=== PATIENT | male | born 1940 | race Caucasian/White ===

== ENCOUNTER 2018-05-22 10:10 | Inpatient (IN) ==
[2018-05-22 10:45] LABS: Baso # (Auto) 0.1 th/mm3 (0.0-0.2); Baso % (Auto) 1.2 % (0.0-2.0); Eos # (Auto) 0.2 th/mm3 (0.0-0.4); Eos % (Auto) 3.1 % (0.0-4.0); Hematocrit 26.7 % (39.0-51.0); Hemoglobin 8.7 gm/dL (13.0-17.0); Lymph % (Auto) 16.8 % (9.0-44.0); Mean Corpuscular HGB Conc 32.6 % (32.0-36.0); Mean Corpuscular Hemoglobin 26.3 pg (27.0-34.0); Mean Corpuscular Volume 80.7 fL (80.0-100.0); Mean Platelet Volume 8.6 fL (7.0-11.0); Mono # (Auto) 0.4 th/mm3 (0.0-0.9); Mono % (Auto) 7.4 % (0.0-8.0); Neut # (Auto) 4.3 th/mm3 (1.8-7.7); Neut % (Auto) 71.5 % (16.0-70.0); Platelet Count 227 th/mm3 (150-450); Red Blood Count 3.31 mil/mm3 (4.50-5.90); Red Cell Distribution Width 14.6 % (11.6-17.2)
--- NOTE | 2018-05-22 10:48 | XR ---
EXAM DATE: 05/22/2018 10:22 AM EDT AGE/SEX: 78 years / Male INDICATIONS: Chest pains mid sternal with pressure. CLINICAL DATA: This is the patient's subsequent encounter. Patient reports that signs and symptoms h ave been present for 1 day and indicates a pain score of 8/10. MEDICAL/SURGICAL HISTORY: None. None. COMPARISON: [facility] [place], CHEST SINGLE AP, 07/15/2015. . FINDINGS: Cardiomegaly with mild basilar airspace disease and some interstitial prominence that may represent m ild edema. Trace pleural fluid. No pneumothorax. CONCLUSION: Cardiomegaly with probable mild pulmonary edema and basilar atelectasis. Trace pleural fluid. Electronically signed by: Brennon Sanchez MD 05/22/2018 10:46 AM EDT
--- NOTE | 2018-05-22 10:57 | ED ---
HPI General Chief complaint: Chest Pain Stated complaint: e Time Seen by Provider: 05/22/18 10:22 History of Present Illness HPI narrative: Patient is a 78-year-old male presents emergency department with exertional tight sensation in the middle of his chest radiating to both shoulders and up into his neck. Associated with some diaphoresis and shortness of breath which she states is extreme. He states is progressing to the point where he is can only do minimal exertion until he noticed he went to the [place] [facility] after having an episode yesterday, they referred him here by EVAC. He does have a history of left bundle branch block. He states he was last stress test about 6 months ago at an outside facility. He is never had a cardiac catheterization. He was also told that he has lung problems that he developed in the service and his shortness of breath gradually got worse is getting older which he states is true but something different going on today. symptoms moderate, currently resolved, associated signs symptoms in context as above, provoking factors as above. No history of long trips blood clots in his legs or chest. Not currently anticoagulated per Related Data Home Medications Medication Instructions Recorded Confirmed albuterol sulfate 2.5 mg INHALATION QID 05/22/18 05/22/18 amlodipine 5 mg PO DAILY 05/22/18 05/22/18 aspirin [Aspirin Low Dose] 81 mg PO DAILY 05/22/18 05/22/18 budesonide-formoterol 2 puff INHALATION BID 05/22/18 05/22/18 diclofenac sodium 4 g TOPICAL QID 05/22/18 05/22/18 enalapril maleate 10 mg PO DAILY 05/22/18 05/22/18 finasteride 5 mg PO DAILY 05/22/18 05/22/18 metformin 500 mg PO BID 05/22/18 05/22/18 pvaxwfmx-eyuucjcu-gywhaev fum 9 mg PO DAILY 05/22/18 05/22/18 [Multi Vitamin] pravastatin 40 mg PO DAILY 05/22/18 05/22/18 terazosin 10 mg PO DAILY 05/22/18 05/22/18 Allergies Allergy/AdvReac Type Severity Reaction Status Date / Time rosuvastatin AdvReac Mild CRAMPS Verified 05/22/18 10:20 Review of Systems ROS: all other systems reviewed are negative [facility] Family History Family History Other Diabetes Social History Social History Substance History: No History of Abuse Second Hand Smoke Exposure: No Smoking Status: Former smoker Tobacco Type: Cigarettes How Often Do You Have a Drink Containing Alcohol: Never Recent Travel in [facility] within the Last 8 Weeks: No Recent Out of Country Travel within the Last 8 Weeks: No Immunization History Tetanus Immunization: >5 Years Hx Influenza Vaccine This Season: No Exam Narrative Exam Narrative: GENERAL: Well-developed well-nourished quite pleasant male in no obvious distress. SKIN: Focused skin assessment warm/dry. HEAD: Atraumatic. Normocephalic. EYES: Pupils equal and round. No scleral icterus. No injection or drainage. ENT: No nasal bleeding or discharge. Mucous membranes pink and moist. NECK: Trachea midline. No JVD. CARDIOVASCULAR: Regular rate and rhythm. No murmur appreciated. 2+ [place] pulses in all 4 extremities, no carotid bruits, no chest wall tenderness, no murmurs gallops or rubs. RESPIRATORY: No accessory muscle use. Clear to auscultation. Breath sounds equal bilaterally. GASTROINTESTINAL: Abdomen soft, non-tender, nondistended. Hepatic and splenic margins not palpable. MUSCULOSKELETAL: No obvious deformities. No clubbing. No cyanosis. No edema. NEUROLOGICAL: Awake and alert. No obvious cranial nerve deficits. Motor grossly within normal limits. Normal speech. PSYCHIATRIC: Appropriate mood and affect; insight and judgment normal. Course Initial Documented Vital Signs Temperature 97.5 F L 05/22/18 10:14 Pulse Rate 55 L 05/22/18 10:14 Respiratory Rate 18 05/22/18 10:14 Blood Pressure 176/74 H 05/22/18 10:14 Pulse Oximetry 98 05/22/18 10:14 Last Documented Vital Signs Temperature 98.0 F 05/23/18 12:00 Pulse Rate 51 L 05/23/18 12:00 Respiratory Rate 18 05/23/18 12:00 Blood Pressure 137/70 05/23/18 12:00 Pulse Oximetry 97 05/23/18 12:54 Medical Decision Making MDM Narrative Medical decision making narrative: does not show any signs of active ischemia.Patient room to the emergency department, he has some high risk features to his chest pain with exertional type chest pain and tightness. The company with his shortness of breath and apparent pulmonary edema I think that he needs admission to the hospital for further workup and cardiology consultation. Initial troponin negative, EKG does not show any signs of active ischemia but does have a left bundle branch block. This is new compared to previous tracing. However the patient currently comfortable does not meet STEMI criteria and there is no Sgarbossa criteria on this EKG. patient was discussed with medicine for admission and they are agreeable. He was given aspirin in the emergency department, nitroglycerin held as patient currently chest pain-free. He was revisited several times by me and it continues to appear very comfortable heme dynamically stable. On the subject of his pulmonary edema the patient has been saturating well is not in any respiratory distress. There is trace edema of the lower extremities bilaterally. Medical Screen Exam Complete: Yes Emergency Medical Condition: Yes Differential Diagnosis Differential Diagnosis: ACS, NM, coronary disease, pulmonary edema, new onset CHF peer Lab Data Result diagrams: 05/23/18 05:59 05/22/18 10:20 Lab Results 05/22/18 05/22/18 05/22/18 Range/Units 10:20 10:20 10:20 WBC 6.0 (4.0-11.0) th/mm3 RBC 3.31 L (4.50-5.90) mil/mm3 Hgb 8.7 L (13.0-17.0) gm/dL Hct 26.7 L (39.0-51.0) % MCV 80.7 (80.0-100.0) fL MCH 26.3 L (27.0-34.0) pg MCHC 32.6 (32.0-36.0) % RDW 14.6 (11.6-17.2) % Plt Count 227 (150-450) th/mm3 MPV 8.6 (7.0-11.0) fL Neut % (Auto) 71.5 H (16.0-70.0) % Lymph % (Auto) 16.8 (9.0-44.0) % [place] % (Auto) 7.4 (0.0-8.0) % Eos % (Auto) 3.1 (0.0-4.0) % Baso % (Auto) 1.2 (0.0-2.0) % Neut # (Auto) 4.3 (1.8-7.7) th/mm3 Lymph # (Auto) 1.0 (1.0-4.8) th/mm3 [place] # (Auto) 0.4 (0.0-0.9) th/mm3 Eos # (Auto) 0.2 (0.0-0.4) th/mm3 Baso # (Auto) 0.1 (0.0-0.2) th/mm3 WBC Differential . Differential Comment Auto diff final PT (9.8-11.6) sec INR Ratio APTT (24.3-30.1) sec Sodium 141 (136-145) meq/L Potassium 4.8 (3.5-5.1) meq/L Chloride 109 H (98-107) meq/L Carbon Dioxide 23.3 (21.0-32.0) meq/L Anion Gap 9 (5-15) meq/L BUN 20 H (7-18) mg/dL Creatinine 1.27 (0.60-1.30) mg/dL Estimated GFR 55 L (>89) mL/min POC Glucose (68-110) mg/dl Random Glucose 109 H (74-106) mg/dL Calcium 8.2 L (8.5-10.1) mg/dL Total Bilirubin 0.3 (0.2-1.0) mg/dL AST 17 (15-37) U/L ALT 22 (12-78) U/L Alkaline Phosphatase 66 (45-117) U/L Troponin I 0.04 (0.02-0.05) ng/mL B-Natriuretic Peptide 316 H (0-100) pg/mL Total Protein 7.0 (6.4-8.2) g/dL Albumin 3.2 L (3.4-5.0) g/dL 05/22/18 05/22/18 05/22/18 Range/Units 13:55 16:17 16:58 WBC 5.7 (4.0-11.0) th/mm3 RBC 3.20 L (4.50-5.90) mil/mm3 Hgb 8.6 L (13.0-17.0) gm/dL Hct 25.8 L (39.0-51.0) % MCV 80.6 (80.0-100.0) fL MCH 26.8 L (27.0-34.0) pg MCHC 33.2 (32.0-36.0) % RDW 14.7 (11.6-17.2) % Plt Count 222 (150-450) th/mm3 MPV 8.4 (7.0-11.0) fL Neut % (Auto) (16.0-70.0) % Lymph % (Auto) (9.0-44.0) % [place] % (Auto) (0.0-8.0) % Eos % (Auto) (0.0-4.0) % Baso % (Auto) (0.0-2.0) % Neut # (Auto) (1.8-7.7) th/mm3 Lymph # (Auto) (1.0-4.8) th/mm3 [place] # (Auto) (0.0-0.9) th/mm3 Eos # (Auto) (0.0-0.4) th/mm3 Baso # (Auto) (0.0-0.2) th/mm3 WBC Differential Differential Comment PT 11.0 (9.8-11.6) sec INR 1.1 Ratio APTT 27.8 (24.3-30.1) sec Sodium (136-145) meq/L Potassium (3.5-5.1) meq/L Chloride (98-107) meq/L Carbon Dioxide (21.0-32.0) meq/L Anion Gap (5-15) meq/L BUN (7-18) mg/dL Creatinine (0.60-1.30) mg/dL Estimated GFR (>89) mL/min POC Glucose (68-110) mg/dl Random Glucose (74-106) mg/dL Calcium (8.5-10.1) mg/dL Total Bilirubin (0.2-1.0) mg/dL AST (15-37) U/L ALT (12-78) U/L Alkaline Phosphatase (45-117) U/L Troponin I 0.05 (0.02-0.05) ng/mL B-Natriuretic Peptide (0-100) pg/mL Total Protein (6.4-8.2) g/dL Albumin (3.4-5.0) g/dL 05/22/18 05/22/18 05/22/18 Range/Units 18:35 21:13 21:21 WBC (4.0-11.0) th/mm3 RBC (4.50-5.90) mil/mm3 Hgb (13.0-17.0) gm/dL Hct (39.0-51.0) % MCV (80.0-100.0) fL MCH (27.0-34.0) pg MCHC (32.0-36.0) % RDW (11.6-17.2) % Plt Count (150-450) th/mm3 MPV (7.0-11.0) fL Neut % (Auto) (16.0-70.0) % Lymph % (Auto) (9.0-44.0) % [place] % (Auto) (0.0-8.0) % Eos % (Auto) (0.0-4.0) % Baso % (Auto) (0.0-2.0) % Neut # (Auto) (1.8-7.7) th/mm3 Lymph # (Auto) (1.0-4.8) th/mm3 [place] # (Auto) (0.0-0.9) th/mm3 Eos # (Auto) (0.0-0.4) th/mm3 Baso # (Auto) (0.0-0.2) th/mm3 WBC Differential Differential Comment PT (9.8-11.6) sec INR Ratio APTT (24.3-30.1) sec Sodium (136-145) meq/L Potassium (3.5-5.1) meq/L Chloride (98-107) meq/L Carbon Dioxide (21.0-32.0) meq/L Anion Gap (5-15) meq/L BUN (7-18) mg/dL Creatinine (0.60-1.30) mg/dL Estimated GFR (>89) mL/min POC Glucose 96 240 H (68-110) mg/dl Random Glucose (74-106) mg/dL Calcium (8.5-10.1) mg/dL Total Bilirubin (0.2-1.0) mg/dL AST (15-37) U/L ALT (12-78) U/L Alkaline Phosphatase (45-117) U/L Troponin I 0.05 (0.02-0.05) ng/mL B-Natriuretic Peptide (0-100) pg/mL Total Protein (6.4-8.2) g/dL Albumin (3.4-5.0) g/dL 05/22/18 05/23/18 05/23/18 Range/Units 21:21 05:59 06:10 WBC 6.5 (4.0-11.0) th/mm3 RBC 3.21 L (4.50-5.90) mil/mm3 Hgb 8.6 L (13.0-17.0) gm/dL Hct 25.8 L (39.0-51.0) % MCV 80.2 (80.0-100.0) fL MCH 26.9 L (27.0-34.0) pg MCHC 33.5 (32.0-36.0) % RDW 14.3 (11.6-17.2) % Plt Count 236 (150-450) th/mm3 MPV 9.6 (7.0-11.0) fL Neut % (Auto) (16.0-70.0) % Lymph % (Auto) (9.0-44.0) % [place] % (Auto) (0.0-8.0) % Eos % (Auto) (0.0-4.0) % Baso % (Auto) (0.0-2.0) % Neut # (Auto) (1.8-7.7) th/mm3 Lymph # (Auto) (1.0-4.8) th/mm3 [place] # (Auto) (0.0-0.9) th/mm3 Eos # (Auto) (0.0-0.4) th/mm3 Baso # (Auto) (0.0-0.2) th/mm3 WBC Differential Differential Comment PT (9.8-11.6) sec INR Ratio APTT 51.3 H D 39.0 H D (24.3-30.1) sec Sodium (136-145) meq/L Potassium (3.5-5.1) meq/L Chloride (98-107) meq/L Carbon Dioxide (21.0-32.0) meq/L Anion Gap (5-15) meq/L BUN (7-18) mg/dL Creatinine (0.60-1.30) mg/dL Estimated GFR (>89) mL/min POC Glucose (68-110) mg/dl Random Glucose (74-106) mg/dL Calcium (8.5-10.1) mg/dL Total Bilirubin (0.2-1.0) mg/dL AST (15-37) U/L ALT (12-78) U/L Alkaline Phosphatase (45-117) U/L Troponin I (0.02-0.05) ng/mL B-Natriuretic Peptide (0-100) pg/mL Total Protein (6.4-8.2) g/dL Albumin (3.4-5.0) g/dL 05/23/18 05/23/18 Range/Units 07:22 11:56 WBC (4.0-11.0) th/mm3 RBC (4.50-5.90) mil/mm3 Hgb (13.0-17.0) gm/dL Hct (39.0-51.0) % MCV (80.0-100.0) fL MCH (27.0-34.0) pg MCHC (32.0-36.0) % RDW (11.6-17.2) % Plt Count (150-450) th/mm3 MPV (7.0-11.0) fL Neut % (Auto) (16.0-70.0) % Lymph % (Auto) (9.0-44.0) % [place] % (Auto) (0.0-8.0) % Eos % (Auto) (0.0-4.0) % Baso % (Auto) (0.0-2.0) % Neut # (Auto) (1.8-7.7) th/mm3 Lymph # (Auto) (1.0-4.8) th/mm3 [place] # (Auto) (0.0-0.9) th/mm3 Eos # (Auto) (0.0-0.4) th/mm3 Baso # (Auto) (0.0-0.2) th/mm3 WBC Differential Differential Comment PT (9.8-11.6) sec INR Ratio APTT (24.3-30.1) sec Sodium (136-145) meq/L Potassium (3.5-5.1) meq/L Chloride (98-107) meq/L Carbon Dioxide (21.0-32.0) meq/L Anion Gap (5-15) meq/L BUN (7-18) mg/dL Creatinine (0.60-1.30) mg/dL Estimated GFR (>89) mL/min POC Glucose 95 98 (68-110) mg/dl Random Glucose (74-106) mg/dL Calcium (8.5-10.1) mg/dL Total Bilirubin (0.2-1.0) mg/dL AST (15-37) U/L ALT (12-78) U/L Alkaline Phosphatase (45-117) U/L Troponin I (0.02-0.05) ng/mL B-Natriuretic Peptide (0-100) pg/mL Total Protein (6.4-8.2) g/dL Albumin (3.4-5.0) g/dL Imaging Data Radiologist's impression: Chest X-Ray 05/22/18 10:22 CONCLUSION: Cardiomegaly with probable mild pulmonary edema and basilar atelectasis. Trace pleural fluid. Discharge Plan Discharge Disposition Patient Disposition: 30 Still Patient Discharge Details Diagnosis: Angina pectoris, unstable Physicians Team ED Provider: Justice Vera Primary Care Provider: UNKNOWN, Attending Provider: Juliana Fuentes Other Providers: Donna Chin Discharge Interventions Interventions: ED Discharge Assessment Last Done: 05/22/18 17:33 Status ED Status: Left Department Discharge Information Discharge Date/Time: 05/22/18 17:47
[2018-05-22 11:02] LABS: Alanine Aminotransferase 22 U/L (12-78); Albumin 3.2 g/dL (3.4-5.0); Anion Gap 9 meq/L (5-15); Aspartate Aminotransferase 17 U/L (15-37); Blood Urea Nitrogen 20 mg/dL (7-18); Calcium 8.2 mg/dL (8.5-10.1); Carbon Dioxide 23.3 meq/L (21.0-32.0); Chloride 109 meq/L (98-107); Glomerular Filtration Rate 55 mL/min (>89); Glucose,Random 109 mg/dL (74-106); Potassium 4.8 meq/L (3.5-5.1); Sodium 141 meq/L (136-145)
[2018-05-22 11:06] LABS: Alkaline Phosphatase 66 U/L (45-117); Troponin I 0.04 ng/mL (0.02-0.05)
[2018-05-22] MEDS ORDERED: Heparin 10,000 UNITS/10 ML Vial (for IV use) IV.PUSH STA (16:07)
[2018-05-22] MEDS ORDERED: Heparin Drip 25,000 UNIT/250 ML BAG IV.CONT PRN (16:15)
[2018-05-22] MEDS ORDERED: Dextrose 50% in Water 50 ML Vial IV.PUSH PRN (16:16)
--- NOTE | 2018-05-22 16:24 | P.HP ---
History of Present Illness Primary Care Physician: UNKNOWN History of Present Illness: 78-year-old white male being admitted for chest pain. Patient was in his usual state of health until over the last 2 days when he began experience a worsening of his intermittent chest pains that he has been feeling for about a month. Says he had chest pain upon exertion, simple ambulation with precipitated. It occurred again this morning when he was doing his physical therapy session. He went over to his [place] doctor in the clinic and says he had an EKG done and was thus referred to them via 911 to the emergency department. Patient says that his chest pain worsens with exertion and subsides with rest. Says he takes Advil daily for his arthritis so he cannot tell if it really helped his pain otherwise. Denies any changes in pain with positioning. Says he also had some pain with inspiration as well. Denies any nausea vomiting fevers or chills. Says he had a stress test done at the [place] sometime within the last 3 months but does not know of the results. Says he also had an echocardiogram done at the [place] as well. He does not know to have any diagnosis of heart failure. Denies ever having cardiac stents or bypass surgery in the past. Says he has arthritis hypertension and hypercholesterolemia and diabetes. Emergency department patient was noted to be anemic with a hemoglobin of 8.7. His EKGs did show some upsloping of the ST segment. Troponin was tracely elevated at 0.04. Patient was given aspirin. Chest x-ray which I apparently reviewed shows findings suggestive of mild pulmonary edema. Social history entails that he lives alone, says he has a neighbor that checks on him or cause him quite frequently. Inpatient Certification: I certify that the inpatient services were ordered in accordance with Medicare regulations governing the order. This includes certification that hospital inpatient services are reasonable and necessary and in the case of services not specified as inpatient-only under 42 CFR 419.22(n), that they are appropriately provided as inpatient services in accordance to with the 2-midnight benchmark under 43 CFR 412.3(e) Estimated Total Length of Stay (Days): 2 Plans for Post Hospital Care: Not yet determined Review of Systems All other systems reviewed negative except as stated in HPI PENDING SALE TO [facility] - History History Provided By: Patient - Medical History Medical History: Medical History (Last Reviewed 05/22/18 @ 16:21 by Monroe Juarez MD) Diabetes HTN (hypertension) Hyperlipemia Prostate CA - Surgical History Surgical History: Surgical History (Last Reviewed 05/22/18 @ 16:21 by Monroe Juarez MD) History of tonsillectomy and adenoidectomy - Family History Family History: Family History (Last Updated 05/22/18 @ 16:21 by Monroe Juarez MD) Other Diabetes - Social History I have reviewed the patient's Social History: Yes - Tobacco History Second Hand Smoke Exposure: No Tobacco Use In Past 30 Days: No Smoking Status: Former smoker - Alcohol History How Often Do You Have a Drink Containing Alcohol: Never - Substance Use History Substance History: No History of Abuse - Travel History Recent Travel in the [place] Within the Last 8 Weeks: No Recent Travel Out of the Country Within the Last 8 Weeks: No - Immunization History Tetanus Immunization: >5 Years Hx Influenza Vaccine This Season: No Medications and Allergies Active Medications: Active Medications Aspirin (Aspirin Chew) 81 mg PO DAILY WENDY Atorvastatin Calcium (Lipitor) 40 mg PO HS WENDY Budesonide/Formoterol Fumarate (Symbicort 160/4.5 Mcg Inh) 2 puff INH BID WENDY Dextrose (D50w Vial) 50 ml IV.PUSH UNSCH PRN PRN Reason: PER HYPOGLYCEMIA PROTOCOL Furosemide (Lasix Inj) 40 mg IV.PUSH BID@0900,1800 WEND[facility] Glucagon (Glucagon Inj) 1 mg OTHER PRN PRN PRN Reason: for Hypoglycemia Protocol Heparin Sodium/Dextrose (Heparin/D5w 25,000 U/250 Ml) 25,000 unit in 250 mls @ 10 mls/hr IV.CONT TITRATE PRN; Protocol PRN Reason: Per Protocol Insulin Aspart (Novolog Insulin Correctional Sugar Inj) 0 unit SQ ACHS WENDY; Protocol Metoprolol Tartrate (Lopressor) 12.5 mg PO ONCE ONE Stop: 05/22/18 16:18 Metoprolol Tartrate (Lopressor) 12.5 mg PO BID WENDY Potassium Chloride (Kcl) 10 meq PO BID WENDY Sodium Chloride (Ns Flush) 2 ml IV.FLUSH UNSCH PRN PRN Reason: FLUSH AFTER USING IV ACCESS Sodium Chloride (Ns Flush) 2 ml IV.FLUSH BID WENDY Sodium Chloride (Ns Flush) 2 ml IV.FLUSH UNSCH PRN PRN Reason: FLUSH AFTER USING IV ACCESS Allergies Allergy/AdvReac Type Severity Reaction Status Date / Time rosuvastatin AdvReac Mild CRAMPS Verified 05/22/18 10:20 Home Medications Medication Instructions Recorded Confirmed Type albuterol sulfate 2.5 mg INHALATION QID 05/22/18 05/22/18 History amlodipine 5 mg PO DAILY 05/22/18 05/22/18 History aspirin [Aspirin Low Dose] 81 mg PO DAILY 05/22/18 05/22/18 History budesonide-formoterol 2 puff INHALATION BID 05/22/18 05/22/18 History diclofenac sodium 4 g TOPICAL QID 05/22/18 05/22/18 History enalapril maleate 10 mg PO DAILY 05/22/18 05/22/18 History finasteride 5 mg PO DAILY 05/22/18 05/22/18 History metformin 500 mg PO BID 05/22/18 05/22/18 History fzwlvruk-yucbpbwx-gipfafc fum 9 mg PO DAILY 05/22/18 05/22/18 History [Multi Vitamin] pravastatin 40 mg PO DAILY 05/22/18 05/22/18 History terazosin 10 mg PO DAILY 05/22/18 05/22/18 History Exam Vital signs: Vital Signs 05/22/18 10:14 05/22/18 10:27 05/22/18 13:10 Temperature 97.5 F L Pulse Rate 55 L 55 L 53 L Respiratory Rate 18 18 Blood Pressure 176/74 H 178/78 H Pulse Oximetry 98 98 98 Intake & Output 05/21/18 05/22/18 05/22/18 18:59 06:59 18:59 Weight 79.379 kg Narrative: VS: afebrile GENERAL: Resting in bed comfortably, then at one point he started experiencing chest pain suddenly SKIN: Warm and dry. EYES: No scleral icterus. No injection or drainage. ENT: No nasal bleeding or discharge. CARDIOVASCULAR: Regular rate and rhythm. no murmurs RESPIRATORY: No accessory muscle use. Diminished breath sounds in the bases. No wheezing. No labored breathing. GASTROINTESTINAL: Abdomen soft, non-tender, nondistended. Extremities: No clubbing, cyanosis, or edema. No obvious deformities. MUSCULOSKELETAL: adequate muscle bulk and tone for age and habitus NEUROLOGICAL: Awake and alert. No obvious cranial nerve deficits. No facial droop nor slurred speech noted. PSYCHIATRIC: Appropriate mood and affect; insight and judgment normal. Results - Labs CBC & Chem 7: 05/23/18 05:59 05/22/18 10:20 Labs: Laboratory Results - last 24 hr 05/22/18 05/22/18 05/22/18 10:20 10:20 10:20 WBC 6.0 RBC 3.31 L Hgb 8.7 L Hct 26.7 L MCV 80.7 MCH 26.3 L MCHC 32.6 RDW 14.6 Plt Count 227 MPV 8.6 Neut % (Auto) 71.5 H Lymph % (Auto) 16.8 [place] % (Auto) 7.4 Eos % (Auto) 3.1 Baso % (Auto) 1.2 Neut # (Auto) 4.3 Lymph # (Auto) 1.0 [place] # (Auto) 0.4 Eos # (Auto) 0.2 Baso # (Auto) 0.1 WBC Differential . Differential Comment Auto diff final Sodium 141 Potassium 4.8 Chloride 109 H Carbon Dioxide 23.3 Anion Gap 9 BUN 20 H Creatinine 1.27 Estimated GFR 55 L Random Glucose 109 H Calcium 8.2 L Total Bilirubin 0.3 AST 17 ALT 22 Alkaline Phosphatase 66 Troponin I 0.04 B-Natriuretic Peptide 316 H Total Protein 7.0 Albumin 3.2 L 05/22/18 13:55 WBC RBC Hgb Hct MCV MCH MCHC RDW Plt Count MPV Neut % (Auto) Lymph % (Auto) [place] % (Auto) Eos % (Auto) Baso % (Auto) Neut # (Auto) Lymph # (Auto) [place] # (Auto) Eos # (Auto) Baso # (Auto) WBC Differential Differential Comment Sodium Potassium Chloride Carbon Dioxide Anion Gap BUN Creatinine Estimated GFR Random Glucose Calcium Total Bilirubin AST ALT Alkaline Phosphatase Troponin I 0.05 B-Natriuretic Peptide Total Protein Albumin - Imaging Impressions Chest X-Ray 05/22/18 10:22 CONCLUSION: Cardiomegaly with probable mild pulmonary edema and basilar atelectasis. Trace pleural fluid. Caprini VTE Risk Assessment Caprini VTE Risk Assessment: Moderate/High Risk (score >= 2) Caprini Risk Assessment Model: Point Value = 1 Point Value = 2 Point Value = 3 Point Value = 5 Age 41-60 Minor surgery BMI > 25 kg/m2 Swollen legs Varicose veins or History of unexplained or recurrent spontaneous Oral contraceptives or hormone replacement Sepsis (< 1 month) Serious lung disease, including pneumonia (< 1 month) Abnormal pulmonary function Acute myocardial infarction Congestive heart failure (< 1 month) History of inflammatory bowel disease Medical patient at bed rest Age 61-74 Arthroscopic surgery Major open surgery (> 45 min) Laparoscopic surgery (> 45 min) Malignancy Confined to bed (> 72 hours) Immobilizing plaster cast Central venous access Age >= 75 History of VTE Family history of VTE Factor V Leiden Prothrombin [id number] Lupus anticoagulant Anticardiolipin antibodies Elevated serum homocysteine Heparin-induced thrombocytopenia Other congenital or acquired thrombophilia Stroke (< 1 month) Elective arthroplasty Hip, pelvis, or leg fracture Acute spinal cord injury (< 1 month) Prophylaxis Regimen: Total Risk Factor Score Risk Level Prophylaxis Regimen 0-1 Low Early ambulation 2 Moderate Order ONE of the following: *Sequential Compression Device (SCD) *Heparin 5000 units SQ BID 3-4 Higher Order ONE of the following medications: *Heparin 5000 units SQ TID *Enoxaparin/Lovenox 40 mg SQ daily (WT < 150 kg, CrCl > 30 mL/min) *Enoxaparin/Lovenox 30 mg SQ daily (WT < 150 kg, CrCl > 10-29 mL/min) *Enoxaparin/Lovenox 30 mg SQ BID (WT < 150 kg, CrCl > 30 mL/min) AND/OR *Sequential Compression Device (SCD) 5 or more Highest Order ONE of the following medications: *Heparin 5000 units SQ TID (Preferred with Epidurals) *Enoxaparin/Lovenox 40 mg SQ daily (WT < 150 kg, CrCl > 30 mL/min) *Enoxaparin/Lovenox 30 mg SQ daily (WT < 150 kg, CrCl > 10-29 mL/min) *Enoxaparin/Lovenox 30 mg SQ BID (WT < 150 kg, CrCl > 30 mL/min) AND *Sequential Compression Device (SCD) Assessment and Plan - Plan 78-year-old white male being admitted for chest pain. Concerning for ACS versus pulmonary embolism. Chest pain Troponins are minimally elevated at 0.04, I independently reviewed EKG which does show mild upsloping of the ST segment. Relayed this to cardiology who will evaluate the patient promptly. I will start a heparin drip as well as Lipitor and metoprolol. Patient was already given aspirin. -If cardiac evaluation is unremarkable or is deferred, proceed with CTA to rule out pulmonary embolism Mild pulmonary edema Could be secondary to cardiac etiology as above, start IV Lasix -BMP in a.m. Hypertension Resume home medications tomorrow if blood pressure stable after initial cardiac evaluation BPH Continue home Flomax and finasteride Diabetes Low-dose sliding scale with Accu-Cheks Heparin drip
[2018-05-22] MEDS ORDERED: Metoprolol Tartrate 25 MG Tablet PO ONE (16:35)
--- NOTE | 2018-05-22 16:37 | P.CONCA ---
History of Present Illness Service: Cardiology Consult date: 05/22/18 Requesting Physician: Justice Vera Reason for Consult: Chest pain Primary Care Provider: UNKNOWN History of Present Illness: This is a very pleasant 70-year-old male who presented to the emergency department with exertional chest pain and shortness of breath that started yesterday. Patient has a history of hypertension, diabetes, hyperlipidemia, COPD and prostate cancer. 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 He said he had to sit down for about 15 minutes until it completely went away, then he proceeded to go back to work. While working again, he developed the same symptoms of chest pain and shortness of breath, he had to sit down and take another break. While leaving work, he could only walk about 5 feet without becoming short of breath and developing chest pain. While at home, he developed chest pain and shortness of breath again while taking a shower and went and sat in his chair and fell asleep. This morning when he awoke he went to pulmonary rehab. While exercising, he developed the same chest pain, shortness of breath and became diaphoretic, rehab sent him to the [facility]. After evaluation at the [facility], [facility] was called and patient was transported to [place] emergency department. Cardiac enzymes are not trending up at this time. Currently he denies any chest pain, pressure, palpitations or edema. He does state that he would not be able to get up and walk to the door without developing chest pain and shortness of breath. Review of Systems All other systems reviewed negative except as stated in HPI PMFSH - History History Provided By: Patient - Medical History Medical History: Medical History (Last Reviewed 05/22/18 @ 16:21 by Monroe Juraez MD) Diabetes HTN (hypertension) Hyperlipemia Prostate CA - Surgical History Surgical History: Surgical History (Last Reviewed 05/22/18 @ 16:21 by Monroe Juarez MD) History of tonsillectomy and adenoidectomy - Tobacco History Second Hand Smoke Exposure: No Tobacco Use In Past 30 Days: No Smoking Status: Former smoker - Alcohol History How Often Do You Have a Drink Containing Alcohol: Never - Substance Use History Substance History: No History of Abuse - Travel History Recent Travel in the [place] Within the Last 8 Weeks: No Recent Travel Out of the Country Within the Last 8 Weeks: No - Immunization History Tetanus Immunization: >5 Years Hx Influenza Vaccine This Season: No Medications and Allergies Allergies Allergy/AdvReac Type Severity Reaction Status Date / Time rosuvastatin AdvReac Mild CRAMPS Verified 05/22/18 10:20 Home Medications Medication Instructions Recorded Confirmed Type albuterol sulfate 2.5 mg INHALATION QID 05/22/18 05/22/18 History amlodipine 5 mg PO DAILY 05/22/18 05/22/18 History aspirin [Aspirin Low Dose] 81 mg PO DAILY 05/22/18 05/22/18 History budesonide-formoterol 2 puff INHALATION BID 05/22/18 05/22/18 History diclofenac sodium 4 g TOPICAL QID 05/22/18 05/22/18 History enalapril maleate 10 mg PO DAILY 05/22/18 05/22/18 History finasteride 5 mg PO DAILY 05/22/18 05/22/18 History metformin 500 mg PO BID 05/22/18 05/22/18 History zhzmwrkt-cgsjpaia-iqrgisb fum 9 mg PO DAILY 05/22/18 05/22/18 History [Multi Vitamin] pravastatin 40 mg PO DAILY 05/22/18 05/22/18 History terazosin 10 mg PO DAILY 05/22/18 05/22/18 History Active Medications: Active Medications Aspirin (Aspirin Chew) 81 mg PO DAILY WENDY Furosemide (Lasix Inj) 40 mg IV.PUSH BID@0900,1800 WENDY Heparin Sodium/Dextrose (Heparin/D5w 25,000 U/250 Ml) 25,000 unit in 250 mls @ 10 mls/hr IV.CONT TITRATE PRN; Protocol PRN Reason: Per Protocol Potassium Chloride (Kcl) 10 meq PO BID WENDY Sodium Chloride (Ns Flush) 2 ml IV.FLUSH UNSCH PRN PRN Reason: FLUSH AFTER USING IV ACCESS Sodium Chloride (Ns Flush) 2 ml IV.FLUSH BID WENDY Sodium Chloride (Ns Flush) 2 ml IV.FLUSH UNSCH PRN PRN Reason: FLUSH AFTER USING IV ACCESS Exam Vital signs: Vital Signs 05/22/18 10:14 05/22/18 10:27 05/22/18 13:10 Temperature 97.5 F L Pulse Rate 55 L 55 L 53 L Respiratory Rate 18 18 Blood Pressure 176/74 H 178/78 H Pulse Oximetry 98 98 98 Intake & Output 05/21/18 05/22/18 05/22/18 18:59 06:59 18:59 Weight 79.379 kg Narrative: GENERAL: This is a well-nourished, well-developed patient, in no apparent distress. Patient speaks in clear complete sentences. Patient is pleasant. HEENT: Head is atraumatic and normocephalic. Neck is supple without lymphadenopathy and trachea is midline. No JVD or carotid bruits. CARDIOVASCULAR: Regular rate and rhythm without, gallops, or rubs. Very faint murmur heard. RESPIRATORY: Fine crackles noted bilaterally lower lobes. Breath sounds equal bilaterally. No wheezes or rhonchi. Chest wall is nontender. No use of accessory muscles. GASTROINTESTINAL: Abdomen is nontender, nondistended. Abdomen soft. No obvious pulsatile mass or bruit. No CVA tenderness. Strong femoral pulses bilaterally. Normal bowel sounds in all quadrants. MUSCULOSKELETAL: Patient is moving upper and lower extremities freely. No calf tenderness or edema, no Homans sign. Strong pulses in upper and lower extremities. NEUROLOGICAL: Patient is alert and oriented. Cranial nerves 2-12 are grossly intact. No focal deficits and speech is clear. SKIN: No rash and turgor is normal. Results 05/22/18 16:58 05/22/18 10:20 Cardiac Enzymes 05/22/18 05/22/18 05/22/18 Range/Units 10:20 10:20 13:55 AST 17 (15-37) U/L Troponin I 0.04 0.05 (0.02-0.05) ng/mL B-Natriuretic Peptide 316 H (0-100) pg/mL Coagulation 05/22/18 Range/Units 10:20 B-Natriuretic Peptide 316 H (0-100) pg/mL CBC 05/22/18 Range/Units 10:20 WBC 6.0 (4.0-11.0) th/mm3 RBC 3.31 L (4.50-5.90) mil/mm3 Hgb 8.7 L (13.0-17.0) gm/dL Hct 26.7 L (39.0-51.0) % Plt Count 227 (150-450) th/mm3 Neut # (Auto) 4.3 (1.8-7.7) th/mm3 Lymph # (Auto) 1.0 (1.0-4.8) th/mm3 Gregg # (Auto) 0.4 (0.0-0.9) th/mm3 Eos # (Auto) 0.2 (0.0-0.4) th/mm3 Baso # (Auto) 0.1 (0.0-0.2) th/mm3 Comprehensive Metabolic Panel 05/22/18 Range/Units 10:20 Sodium 141 (136-145) meq/L Potassium 4.8 (3.5-5.1) meq/L Chloride 109 H (98-107) meq/L Carbon Dioxide 23.3 (21.0-32.0) meq/L BUN 20 H (7-18) mg/dL Creatinine 1.27 (0.60-1.30) mg/dL Calcium 8.2 L (8.5-10.1) mg/dL AST 17 (15-37) U/L ALT 22 (12-78) U/L Alkaline Phosphatase 66 (45-117) U/L Total Protein 7.0 (6.4-8.2) g/dL Albumin 3.2 L (3.4-5.0) g/dL Intake and Output 05/22/18 05/22/18 05/22/18 06:59 14:59 22:59 Other: Weight 79.379 kg Patient Weight 05/23/18 06:59 Weight 79.379 kg - Imaging and Cardiology Imaging: Impressions Chest X-Ray 05/22/18 10:22 CONCLUSION: Cardiomegaly with probable mild pulmonary edema and basilar atelectasis. Trace pleural fluid. Assessment and Plan - Assessment (1) Chest pain Code(s): R07.9 - Chest pain, unspecified Status: Acute (2) Shortness of breath Code(s): R06.02 - Shortness of breath Status: Acute (3) Hypertension Code(s): I10 - Essential (primary) hypertension Status: Chronic - Plan We will place the patient on heparin drip for anticoagulation. 2D echo to assess left ventricular function and valve function. Serial EKGs and cardiac enzymes. [facility] We will proceed with cardiac cath and possible coronary intervention tomorrow. We will continue to monitor patient during his hospitalization. Patient was seen and evaluated by Dr. Chin who participated in care, management and decision-making. - Attending Attestation Patient seen and examined. I reviewed and agree with the evaluation and plan as presented. Proceed with cardiac cath and coronary intervention if necessary tomorrow.
[2018-05-22 17:01] LABS: Activated Partial Thrombo Time 27.8 sec (24.3-30.1); INR 1.1 Ratio
[2018-05-22 17:12] LABS: Hematocrit 25.8 % (39.0-51.0); Hemoglobin 8.6 gm/dL (13.0-17.0); Mean Corpuscular HGB Conc 33.2 % (32.0-36.0); Mean Corpuscular Hemoglobin 26.8 pg (27.0-34.0); Mean Corpuscular Volume 80.6 fL (80.0-100.0); Mean Platelet Volume 8.4 fL (7.0-11.0); Platelet Count 222 th/mm3 (150-450); Red Cell Distribution Width 14.7 % (11.6-17.2); White Blood Count 5.7 th/mm3 (4.0-11.0)
[2018-05-22] MEDS: Insulin NovoLOG Aspart Correctional Sugar Inj SQ SCH ×2 (19:36→21:17)
[2018-05-22] MEDS: Potassium Chloride 10 MEQ ER Capsule PO SCH (20:31)
[2018-05-22] MEDS: Metoprolol Tartrate 25 MG Tablet PO SCH (20:31)
[2018-05-22] MEDS ORDERED: Enoxaparin Inj 30 MG/0.3 ML Syringe SQ SCH (21:00)
[2018-05-22] MEDS: Budesonide-Formoterol 160/4.5 MCG 6 GM Inhaler INH SCH (21:19)
--- NOTE | 2018-05-22 21:59 | ECG ---
Date Performed: 05/22/2018 Time Performed: 10:19:46 PTAGE: 78 years EKG: SINUS BRADYCARDIA LEFT BUNDLE BRANCH BLOCK ABNORMAL ECG PREVIOUS TRACING : 07/15/2015 17.29 Compared to previous tracing, LBBB now present DOCTOR: Donna Chin Interpretating Date/Time 05/22/2018 21:58:07
[2018-05-23 07:06] LABS: Hematocrit 25.8 % (39.0-51.0); Hemoglobin 8.6 gm/dL (13.0-17.0); Mean Corpuscular HGB Conc 33.5 % (32.0-36.0); Mean Corpuscular Hemoglobin 26.9 pg (27.0-34.0); Mean Corpuscular Volume 80.2 fL (80.0-100.0); Mean Platelet Volume 9.6 fL (7.0-11.0); Platelet Count 236 th/mm3 (150-450); Red Blood Count 3.21 mil/mm3 (4.50-5.90); Red Cell Distribution Width 14.3 % (11.6-17.2); White Blood Count 6.5 th/mm3 (4.0-11.0)
[2018-05-23] MEDS: Insulin NovoLOG Aspart Correctional Sugar Inj SQ SCH ×4 (07:33→20:33)
[2018-05-23] MEDS: Potassium Chloride 10 MEQ ER Capsule PO SCH ×2 (08:44→20:35)
[2018-05-23] MEDS: Metoprolol Tartrate 25 MG Tablet PO SCH ×2 (08:45→20:29)
[2018-05-23] MEDS: Budesonide-Formoterol 160/4.5 MCG 6 GM Inhaler INH SCH ×2 (09:39→20:36)
[2018-05-23 12:16] VITALS: RESP 18
[2018-05-23] MEDS ORDERED: Heparin/NS PF Inj 1,500 ML ONE (13:10)
[2018-05-23] MEDS ORDERED: fentaNYL Citrate Inj 100 MCG/2 ML Ampul ONE (13:54)
[2018-05-23] MEDS ORDERED: fentaNYL Citrate Inj 100 MCG/2 ML Ampul IV.PUSH ONE (14:14)
--- NOTE | 2018-05-23 14:53 | CATHPROC ---
[employer] HIS Report Study Information Study Number Admission Scheduled Start Study Start [id number] May 22 2018 2:36PM 05/23/2018 May 23 2018 1:38PM [facility] Cardiac Pacer/ICD Admit Source Facility Department Emergency department [facility] - Cafe Assistant Physician and Clinical Staff Initial Donna Del Valle Web Consultant Abimael RN, Med RecordLauren Roth,(R) (BS) Scrub Arnel Corbett RCIS(BS) Procedures Performed Procedure Location (Site) Vessel Name Angiogram LV LV Ventricle Coronary Angiograms LCA Left Coronary Coronary Angiograms RCA Right Coronary L Heart Cath Equipment Time Safety Officer Description Size Mfg Part Number Used/Scraped TRANSDUCER, TRUWAVE [id number] 13:54 [employer] CANTRELL * Used W/STOCKCOCK *[id number] 14:38 [employer] VASCADE, FR5 CLOSURE SYSTEM FR 5 Used *[id number] [id number] *[id number] [id number] *[id number] 13:54 [employer] BLANKET,WARM AIR CCL * Used *[id number] 13:54 [employer] PACK, CCL CUSTOM * Used *[id number] 13:54 [employer] PACER PEN, SKIN DUAL W/ RULER * Used *[id number] PIG ANG 145 DXTERITY [id number] 14:08 [employer] FR 5 Used CATHETER *[id number] 13:[address] [employer] WIRE, 3MMJ .035 180CM 180CM Used *[id number] PROBE COVER, STERILE [id number] 13:54 [employer] MEDICAL * Used ULTRASOUND W/ GEL *[id number] 13:54 [employer] MANIFOLD, 4 PORT * Used *[id number] 13:54 [employer] TUBING, HIGH PRESSURE 48" 48" Used *[id number] 13:54 [employer] OMNIPAQUE, 350 MG, 150ML 150ML [id number] Used [id number] 13:54 [employer] MEDICAL SHEATH, FR5 TERUMO (10CM) FR 5 Used *[id number] History: Current Medications Medication Dosage/Unit Route Frequency Last Date/Time Taken Statins (any) Beta Shoaib ASA HEPARIN History: Allergies Allergy Reaction rosuvastatin CRAMPS History: Risk Factors Family History of Hypertension Dyslipidemia Previous [facility] Previous Heart Failure Premature CAD Yes Yes No No No Prior Valve Prior PCI Prior CABG Surgery No No No Cerebrovascular Peripheral Artery Chronic Lung On Dialysis Diabetes Diabetes Therapy Disease Disease Disease No No No Yes Yes Oral History: Symptoms/Diagnosis Selection Items Chest pain History: Other Current Smoker Method Quit Packs a Day Years Used Pack Years No Cigarettes 35 Years Ago 3 25 75 Labs Hgb (g/dl) Hct (%) WBC (l/cumm) Platelets (thousands) 11.60-17.00 35.00-51.00 4.00-11.00 150.00-450.00 8.6 25.8 6.5 236 Glucose (mg/dl) BUN (mg/dl) Creatinine (mg/dl) BUN:Creatinine (1:x) 74.00-106.00 7.00-18.00 0.50-1.30 10.00-20.00 109 20 1.2 16.7 Na (meq/l) K (meq/l) 136.00-145.00 3.50-5.10 141 4.8 INR (PTT:PT) 0.90-1.10 1.1 Troponin I (ng/ml) CPK-MB (ng/ML) 0.02-0.05 0.50-3.60 0.05 Not Drawn Medication Medication Total Dose (Bolus/Oral) Medication Total Dosage/Unit 1% XYLOCAINE 20 mL FENTANYL 50 mcg VERSED 3 mg Medications (Bolus/Oral) Medication Time Given Dosage/Unit Administered By Reason VERSED 05/23/2018 2:00:54 PM 1 mg Med Varghese RN 1 mg VERSED given in lab by Med Varghese RN in Right Antecubital via Peripheral IV. VERSED 05/23/2018 2:13:14 PM 1 mg Med Varghese RN 1 mg VERSED given in lab by Med Varghese RN via Peripheral IV. FENTANYL 05/23/2018 2:14:21 PM 50 mcg Med Varghese RN 50 mcg FENTANYL given in lab by Med Varghese RN via Peripheral IV. 1% XYLOCAINE 05/23/2018 2:14:30 PM 20 mL Arnel Corbett 20 mL 1% XYLOCAINE given in lab by Arnel Corbett RCIS(BS) in Right Groin via Subcutaneous. VERSED 05/23/2018 2:26:44 PM 1 mg Med Varghese RN 1 mg VERSED given in lab by Med Varghese RN via Peripheral IV. Medication (Drip) Medication Time Given Dosage/Unit Concentration/Unit Diluent (ml) Solutio n HEPARIN DRIP STOPPED 05/23/2018 1:30:46 PM 0 units/hr 0 Patient arrived on 0 units/hr HEPARIN DRIP STOPPED. Pump/Drip Flow = 0 ml/hr using [Solution Name]. IV Solutions 05/23/2018 1:38:39 PM 0 mL (IV) 500 NaCl .9 IV Solutions given in lab by Med Varghese RN in Right Antecubital via Peripheral IV. Pump/Drip Flow = 30 ml/hr using NaCl .9. Initial Case Assessment Cardiovascular HR Rhythm NIBP Chest Pain 51 reg 144/66 4 Edema Present Skin color Skin None Normal Warm Dry Circulatory - Right Pulses Dorsalis Pedis Femoral 2 3 Scale (0,1,2,3,4,d) Circulatory - Left Pulses Dorsalis Pedis Femoral 1 3 Scale (0,1,2,3,4,d) Circulatory - Lower Extremities Color Lower Right Color Lower Left Normal Normal Neurological State Oriented to time-place- Alert Moves all extremities person Respiration - General Respiration Rate SpO2 (%) O2 (lpm) (B/min) 15 100 2 Chronological Log Time Study Chronological Log 13:30:46 Patient arrived on 0 units/hr HEPARIN DRIP STOPPED. Pump/Drip Flow = 0 ml/hr using [Solut ion Name]. 13:38:09 Patient arrived via Bed. 13:38:10 Patient Name, D.O.B, / Armband Verified By R.N. 13:38:11 Consent signed by the physician and the patient and verified by the Cafe Assistant staff. 13:38:12 Pre-op and post- op instructions given; patient acknowledges understanding of instruction s. 13:38:18 Presedation assessment performed by Cafe Assistant RN. 13:38:22 Patient has been NPO for More than 6Hrs. 13:38:23 Skin Breakdown none noted or reported 13:38:24 Patient Warmer Placed on the Table. 13:38:27 Iqra Prominences Protected 13:38:38 A # 20 IV was noted in the Antecubital (right). Grade = 0 IV Solutions given in lab by Med Varghese RN in Right Antecubital via Peripheral IV. Pump/Drip Flow = 30 ml/hr using 13:38:39 NaCl .9. 13:38:39 History and physical on the chart or being dictated. Assessment: Initial Case, HR=51 BPM, Rhythm=reg, DOYE=460/66 mmhg, Chest Pain=4, Edema=None, Co sheryl=Normal, Skin = Warm, Dry Right Pulses: Bradley Ped=2, Femoral=3 Left Pulses: Bradley Ped=1, Femoral=3 13:38:40 Lower Right Extremities: Color=Normal Lower Left Extremities: Color=Normal Neurological: State=Alert, Ox3, LEBLANC Respiration: Resp=15 B/min, PhY4=010 %, O2=2 lpm Vitals capture started with the following parameters, Patient=Adult, Interval=5 min, Initial Pr vgffik=647 mmHg, 13:45:21 Deflation Rate=5 mmHg, Cuff placed on Left Arm 13:46:03 HR=52 bpm, PATL=079/66 mmhg, SpO2=98.0 %, Resp=17 B/min, Pain=4, Iván=10, Rodríguez=2 13:51:02 HR=51 bpm, VZDV=679/69 mmhg, BzR5=217.0 %, Resp=13 B/min, Pain=4, Iván=10, Rodríguez=2 13:53:01 Bilateral groins prepped with 2% chlorhexidine, and draped after a 3 minute waiting time. 13:53:20 paged 13:56:07 HR=50 bpm, USZW=208/68 mmhg, UhP8=060.0 %, Resp=15 B/min, Pain=4, Iván=10, Rodríguez=2 13:57:23 Pressure channel 2 zeroed. 13:58:08 Reference ECG taken 14:00:54 1 mg VERSED given in lab by Med Varghese RN in Right Antecubital via Peripheral IV. 14:01:06 HR=50 bpm, SKHG=282/75 mmhg, IdT8=982.0 %, Resp=15 B/min, Pain=4, Iván=10, Rodríguez=2 14:06:05 HR=51 bpm, ITCV=782/64 mmhg, SpO2=99.0 %, Resp=15 B/min, Pain=4, Iván=10, Rodríguez=2 14:11:02 HR=51 bpm, NQZG=581/74 mmhg, SpO2=99.0 %, Resp=15 B/min, Pain=4, Iván=10, Rodríguez=2 14:13:14 1 mg VERSED given in lab by Med Varghese RN via Peripheral IV. 14:13:44 MD arrived 14:14:21 50 mcg FENTANYL given in lab by Med Varghese RN via Peripheral IV. 14:14:30 20 mL 1% XYLOCAINE given in lab by Arnel Corbett RCIS(BS) in Right Groin via Subcutaneous. 14:16:08 HR=49 bpm, QVFE=288/68 mmhg, SpO2=98.0 %, Resp=11 B/min, Pain=4, Iván=10, Rodríguez=2 Time Out. Correct patient, correct procedure, correct physician, labs, allergies, and equipment verified with label rewinder 14:17:16 team present. Fire risk assesment completed (see hard stop sheet for coding). Time Out Conc urred by MD and individual staff in procedure. 14:17:32 Case Start 14:21:48 HR=47 bpm, UIWG=077/60 mmhg, SpO2=97.0 %, Resp=14 B/min, Pain=4, Iván=10, Rodríguez=2 14:22:20 Access site was Right Femoral Artery. 14:22:30 A SHEATH, FR5 TERUMO (10CM) FR 5 was advanced into the Fem Art (right) using the Percutaneo us technique. 14:23:04 Activated Clotting Time Drawn A PIG ANG 145 DXTERITY CATHETER FR 5 was advanced over a wire. OMNIPAQUE, 350 MG, 150ML 150ML w as used 14:23:10 for injections. Recorded Pressure: LV, HR=51, Condition=Condition 1 14:24:52 (Left Ventricle) LV 156/6/17 14:25:11 The LV was injected at 10 cc/sec for a total of 30. OMNIPAQUE, 350 MG, 150ML 150ML used. 14:26:15 ACT (Normal Range 90-180) = 174 14:26:44 HR=49 bpm, LMCI=480/59 mmhg, SpO2=97.0 %, Resp=12 B/min, Pain=4, Iván=10, Rodríguez=2 14:26:44 1 mg VERSED given in lab by Med Varghese RN via Peripheral IV. Recorded Pressure: LV, Ao, HR=49, Condition=Condition 1 14:26:46 (Left Ventricle) LV 158/-13/14, (Aorta) Ao 133/42/71 14:27:22 Catheter was removed A JL 4.0 INFINITI CATHETER FR 5 was advanced over a wire. OMNIPAQUE, 350 MG, 150ML 150ML was u sed for 14:27:29 injections. 14:28:23 The LCA was injected and visualized at various angles. OMNIPAQUE, 350 MG, 150ML 150ML use d. 14:30:50 Catheter was removed 14:31:03 HR=48 bpm, XRHT=580/61 mmhg, SpO2=98.0 %, Resp=12 B/min, Pain=4, Iván=10, Rodríguez=2 A AR MOD INFINITI CATHETER FR 5 was advanced over a wire. OMNIPAQUE, 350 MG, 150ML 150ML was u sed for 14:32:02 injections. 14:32:15 The RCA was injected and visualized at various angles. OMNIPAQUE, 350 MG, 150ML 150ML use d. 14:32:41 Catheter was removed 14:33:02 Case End (Physician broke scrub) 14:34:05 An injection in the Fem Art (right) was made through the SHEATH, FR5 TERUMO (10CM) FR 5. 14:36:04 HR=49 bpm, ZHCD=820/63 mmhg, SpO2=99.0 %, Resp=12 B/min, Pain=4, Iván=10, Rodríguez=2 14:38:03 VASCADE, FR5 CLOSURE SYSTEM FR 5 placement in the Fem Art (right) 14:41:46 HR=52 bpm, EICE=328/76 mmhg, CkV8=550.0 %, Resp=14 B/min, Pain=4, Iván=10, Rodríguez=2 14:44:16 Vitals capture stopped. 14:44:21 Catheter(s) removed without difficulty 14:44:27 Sterile dressing applied to site 14:44:27 No case complications noted. 14:44:31 Bedside Report will be given. 14:44:31 Implantable Device card placed in patient's chart. 14:44:35 A Left Heart Cath was performed. 14:50:50 [facility] End Study - Contrast Media Used In Study Contrast Total Opened (mL) Total Used (mL) Total Wasted (mL) Omnipaque 90 90 0 End Study - Maximum Contrast Load Max Contrast Load (mL) 328.8 End Study - Radiation Exposure Fluoro Time (minutes) 1.9 End Study - Sheaths Sheaths Pulled By Sheath Hold Time (min) Arnel Corbett End Study - Patient Disposition Complications Transferred To Interventional Outcome No Cafe Assistant Holding No attempt made
[2018-05-23] MEDS ORDERED: Iohexol 350 MG/ML 100 ML Vial (for Cath Lab) IV.SIG ONE (14:58)
--- NOTE | 2018-05-23 15:24 | P.PNIM ---
Subjective Interval history: Patient seen earlier this morning prior to heart catheterization. He reports intermittent chest pain/midepigastric discomfort. No significant shortness of breath. Physical Exam Vital signs: Vital Signs 05/22/18 16:30 05/22/18 18:00 05/22/18 20:00 Temperature 97.6 F 98.2 F Pulse Rate 52 L 54 L Respiratory Rate 20 18 Blood Pressure 168/74 H 134/64 Pulse Oximetry 98 98 05/23/18 00:00 05/23/18 04:00 05/23/18 07:48 Temperature 97.8 F 97.8 F Pulse Rate 56 L 61 Respiratory Rate 18 18 Blood Pressure 101/55 L 138/61 Pulse Oximetry 98 97 97 05/23/18 08:00 05/23/18 12:00 05/23/18 12:54 Temperature 97.2 F L 98.0 F Pulse Rate 61 51 L Respiratory Rate 20 18 Blood Pressure 155/70 H 137/70 Pulse Oximetry 97 94 L 97 Intake & Output 05/22/18 05/23/18 05/23/18 18:59 06:59 18:59 Weight 79.379 kg 78.9 kg Other: # Voids 5 Date of Last Bowel Movement 05/22/18 Narrative: GENERAL: This is a well-nourished, well-developed patient, in no apparent distress. CARDIOVASCULAR: Normal rate and regular rhythm without murmurs, gallops, or rubs. RESPIRATORY: Good respiratory efforts. Breath sounds equal and clear to auscultation bilaterally. GASTROINTESTINAL: Abdomen soft, non-tender, non-distended. Normal active bowel sounds MUSCULOSKELETAL: Extremities without cyanosis, or edema. NEURO: Alert & Oriented x4 to person, place, time, situation. Moves all ext x4 PSYCH: Appropriate mood and affect. Results - Labs CBC & Chem 7: 05/23/18 05:59 05/22/18 10:20 Laboratory Results - last 24 hr 05/22/18 05/22/18 05/22/18 16:17 16:58 18:35 WBC 5.7 RBC 3.20 L Hgb 8.6 L Hct 25.8 L MCV 80.6 MCH 26.8 L MCHC 33.2 RDW 14.7 Plt Count 222 MPV 8.4 PT 11.0 INR 1.1 APTT 27.8 POC Glucose 96 Troponin I 05/22/18 05/22/18 05/22/18 21:13 21:21 21:21 WBC RBC Hgb Hct MCV MCH MCHC RDW Plt Count MPV PT INR APTT 51.3 H D POC Glucose 240 H Troponin I 0.05 05/23/18 05/23/18 05/23/18 05:59 06:10 07:22 WBC 6.5 RBC 3.21 L Hgb 8.6 L Hct 25.8 L MCV 80.2 MCH 26.9 L MCHC 33.5 RDW 14.3 Plt Count 236 MPV 9.6 PT INR APTT 39.0 H D POC Glucose 95 Troponin I 05/23/18 11:56 WBC RBC Hgb Hct MCV MCH MCHC RDW Plt Count MPV PT INR APTT POC Glucose 98 Troponin I Assessment and Plan - Plan 78-year-old white male being admitted for chest pain. Concerning for ACS versus pulmonary embolism. Chest pain Troponins negative. Left bundle branch block on EKG. - Continue heparin drip, Lipitor, and metoprolol. - Appreciate cardiology input. Plan for heart catheterization today. - DW Cardiology after heart cath, Mild nonischemic cardiomyopathy. No significant obstructive lesions. Cardiology recommended GI and pulmonology evaluation. Consult placed. Mild pulmonary edema Could be secondary to cardiac etiology as above, on IV Lasix -BMP in a.m. Hypertension Stable. Antihypertensives as indicated. BPH Continue home Flomax and finasteride Diabetes Low-dose sliding scale with Accu-Cheks Heparin drip
--- NOTE | 2018-05-23 15:30 | ECG ---
Date Performed: 05/22/2018 Time Performed: 14:42:09 PTAGE: 78 years EKG: SINUS BRADYCARDIA LEFT BUNDLE BRANCH BLOCK ABNORMAL ECG PREVIOUS TRACING : 05/22/2018 10.19 Since the previous tracing, no significant change noted DOCTOR: Megan Cazares Interpretating Date/Time 05/23/2018 15:29:02
--- NOTE | 2018-05-23 15:33 | ECG ---
Date Performed: 05/23/2018 Time Performed: 07:25:24 PTAGE: 78 years EKG: Normal Sinus rhythm Left anterior fascicular block QRS changes V3/V4 may be due to LVH but cannot rule out anterior infa rct Possible left ventricular hypertrophy Lateral ST-T changes are probably due to ventricular hypert rophy Abnormal ECG PREVIOUS TRACING : 05/22/2018 14.42 Compared to previous tracing, the QRS widening is not as pr ominent and the conduction disturbances is more consistent with an intraventricular conduction delay than true Left bundle branch block.The conduction disturbance may be rate related as some of the QRS complexes actually have a normal duration. Clinical correlation is recommended DOCTOR: Megan Cazares Interpretating Date/Time 05/23/2018 15:32:22
--- NOTE | 2018-05-23 16:23 | P.CONGI ---
History of Present Illness Consult date: 05/23/18 Consult reason: Anemia/chest pain Chief complaint: chest pain, pulmonary edema History of Present Illness: This is a 78 yo M who presented to the hospital earlier this week with complaints of chest pain. States that the chest pain initially began last week after doing some vigorous manual work outside, it did seem to subside after rest. States he noticed the pain again on Saturday after eating a burrito from [employer] and a 20 oz drink, states the pain radiated across his entire chest and into his shoulders. [place] like his food just did settle in his stomach. Tried drinking Mayela Bessie to see if it would help him burp and get some relief, however this did not improve symptoms. Denies nausea, vomiting, abdominal pain. Pt reports he has been having black, "sticky" stools for one month. Has not told his PCP about this. Takes a baby ASA daily. 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 Reports rare ETOH, quit smoking 30 years ago. Pt has undergone cardiac work up including cardiac catheterization today which was negative. <Bernadette Colin - Last Filed: 05/23/18 16:24> Review of Systems Cardiovascular: Reports chest pain Gastrointestinal: Reports black, tarry stools, Denies abdominal pain, Denies bright, red blood in stools, Denies nausea, Denies vomiting Comments: indigestion <Bernadette Colin - Last Filed: 05/23/18 16:24> PMFSH - History History Provided By: Patient - Medical History Medical History: Medical History (Last Reviewed 05/23/18 @ 15:30 by Tessy Bowden RN) Diabetes HTN (hypertension) Hyperlipemia Prostate CA - Surgical History Surgical History: Surgical History (Last Reviewed 05/22/18 @ 16:21 by Monroe Juarez MD) History of tonsillectomy and adenoidectomy - Family History Family History: Family History (Last Updated 05/22/18 @ 16:21 by Monroe Juarez MD) Other Diabetes - Tobacco History Second Hand Smoke Exposure: No Tobacco Use In Past 30 Days: No Smoking Status: Former smoker Tobacco Type: Cigarettes - Alcohol History How Often Do You Have a Drink Containing Alcohol: Never - Substance Use History Substance History: No History of Abuse - Travel History Recent Travel in the [facility] Within the Last 8 Weeks: No Recent Travel Out of the Country Within the Last 8 Weeks: No - Immunization History Tetanus Immunization: >5 Years Hx Influenza Vaccine This Season: No <DonnyBernadette yates - Last Filed: 05/23/18 16:24> - Medical History Medical History: Medical History (Last Reviewed 05/23/18 @ 15:30 by Tessy Bowden RN) Diabetes HTN (hypertension) Hyperlipemia Prostate CA - Surgical History Surgical History: Surgical History (Last Reviewed 05/22/18 @ 16:21 by Monroe Juarez MD) History of tonsillectomy and adenoidectomy - Family History Family History: Family History (Last Updated 05/22/18 @ 16:21 by Monroe Juarez MD) Other Diabetes <Carol Jaime - Last Filed: 05/23/18 17:05> Medications and Allergies Active Medications: Active Medications Aspirin (Aspirin Chew) 81 mg PO DAILY [facility] Last Admin: 05/23/18 08:45 Dose: 81 mg Atorvastatin Calcium (Lipitor) 40 mg PO HS [facility] Last Admin: 05/22/18 20:31 Dose: 40 mg Budesonide/Formoterol Fumarate (Symbicort 160/4.5 Mcg Inh) 2 puff INH BID [facility] Last Admin: 05/23/18 09:39 Dose: Not Given Dextrose (D50w Vial) 50 ml IV.PUSH UNSCH PRN PRN Reason: PER HYPOGLYCEMIA PROTOCOL Furosemide (Lasix Inj) 40 mg IV.PUSH BID@0900,1800 [facility] Last Admin: 05/23/18 08:47 Dose: 40 mg Glucagon (Glucagon Inj) 1 mg OTHER PRN PRN PRN Reason: for Hypoglycemia Protocol Heparin Sodium/Dextrose (Heparin/D5w 25,000 U/250 Ml) 25,000 unit in 250 mls @ 10 mls/hr IV.CONT TITRATE PRN; Protocol PRN Reason: Per Protocol Last Admin: 05/22/18 17:08 Dose: 1,000 units/hr, 10 mls/hr Insulin Aspart (Novolog Insulin Correctional Sugar Inj) 0 unit SQ ACHS [facility]; Protocol Last Admin: 05/23/18 12:26 Dose: Not Given Metoprolol Tartrate (Lopressor) 12.5 mg PO BID [facility] Last Admin: 05/23/18 08:45 Dose: 12.5 mg Miscellaneous (Pill Splitter) 1 each OTHER DAILY [facility] Last Admin: 05/23/18 09:39 Dose: Not Given Potassium Chloride (Kcl) 10 meq PO BID [facility] Last Admin: 05/23/18 08:44 Dose: 10 meq Sodium Chloride (Ns Flush) 2 ml IV.FLUSH UNSCH PRN PRN Reason: FLUSH AFTER USING IV ACCESS Sodium Chloride (Ns Flush) 2 ml IV.FLUSH BID [facility] Last Admin: 05/23/18 08:47 Dose: Not Given Sodium Chloride (Ns Flush) 2 ml IV.FLUSH UNSCH PRN PRN Reason: FLUSH AFTER USING IV ACCESS <Bernadette Colin - Last Filed: 05/23/18 16:24> Active Medications: Active Medications Aspirin (Aspirin Chew) 81 mg PO DAILY [facility] Last Admin: 05/23/18 08:45 Dose: 81 mg Atorvastatin Calcium (Lipitor) 80 mg PO [facility] Budesonide/Formoterol Fumarate (Symbicort 160/4.5 Mcg Inh) 2 puff INH BID [facility] Last Admin: 05/23/18 09:39 Dose: Not Given Dextrose (D50w Vial) 50 ml IV.PUSH UNSCH PRN PRN Reason: PER HYPOGLYCEMIA PROTOCOL Furosemide (Lasix Inj) 40 mg IV.PUSH BID@0900,1800 [facility] Last Admin: 05/23/18 08:47 Dose: 40 mg Glucagon (Glucagon Inj) 1 mg OTHER PRN PRN PRN Reason: for Hypoglycemia Protocol Heparin Sodium/Dextrose (Heparin/D5w 25,000 U/250 Ml) 25,000 unit in 250 mls @ 10 mls/hr IV.CONT TITRATE PRN; Protocol PRN Reason: Per Protocol Last Admin: 05/22/18 17:08 Dose: 1,000 units/hr, 10 mls/hr Pantoprazole Sodium 80 mg/ (Sodium Chloride) 100 mls @ 10 mls/hr IV.CONT CONT [facility] Insulin Aspart (Novolog Insulin Correctional Sugar Inj) 0 unit SQ ACHS [facility]; Protocol Last Admin: 05/23/18 12:26 Dose: Not Given Lisinopril (Prinivil) 2.5 mg PO DAILY [facility] Metoprolol Tartrate (Lopressor) 12.5 mg PO BID [facility] Last Admin: 05/23/18 08:45 Dose: 12.5 mg Miscellaneous (Pill Splitter) 1 each OTHER DAILY [facility] Last Admin: 05/23/18 09:39 Dose: Not Given Potassium Chloride (Kcl) 10 meq PO BID [facility] Last Admin: 05/23/18 08:44 Dose: 10 meq Sodium Chloride (Ns Flush) 2 ml IV.FLUSH UNSCH PRN PRN Reason: FLUSH AFTER USING IV ACCESS Sodium Chloride (Ns Flush) 2 ml IV.FLUSH BID [facility] Last Admin: 05/23/18 08:47 Dose: Not Given Sodium Chloride (Ns Flush) 2 ml IV.FLUSH UNSCH PRN PRN Reason: FLUSH AFTER USING IV ACCESS <Carol Jaime - Last Filed: 05/23/18 17:05> Allergies Allergy/AdvReac Type Severity Reaction Status Date / Time rosuvastatin AdvReac Mild CRAMPS Verified 05/22/18 10:20 Home Medications Medication Instructions Recorded Confirmed Type albuterol sulfate 2.5 mg INHALATION QID 05/22/18 05/22/18 History amlodipine 5 mg PO DAILY 05/22/18 05/22/18 History aspirin [Aspirin Low Dose] 81 mg PO DAILY 05/22/18 05/22/18 History budesonide-formoterol 2 puff INHALATION BID 05/22/18 05/22/18 History diclofenac sodium 4 g TOPICAL QID 05/22/18 05/22/18 History enalapril maleate 10 mg PO DAILY 05/22/18 05/22/18 History finasteride 5 mg PO DAILY 05/22/18 05/22/18 History metformin 500 mg PO BID 05/22/18 05/22/18 History cnstovht-qkrthkkm-fhqkznh fum 9 mg PO DAILY 05/22/18 05/22/18 History [Multi Vitamin] pravastatin 40 mg PO DAILY 05/22/18 05/22/18 History terazosin 10 mg PO DAILY 05/22/18 05/22/18 History Exam Vital signs: Vital Signs 05/22/18 16:30 05/22/18 18:00 05/22/18 20:00 Temperature 97.6 F 98.2 F Pulse Rate 52 L 54 L Respiratory Rate 20 18 Blood Pressure 168/74 H 134/64 Pulse Oximetry 98 98 05/23/18 00:00 05/23/18 04:00 05/23/18 07:48 Temperature 97.8 F 97.8 F Pulse Rate 56 L 61 Respiratory Rate 18 18 Blood Pressure 101/55 L 138/61 Pulse Oximetry 98 97 97 05/23/18 08:00 05/23/18 12:00 05/23/18 12:54 Temperature 97.2 F L 98.0 F Pulse Rate 61 51 L Respiratory Rate 20 18 Blood Pressure 155/70 H 137/70 Pulse Oximetry 97 94 L 97 05/23/18 14:55 Temperature Pulse Rate Respiratory Rate Blood Pressure Pulse Oximetry 98 Intake & Output 05/22/18 05/23/18 05/23/18 18:59 06:59 18:59 Weight 79.379 kg 78.9 kg Other: # Voids 5 Date of Last Bowel Movement 05/22/18 - Constitutional no acute distress - Routine HEENT Exam Head: Present: normocephalic, atraumatic - Routine Respiratory Exam Absent: accessory muscle use - Routine Abdominal Exam Present: soft, normoactive bowel sounds. Absent: tenderness, distended - Routine Skin Exam Present: dry, warm - Routine Neurological Exam Present: alert, oriented X3 <Bernadette Colin - Last Filed: 05/23/18 16:24> Vital signs: Vital Signs 05/22/18 18:00 05/22/18 20:00 05/23/18 00:00 Temperature 97.6 F 98.2 F 97.8 F Pulse Rate 52 L 54 L 56 L Respiratory Rate 20 18 18 Blood Pressure 168/74 H 134/64 101/55 L Pulse Oximetry 98 98 05/23/18 04:00 05/23/18 07:48 05/23/18 08:00 Temperature 97.8 F 97.2 F L Pulse Rate 61 61 Respiratory Rate 18 20 Blood Pressure 138/61 155/70 H Pulse Oximetry 97 97 97 05/23/18 12:00 05/23/18 12:54 05/23/18 14:55 Temperature 98.0 F Pulse Rate 51 L Respiratory Rate 18 Blood Pressure 137/70 Pulse Oximetry 94 L 97 98 Intake & Output 05/22/18 05/23/18 05/23/18 18:59 06:59 18:59 Weight 79.379 kg 78.9 kg Other: # Voids 5 Date of Last Bowel Movement 05/22/18 <Carol Jaime - Last Filed: 05/23/18 17:05> Results - Labs CBC & Chem 7: 05/23/18 05:59 05/22/18 10:20 Labs: Laboratory Results - last 24 hr 05/22/18 05/22/18 05/22/18 16:17 16:58 18:35 WBC 5.7 RBC 3.20 L Hgb 8.6 L Hct 25.8 L MCV 80.6 MCH 26.8 L MCHC 33.2 RDW 14.7 Plt Count 222 MPV 8.4 PT 11.0 INR 1.1 APTT 27.8 POC Glucose 96 Troponin I 05/22/18 05/22/18 05/22/18 21:13 21:21 21:21 WBC RBC Hgb Hct MCV MCH MCHC RDW Plt Count MPV PT INR APTT 51.3 H D POC Glucose 240 H Troponin I 0.05 05/23/18 05/23/18 05/23/18 05:59 06:10 07:22 WBC 6.5 RBC 3.21 L Hgb 8.6 L Hct 25.8 L MCV 80.2 MCH 26.9 L MCHC 33.5 RDW 14.3 Plt Count 236 MPV 9.6 PT INR APTT 39.0 H D POC Glucose 95 Troponin I 05/23/18 11:56 WBC RBC Hgb Hct MCV MCH MCHC RDW Plt Count MPV PT INR APTT POC Glucose 98 Troponin I <Bernadette Colin - Last Filed: 05/23/18 16:24> - Labs CBC & Chem 7: 05/23/18 05:59 05/22/18 10:20 Labs: Laboratory Results - last 24 hr 05/22/18 05/22/18 05/22/18 16:58 18:35 21:13 WBC 5.7 RBC 3.20 L Hgb 8.6 L Hct 25.8 L MCV 80.6 MCH 26.8 L MCHC 33.2 RDW 14.7 Plt Count 222 MPV 8.4 APTT POC Glucose 96 240 H Troponin I 05/22/18 05/22/18 05/23/18 21:21 21:21 05:59 WBC 6.5 RBC 3.21 L Hgb 8.6 L Hct 25.8 L MCV 80.2 MCH 26.9 L MCHC 33.5 RDW 14.3 Plt Count 236 MPV 9.6 APTT 51.3 H D POC Glucose Troponin I 0.05 05/23/18 05/23/18 05/23/18 06:10 07:22 11:56 WBC RBC Hgb Hct MCV MCH MCHC RDW Plt Count MPV APTT 39.0 H D POC Glucose 95 98 Troponin I <Carol Jaime - Last Filed: 05/23/18 17:05> Assessment and Plan - Plan Assessment: - Anemia/reports of black, tarry stools/ chest pain with negative cardiac work up Chest pain initially began last week after doing some vigorous manual work outside, it did seem to subside after rest. States he noticed the pain again on Saturday after eating a burrito from [employer] and a 20 oz drink, states the pain radiated across his entire chest and into his shoulders. [place] like his food just did settle in his stomach. Tried drinking Mayela Bessie to see if it would help him burp and get some relief, however this did not improve symptoms. Denies nausea , vomiting, abdominal pain. Pt reports he has been having black, "sticky" stools for one month. Has not told his PCP about this. Takes a baby ASA daily. 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 Reports rare ETOH, quit smoking 30 years ago. Pt has undergone cardiac work up including cardiac catheterization today which was negative. Has never had EGD. Last colonoscopy 2 1/2 years ago by DC states 2 polyps. Plan: EGD tomorrow Obtain consent NPO after MN DC Heparin gtt after MN (may already be discontinued due to clean cath- will leave this to cardiology) Monitor H/H Transfuse as needed Protonix gtt Further recommendations to follow Pt has been seen and examined by myself and Dr. Jaime and this note is written on his behalf <Bernadette Colin - Last Filed: 05/23/18 16:24> - Plan Seen and examined with [facility] S[facility] SPECIALIST, admitted for cp and melena. Cardiac cath reported - ve. EGD planned for tomorrow, if -ve colonoscopy. Thank you The exam, history, and the medical decision-making described in the above note were completed with the assistance of the mid-level provider. I reviewed and agree with the findings presented. I attest that I had a [id number] encounter with the patient on the same day, and personally performed and documented my assessment and findings in the medical record. <Carol Jaime - Last Filed: 05/23/18 17:05>
--- NOTE | 2018-05-23 16:35 | MR ---
cc: Donna Chin MD DATE: 05/23/2018 INDICATION: Typical angina, non-ST elevation myocardial infarction, class IV angina, class II congestive heart failure, systolic. PROCEDURES PERFORMED: 1. Retrograde left heart catheterization with left ventriculography and selective coronary angiography. 2. Moderate sedation. ACCESS SITE: Right femoral artery. EQUIPMENT USED: A 5-Thai pigtail catheter, 5-Thai JL4 and AR modified coronary artery catheters. MEDICATIONS: Versed IV, fentanyl IV. CONTRAST USED: Omnipaque 90 mL COMPLICATIONS: None. BLOOD LOSS: Less than 10 mL METHOD OF HEMOSTASIS: Vascade closure. RESULTS: A. HEMODYNAMICS: Heart rate 53 beats per minute. Left ventricular end-diastolic pressure 7 mmHg, left ventricle 158/7, aorta 138/42/71. Peak aortic gradient 20 mmHg. B. LEFT VENTRICULOGRAPHY: The ejection fraction 40%. Wall motion moderate global hypokinesis, no mitral regurgitation. C. CORONARY ANGIOGRAPHY: The left main coronary artery has 30% stenosis in the distal portion. Left anterior descending artery has 20% ostial stenosis and 30% stenosis in the proximal portion. The mid LAD has 20% stenosis. First diagonal artery is patent. Ramus intermedius is patent. Left circumflex artery has 60% ostial stenosis. OM1 is patent. Right coronary artery is a dominant vessel with 30% stenosis in proximal portion and 30% stenosis in the mid portion. PDA patent, PLV patent. DIAGNOSES: 1. Moderate coronary artery disease with 60% ostial stenosis of the left circumflex artery. 2. Moderate left ventricular dysfunction consistent with nonischemic cardiomyopathy. 3. Mild aortic stenosis. DISPOSITION: Mr. Silverman will be monitored on telemetry after his procedure. His study reveals moderate coronary artery disease. I doubt his symptoms are of cardiac origin. GI evaluation may be appropriate as well. I recommend to continue aggressive modification of his cardiac risk factors. I also recommend therapy with a beta charlie as tolerated and ELDER inhibitor for afterload reduction. Monitor renal function after the procedure. [facility]. Donna Chin MD OQ/ct , 02:48 PM , 02:56 PM JUAN
[2018-05-23] MEDS: Pantoprazole Inj 80 MG in Sodium Chlor 0.9% Inj 100 ML IV.CONT SCH (18:13)
--- NOTE | 2018-05-23 19:10 | MB ---
cc: Ranjit Mcfarlane MD DATE: 05/23/2018 REQUESTING PHYSICIAN: Juliana Fuentes MD REASON FOR CONSULTATION: Evaluation for shortness of breath. HISTORY OF PRESENT ILLNESS: Mr. Silverman is a pleasant 78-year-old male with a history of hypertension, diabetes mellitus and possible underlying chronic obstructive pulmonary disease. He saw a shredding specialist in [place]. He was started on Azmacort and Ventolin daily. He is undergoing pulmonary rehabilitation over here. The patient is complaining of chest pain and tightness over the last 2 weeks or so, which is worse with exertion. 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 He states that he worked about 2 hours it was hot out there. He rested and pain went away. Again, he was having pain. He went to the pulmonary rehab today. After the rehab he was having chest pain and was [facility] He saw [facility] Caputo [facility] and was sent to the emergency room. The patient had a workup done in the hospital. He underwent cardiac catheterization, which shows that he has coronary disease, nonischemic cardiomyopathy. He feels his chest pain is better. Has no wheezing. No fever or chills. No night sweats. PAST MEDICAL HISTORY: Hypertension, diabetes mellitus, prostate enlargement, COPD. MEDICATIONS: He is currently takin. Aspirin 81 mg daily. 2. Lipitor 80 mg a day. 3. Symbicort 160/4.5 two puffs twice a day. 4. Lasix 40 mg IV push. 5. Heparin drip. 6. Insulin coverage. 7. Lisinopril 2.5 mg. 8. Metoprolol 12.5 mg twice a day. ALLERGIES: HE IS ALLERGIC TO CRESTOR. SOCIAL HISTORY: He is , lives alone. 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 He has a history of smoking, which he quit 50 years ago. FAMILY HISTORY: He has grown [place]. REVIEW OF SYSTEMS: Normally, he is up around and active, still works as a pastry finisher. No headache or dizziness. No malignancy. No DVT or pulmonary embolism. PHYSICAL EXAMINATION: GENERAL: Well nourished male, not in any acute distress. VITAL SIGNS: Blood pressure 137/70, heart rate 56, respiratory rate 18, temperature 98.8. HEENT: Pupils are equal and reactive to light. Oral mucosa and nasal mucosa normal. NECK: Supple. JVD not raised. CHEST: Equal bilaterally. No rhonchi. HEART: S1, S2 normal. ABDOMEN: Benign. EXTREMITIES: No edema. IMPRESSION: 1. Chest pain, status post cardiac catheterization. 2. Chronic obstructive pulmonary disease. 3. Hypertension. 4. Diabetes mellitus. 5. Benign prostatic hypertrophy. PLAN: I discussed with the patient we will give him aerosol treatments, Symbicort twice a day, supplemented oxygen. Cardiac workup is under way. Once he gets better, we will check his pulmonary function study. Monitor blood sugar. Further treatment will depend on the course in the hospital. Thank you, Dr. Juliana Fuentes for this consult. Ranjit Mcfarlane MD ADA/ct , 05:17 PM , 05:26 PM
[2018-05-24] MEDS: Pantoprazole Inj 80 MG in Sodium Chlor 0.9% Inj 100 ML IV.CONT SCH ×2 (02:34→13:11)
[2018-05-24 07:42] LABS: Hematocrit 31.5 % (39.0-51.0); Hemoglobin 10.2 gm/dL (13.0-17.0); Mean Corpuscular HGB Conc 32.4 % (32.0-36.0); Mean Corpuscular Hemoglobin 26.1 pg (27.0-34.0); Mean Corpuscular Volume 80.6 fL (80.0-100.0); Mean Platelet Volume 8.7 fL (7.0-11.0); Platelet Count 253 th/mm3 (150-450); Red Cell Distribution Width 14.5 % (11.6-17.2); White Blood Count 5.7 th/mm3 (4.0-11.0)
[2018-05-24 08:02] LABS: Calcium 8.7 mg/dL (8.5-10.1); Carbon Dioxide 29.8 meq/L (21.0-32.0); Potassium 4.1 meq/L (3.5-5.1)
[2018-05-24] MEDS: Metoprolol Tartrate 25 MG Tablet PO SCH (08:50)
[2018-05-24] MEDS: Potassium Chloride 10 MEQ ER Capsule PO SCH (08:50)
[2018-05-24] MEDS: Insulin NovoLOG Aspart Correctional Sugar Inj SQ SCH ×3 (09:00→17:12)
[2018-05-24] MEDS ORDERED: Lisinopril 5 MG Tablet PO SCH (09:00)
[2018-05-24] MEDS ORDERED: Lidocaine PF 1% Inj 5 ML Syringe OTHER ONE (09:52)
--- NOTE | 2018-05-24 10:06 | GIPROC ---
[facility] [address] [facility], [address] EGD PROCEDURE REPORT EXAM DATE: 05/24/2018 PATIENT NAME: Ismael Silverman MR #: [id number] BIRTHDATE: 1940 ATTENDING: Carol Jaime MD ORDER #: [id number] ADMINISTRATIVE INTERN: Aiyana Hubbard and Coco Bustamante STATUS: inpatient INDICATIONS: The patient is a 78 yr old male here for an EGD due to acute post hemorrhagic anemia PROCEDURE PERFORMED: EGD w/ biopsy MEDICATIONS: None and Per Anesthesia. TOPICAL ANESTHETIC: CONSENT: The patient understands the risks and benefits of the procedure and understands that these risks include, but are not limited to: sedation, allergic reaction, infection, perforation and/or bleeding. Alternative means of evaluation and treatment include, among others: physical exam, x-rays, and/or surgical intervention. The patient elects to proceed with this endoscopic procedure. medical equipment was checked for proper function. Hand hygiene and appropriate measures for infection prevention was taken. After the risks, benefits and alternatives of the procedure were thoroughly explained, Informed consent was verified, confirmed and timeout was successfully executed by the treatment team. The patient was anesthetized with topical anesthesia and the Pentax EG-[id number] endoscope was introduced through the mouth and advanced to the second portion of the duodenum. Retroflexed views revealed no abnormalities The gastroscope was then slowly withdrawn and removed. ESOPHAGUS: The mucosa of the esophagus appeared normal. STOMACH: There was mild gastritis in the gastric antrum. A biopsy was performed using cold forceps. Sample sent for histology. DUODENUM: The duodenal mucosa appeared normal in the bulb and second portion of the duodenum. ADVERSE EVENTS: There were no complications. IMPRESSIONS: 1. The esophagus appeared normal 2. There was mild gastritis in the gastric antrum; biopsy was performed 3. Normal duodenal mucosa in the bulb and second portion of the duodenum 4. Retroflexed views revealed no abnormalities RECOMMENDATIONS: 1. Await biopsy results. Biopsy results will not be ready for 7-10 days. If you don't hear from us in two weeks, call our office for biopsy results. 2. Admit to hospital 3. Continue PPI 4. Avoid NSAIDS 5. Colonoscopy PATIENT CONDITION: stable DISPOSITION: Inpatient REPEAT EXAM: Return 3 years EGD pending biopsy results Carol Jaime MD eSigned: Carol Jaime MD 05/24/2018 10:05 AM cc: PATIENT NAME: Ismael Silverman MR#: [id number]
[2018-05-24 12:42] VITALS: TEMP 98.2; O2SAT 99
--- NOTE | 2018-05-24 14:12 | P.PNPL ---
Subjective Interval history: 78 YOWM with COPD,HTN,DM with CP had cardiac cath had EGD has left shoulder discomfort Denies sob Physical Exam Vital signs: Vital Signs 05/23/18 14:55 05/23/18 16:00 05/23/18 18:35 Temperature 98.2 F Pulse Rate 53 L 53 L Respiratory Rate 18 Blood Pressure 165/67 H Pulse Oximetry 98 100 05/23/18 20:00 05/23/18 21:00 05/23/18 22:00 Temperature 98 F Pulse Rate 60 55 L 45 L Respiratory Rate 18 Blood Pressure 150/68 H Pulse Oximetry 98 05/23/18 23:00 05/24/18 00:00 05/24/18 00:01 Temperature 97.9 F Pulse Rate 48 L 46 L 46 L Respiratory Rate 18 Blood Pressure 118/46 L Pulse Oximetry 97 05/24/18 01:01 05/24/18 02:00 05/24/18 03:00 Temperature Pulse Rate 50 L 46 L 47 L Respiratory Rate Blood Pressure Pulse Oximetry 05/24/18 04:00 05/24/18 05:00 05/24/18 06:00 Temperature 98.1 F Pulse Rate 48 L 48 L 50 L Respiratory Rate 18 Blood Pressure 129/51 L Pulse Oximetry 97 05/24/18 07:00 05/24/18 08:00 05/24/18 12:00 Temperature 98.1 F 98.2 F Pulse Rate 50 L 56 L 52 L Respiratory Rate 18 18 Blood Pressure 151/64 H 122/64 Pulse Oximetry 96 99 Intake & Output 05/23/18 05/24/18 05/24/18 18:59 06:59 18:59 Intake Total 780 / 780 250 / 250 Output Total 1500 / 1500 Balance -720 / -720 250 / 250 Weight 77.5 kg Intake: IV 100 / 100 100 / 100 Protonix Inj 80 MG In NS Inj 100 / 100 100 / 100 100 ML @ 10 mls/hr IV.CONT CONT WENDY Rx#:[id number] Oral 680 / 680 Anesthesia Amount 150 / 150 Output: Urine 1500 / 1500 Stool 0 / 0 Other: Date of Last Bowel Movement 05/23/18 GENERAL: WBWn, NAD SKIN: Warm and dry. HEAD: Normocephalic. EYES: No scleral icterus. No injection or drainage. NECK: Supple, trachea midline. No JVD or lymphadenopathy. CARDIOVASCULAR: Regular rate and rhythm without murmurs, gallops, or rubs. RESPIRATORY: Breath sounds equal bilaterally. No accessory muscle use. GASTROINTESTINAL: Abdomen soft, non-tender, nondistended. MUSCULOSKELETAL: No cyanosis, or edema. BACK: Nontender without obvious deformity. No CVA tenderness. Assessment and Plan - Plan IMPRESSION: 1. Chest pain, status post cardiac catheterization. 2. Chronic obstructive pulmonary disease. 3. Hypertension. 4. Diabetes mellitus. 5. Benign prostatic hypertrophy. PLAN: Symbicort 2 puffs bid protonix 80 mg daily PFT Stable on RA
--- NOTE | 2018-05-24 16:25 | P.DS ---
Date of admission: 05/22/18 14:36 Primary care physician: UNKNOWN Brief History from admission: 78-year-old white male being admitted for chest pain. Patient was in his usual state of health until over the last 2 days when he began experience a worsening of his intermittent chest pains that he has been feeling for about a month. Says he had chest pain upon exertion, simple ambulation with precipitated. It occurred again this morning when he was doing his physical therapy session. He went over to his [place] doctor in the clinic and says he had an EKG done and was thus referred to them via 911 to the emergency department. Patient says that his chest pain worsens with exertion and subsides with rest. Says he takes Advil daily for his arthritis so he cannot tell if it really helped his pain otherwise. Denies any changes in pain with positioning. Says he also had some pain with inspiration as well. Denies any nausea vomiting fevers or chills. Says he had a stress test done at the [place] sometime within the last 3 months but does not know of the results. Says he also had an echocardiogram done at the [place] as well. He does not know to have any diagnosis of heart failure. Denies ever having cardiac stents or bypass surgery in the past. Says he has arthritis hypertension and hypercholesterolemia and diabetes. Emergency department patient was noted to be anemic with a hemoglobin of 8.7. His EKGs did show some upsloping of the ST segment. Troponin was tracely elevated at 0.04. Patient was given aspirin. Chest x-ray which I apparently reviewed shows findings suggestive of mild pulmonary edema. Social history entails that he lives alone, says he has a neighbor that checks on him or cause him quite frequently. DS: Medications - Discharge Medications Prescriptions: omeprazole 40 mg PO DAILY 30 Days #30 cap prednisone 5 mg PO DAILY PRN 20 Days #20 tab PRN Reason: Joint Pains DS: Summary Hospital Course: 78-year-old male who presented to the ER with chest pain 2 days ago underwent cardiac catheterization yesterday which showed moderate vessel disease but no occlusion to account for his chest pain. Shear Scrapman felt that this was most likely GI related. GI became involved in patient underwent an EGD this morning which showed moderate gastritis. He does have a history of taking 400 mg of ibuprofen twice daily in addition to his daily baby aspirin. He was unaware that he should be taking ibuprofen with food and often takes it on an empty stomach. He denies any significant alcohol use. He is due for a colonoscopy but this can be done as an outpatient as it is unrelated to his chest pain. He is happy to be going home and is medically stable for discharge. He should follow-up with his cottage master at the [place] and at his choice to follow-up at the [place] for a colonoscopy. I've recommended he follow up with Dr. Wing to review his gastric antrum biopsy results regarding the gastritis. I'm providing him a few pills of prednisone as an alternative to ibuprofen, which I am recommending he avoid for the next 2 weeks. Omeprazole he should take daily for the next 4 weeks. Discharging home today. - Time Spent with Patient Total time spent providing and/or coordinating discharge services: Less than 30 minutes - Quality: VTE Deep Vein Thrombosis/Pulmonary Embolism Present on Admission: No Exam Vital signs: Vital Signs 05/23/18 18:35 05/23/18 20:00 05/23/18 21:00 Temperature 98 F Pulse Rate 53 L 60 55 L Respiratory Rate 18 Blood Pressure 150/68 H Pulse Oximetry 98 05/23/18 22:00 05/23/18 23:00 05/24/18 00:00 Temperature 97.9 F Pulse Rate 45 L 48 L 46 L Respiratory Rate 18 Blood Pressure 118/46 L Pulse Oximetry 97 05/24/18 00:01 05/24/18 01:01 05/24/18 02:00 Temperature Pulse Rate 46 L 50 L 46 L Respiratory Rate Blood Pressure Pulse Oximetry 05/24/18 03:00 05/24/18 04:00 05/24/18 05:00 Temperature 98.1 F Pulse Rate 47 L 48 L 48 L Respiratory Rate 18 Blood Pressure 129/51 L Pulse Oximetry 97 05/24/18 06:00 05/24/18 07:00 05/24/18 08:00 Temperature 98.1 F Pulse Rate 50 L 50 L 48 L Respiratory Rate 18 Blood Pressure 151/64 H Pulse Oximetry 96 05/24/18 09:00 05/24/18 10:00 05/24/18 11:00 Temperature Pulse Rate 50 L 44 L 52 L Respiratory Rate Blood Pressure Pulse Oximetry 05/24/18 12:00 05/24/18 13:00 05/24/18 14:00 Temperature 98.2 F Pulse Rate 52 L 48 L 46 L Respiratory Rate 18 Blood Pressure 122/64 Pulse Oximetry 99 Intake & Output 05/23/18 05/24/18 05/24/18 18:59 06:59 18:59 Intake Total 780 / 780 250 / 250 Output Total 1500 / 1500 Balance -720 / -720 250 / 250 Weight 77.5 kg Intake: IV 100 / 100 100 / 100 Protonix Inj 80 MG In NS Inj 100 / 100 100 / 100 100 ML @ 10 mls/hr IV.CONT CONT WENDY Rx#:[id number] Oral 680 / 680 Anesthesia Amount 150 / 150 Output: Urine 1500 / 1500 Stool 0 / 0 Other: Date of Last Bowel Movement 05/23/18 Results Procedures completed during hospitalization: Cardiac catheterization 05/23/2018 EGD 05/24/2018 Pending studies at discharge: Pending at discharge 05/24/18 Surgical [PTH] Routine Labs on day of discharge: Labs from last 24 hours 05/24/18 05/24/18 05/24/18 11:44 08:59 07:09 WBC RBC Hgb Hct MCV MCH MCHC RDW Plt Count MPV APTT Sodium 140 Potassium 4.1 Chloride 104 Carbon Dioxide 29.8 Anion Gap 6 BUN 21 H Creatinine 1.41 H Estimated GFR 49 L POC Glucose 242 H 128 H Random Glucose 107 H Calcium 8.7 05/24/18 05/23/18 05/23/18 07:09 20:32 20:08 WBC 5.7 RBC 3.90 L Hgb 10.2 L Hct 31.5 L MCV 80.6 MCH 26.1 L MCHC 32.4 RDW 14.5 Plt Count 253 MPV 8.7 APTT 26.5 D Sodium Potassium Chloride Carbon Dioxide Anion Gap BUN Creatinine Estimated GFR POC Glucose 134 H Random Glucose Calcium 05/23/18 18:19 WBC RBC Hgb Hct MCV MCH MCHC RDW Plt Count MPV APTT Sodium Potassium Chloride Carbon Dioxide Anion Gap BUN Creatinine Estimated GFR POC Glucose 206 H Random Glucose Calcium - Impressions ITS Impressions Chest X-Ray 05/22/18 10:22 CONCLUSION: Cardiomegaly with probable mild pulmonary edema and basilar atelectasis. Trace pleural fluid. Discharge Plan - Discharge Disposition Patient Disposition: 01 Discharge Home - Discharge Condition Condition: Good - Discharge Order Discharge Orders: Discharge Order (Routine); Ordered 05/24/18 Ordered By: Dmitry Khan - Physicians Team Primary Care Provider: UNKNOWN, Attending Provider: Dmitry Khan Other Providers: Donna Chin MD ; Carol Jaime MD ; Ranjit Mcfarlane MD
[2018-05-24 16:45] VITALS: BP 125/60; PULSE 50
[2018-05-24] MEDS: Budesonide-Formoterol 160/4.5 MCG 6 GM Inhaler INH SCH (17:12)
== END 2018-05-24 17:15 | disposition home or self-care (01) ==
LOC: NEPE 10:10 → NEDA 14:36 → N04 17:46 → HCIS 05-23 15:34
PROVIDERS: ADMIT Family Medicine; ATTEND Family Medicine

== ENCOUNTER 2018-06-09 11:26 | Inpatient (IN) ==
[2018-06-09 12:16] LABS: Baso # (Auto) 0.1 th/mm3 (0.0-0.2); Eos # (Auto) 0.1 th/mm3 (0.0-0.4); Eos % (Auto) 1.2 % (0.0-4.0); Lymph # (Auto) 0.8 th/mm3 (1.0-4.8); Lymph % (Auto) 11.5 % (9.0-44.0); Mean Corpuscular HGB Conc 32.1 % (32.0-36.0); Mean Corpuscular Hemoglobin 26.3 pg (27.0-34.0); Mean Corpuscular Volume 81.8 fL (80.0-100.0); Mean Platelet Volume 8.7 fL (7.0-11.0); Mono # (Auto) 0.5 th/mm3 (0.0-0.9); Mono % (Auto) 6.4 % (0.0-8.0); Neut # (Auto) 5.9 th/mm3 (1.8-7.7); Neut % (Auto) 79.9 % (16.0-70.0); Platelet Count 224 th/mm3 (150-450); Red Cell Distribution Width 15.9 % (11.6-17.2); White Blood Count 7.3 th/mm3 (4.0-11.0)
[2018-06-09 12:22] LABS: Hemoglobin 5.8 gm/dL (13.0-17.0)
[2018-06-09 12:25] LABS: Activated Partial Thrombo Time 24.8 sec (24.3-30.1); INR 1.1 Ratio; Prothrombin Time 10.8 sec (9.8-11.6)
[2018-06-09] MEDS ORDERED: Pantoprazole Inj 80 MG in Sodium Chlor 0.9% Inj 35 ML IV.SIG ONE (12:29)
[2018-06-09 12:33] LABS: Alanine Aminotransferase 20 U/L (12-78); Albumin 2.7 g/dL (3.4-5.0); Anion Gap 9 meq/L (5-15); Aspartate Aminotransferase 19 U/L (15-37); Blood Urea Nitrogen 36 mg/dL (7-18); Calcium 7.7 mg/dL (8.5-10.1); Carbon Dioxide 22.2 meq/L (21.0-32.0); Chloride 108 meq/L (98-107); Glomerular Filtration Rate 48 mL/min (>89); Glucose,Random 139 mg/dL (74-106); Potassium 4.6 meq/L (3.5-5.1); Sodium 139 meq/L (136-145)
[2018-06-09 12:37] LABS: Alkaline Phosphatase 55 U/L (45-117); Total Protein 5.8 g/dL (6.4-8.2)
--- NOTE | 2018-06-09 12:45 | XR ---
EXAM DATE: 06/09/2018 12:01 PM EDT AGE/SEX: 78 years / Male INDICATIONS: Chest pain. CLINICAL DATA: This is the patient's sequela encounter. Patient reports that signs and symptoms have been present for 3 months and indicates a pain score of 10/10. MEDICAL/SURGICAL HISTORY: None. None. COMPARISON: [facility] [place], CHEST 1V SINGLE AP, 05/22/2018. . FINDINGS: Mild diffuse interstitial prominence. Indistinct central pulmonary vascularity. Cardiac silhouette is within normal limits for portable technique. Osseous structures are intact. CONCLUSION: 1. Mild positive fluid balance. Electronically signed by: Keanu Beard MD 06/09/2018 12:44 PM EDT
[2018-06-09 12:50] LABS: Creatine Kinase 95 U/L (39-308)
[2018-06-09] MEDS ORDERED: Sodium Chlor 0.9% Inj 250 ML IV.SIG SCH (13:00)
--- NOTE | 2018-06-09 13:10 | ED ---
HPI General Chief Complaint: Chest Pain Stated Complaint: chest pain Time Seen by Provider: 06/09/18 11:36 Source: patient Mode of arrival: EMS Limitations: no limitations History of Present Illness HPI narrative: 78-year-old male presents with chest pain and shortness of breath that is been persistent since he was recently here in the hospital. He went to the [place] and they sent him here. He states he is concerned because his symptoms are still going on. He states he is also been having black stools. He denies any other concurrent complaints. He states when he was in the hospital he was told he had issues with his stomach but is been taking those medications without improvement. MD complaint: Reports chest pain STEMI Alert: No Onset (ago): day(s) Duration: intermittent Onset: during rest Pain location: Reports substernal Severity: moderate Quality: Reports tightness Pain radiation: Reports none Relieving factors: nothing Exacerbating factors: movement Treatments prior to arrival chest pain: Reports none Related Data Home Medications Medication Instructions Recorded Confirmed albuterol sulfate 2.5 mg INHALATION QID 05/22/18 06/09/18 amlodipine 5 mg PO DAILY 05/22/18 06/09/18 aspirin [Aspirin Low Dose] 81 mg PO DAILY 05/22/18 06/09/18 budesonide-formoterol 2 puff INHALATION BID 05/22/18 06/09/18 diclofenac sodium 4 g TOPICAL QID 05/22/18 06/09/18 enalapril maleate 10 mg PO DAILY 05/22/18 06/09/18 finasteride 5 mg PO DAILY 05/22/18 06/09/18 metformin 500 mg PO BID 05/22/18 06/09/18 [id number] fum 9 mg PO DAILY 05/22/18 06/09/18 [Multi Vitamin] pravastatin 40 mg PO DAILY 05/22/18 06/09/18 terazosin 10 mg PO DAILY 05/22/18 05/22/18 Previous Rx's Medication Instructions Recorded omeprazole 40 mg PO DAILY 30 Days #30 cap 05/24/18 prednisone 5 mg PO DAILY PRN 20 Days #20 tab 05/24/18 Allergies Allergy/AdvReac Type Severity Reaction Status Date / Time rosuvastatin AdvReac Mild CRAMPS Verified 06/09/18 11:41 Review of Systems ROS: all other systems reviewed are negative [facility] Medical History Medical History Diabetes (Acute) HTN (hypertension) (Acute) Hyperlipemia (Acute) Surgical History Surgical History History of tonsillectomy and adenoidectomy (Acute) Family History Family History Other Diabetes Social History Social History Substance History: No History of Abuse Second Hand Smoke Exposure: No Smoking Status: Former smoker Tobacco Type: Cigarettes How Often Do You Have a Drink Containing Alcohol: Never Recent Travel in [facility] within the Last 8 Weeks: No Recent Out of Country Travel within the Last 8 Weeks: No Immunization History Tetanus Immunization: <5 Years Exam Narrative Exam Narrative: GENERAL: 78 y/o male in no apparent distress SKIN: Focused skin assessment warm/dry. HEAD: Atraumatic. Normocephalic. EYES: Pupils equal and round. No scleral icterus. No injection or drainage. ENT: No nasal bleeding or discharge. Mucous membranes pink and moist. NECK: Trachea midline. No JVD. CARDIOVASCULAR: Regular rate and rhythm. No murmur appreciated. RESPIRATORY: No accessory muscle use. Clear to auscultation. Breath sounds equal bilaterally. GASTROINTESTINAL: Abdomen soft, non-tender, nondistended. MUSCULOSKELETAL: No obvious deformities. No clubbing. No cyanosis. NEUROLOGICAL: Awake and alert. No obvious cranial nerve deficits. Motor grossly within normal limits. Normal speech. PSYCHIATRIC: Appropriate mood and affect; insight and judgment normal. RECTAL EXAM: Performed with candy cooker helper and after permission. No external hemorrhoid or fissure, stool is dark brown Procedures Hemaprompt Stool Procedural Steps Taken: specimen placed in appropriate test area, developer placed on specimen and control areas and controls appropriately positive and negative Hemaprompt Stool Result: positive Course Reevaluation(s) Reevaluation #1: Patient with critical anemia. Placed for 2 units of blood. Patient updated and agrees to admission Consultations Consultation #1: dr reina agrees to admit Initial Documented Vital Signs Temperature 97.9 F 06/09/18 11:33 Pulse Rate 70 06/09/18 11:33 Respiratory Rate 20 06/09/18 11:33 Blood Pressure 117/54 L 06/09/18 11:33 Pulse Oximetry 96 06/09/18 11:33 Last Documented Vital Signs Temperature 97.9 F 06/09/18 11:33 Pulse Rate 66 06/09/18 12:29 Respiratory Rate 16 06/09/18 12:29 Blood Pressure 104/50 L 06/09/18 11:37 Pulse Oximetry 99 06/09/18 12:29 Medical Decision Making MDM Narrative Medical decision making narrative: Will check blood work and x-ray and reevaluate Medical Screen Exam Complete: Yes Emergency Medical Condition: Yes Differential Diagnosis Differential Diagnosis: Gastritis, atypical cardiac, CHF, anemia, renal failure Medical Records Medical records reviewed: Yes I reviewed the patient's medical records. Recent hospitalization reviewed, cardiac cath without need for new stents, EGD with mild gastritis Lab Data Result diagrams: 06/09/18 11:50 06/09/18 11:50 Lab Results 06/09/18 06/09/18 06/09/18 Range/Units 11:50 11:50 11:50 WBC 7.3 (4.0-11.0) th/mm3 RBC 2.20 L (4.50-5.90) mil/mm3 Hgb 5.8 L* (13.0-17.0) gm/dL Hct 18.0 L* (39.0-51.0) % MCV 81.8 (80.0-100.0) fL MCH 26.3 L (27.0-34.0) pg MCHC 32.1 (32.0-36.0) % RDW 15.9 (11.6-17.2) % Plt Count 224 (150-450) th/mm3 MPV 8.7 (7.0-11.0) fL Neut % (Auto) 79.9 H (16.0-70.0) % Lymph % (Auto) 11.5 (9.0-44.0) % Henry % (Auto) 6.4 (0.0-8.0) % Eos % (Auto) 1.2 (0.0-4.0) % Baso % (Auto) 1.0 (0.0-2.0) % Neut # (Auto) 5.9 (1.8-7.7) th/mm3 Lymph # (Auto) 0.8 L (1.0-4.8) th/mm3 Henry # (Auto) 0.5 (0.0-0.9) th/mm3 Eos # (Auto) 0.1 (0.0-0.4) th/mm3 Baso # (Auto) 0.1 (0.0-0.2) th/mm3 WBC Differential . Differential Comment Auto diff final PT 10.8 (9.8-11.6) sec INR 1.1 Ratio APTT 24.8 (24.3-30.1) sec Sodium 139 (136-145) meq/L Potassium 4.6 (3.5-5.1) meq/L Chloride 108 H (98-107) meq/L Carbon Dioxide 22.2 (21.0-32.0) meq/L Anion Gap 9 (5-15) meq/L BUN 36 H (7-18) mg/dL Creatinine 1.43 H (0.60-1.30) mg/dL Estimated GFR 48 L (>89) mL/min Random Glucose 139 H (74-106) mg/dL Calcium 7.7 L (8.5-10.1) mg/dL Magnesium 2.0 (1.5-2.5) mg/dL Total Bilirubin 0.2 (0.2-1.0) mg/dL AST 19 (15-37) U/L ALT 20 (12-78) U/L Alkaline Phosphatase 55 (45-117) U/L Total Creatine Kinase 95 (39-308) U/L Troponin I Less than 0.02 L (0.02-0.05) ng/mL B-Natriuretic Peptide (0-100) pg/mL Total Protein 5.8 L (6.4-8.2) g/dL Albumin 2.7 L (3.4-5.0) g/dL Blood Type Antibody Screen MTS Gel Crossmatch 06/09/18 06/09/18 06/09/18 Range/Units 11:50 12:25 12:25 WBC (4.0-11.0) th/mm3 RBC (4.50-5.90) mil/mm3 Hgb (13.0-17.0) gm/dL Hct (39.0-51.0) % MCV (80.0-100.0) fL MCH (27.0-34.0) pg MCHC (32.0-36.0) % RDW (11.6-17.2) % Plt Count (150-450) th/mm3 MPV (7.0-11.0) fL Neut % (Auto) (16.0-70.0) % Lymph % (Auto) (9.0-44.0) % Henry % (Auto) (0.0-8.0) % Eos % (Auto) (0.0-4.0) % Baso % (Auto) (0.0-2.0) % Neut # (Auto) (1.8-7.7) th/mm3 Lymph # (Auto) (1.0-4.8) th/mm3 Henry # (Auto) (0.0-0.9) th/mm3 Eos # (Auto) (0.0-0.4) th/mm3 Baso # (Auto) (0.0-0.2) th/mm3 WBC Differential Differential Comment PT (9.8-11.6) sec INR Ratio APTT (24.3-30.1) sec Sodium (136-145) meq/L Potassium (3.5-5.1) meq/L Chloride (98-107) meq/L Carbon Dioxide (21.0-32.0) meq/L Anion Gap (5-15) meq/L BUN (7-18) mg/dL Creatinine (0.60-1.30) mg/dL Estimated GFR (>89) mL/min Random Glucose (74-106) mg/dL Calcium (8.5-10.1) mg/dL Magnesium (1.5-2.5) mg/dL Total Bilirubin (0.2-1.0) mg/dL AST (15-37) U/L ALT (12-78) U/L Alkaline Phosphatase (45-117) U/L Total Creatine Kinase (39-308) U/L Troponin I (0.02-0.05) ng/mL B-Natriuretic Peptide 172 H (0-100) pg/mL Total Protein (6.4-8.2) g/dL Albumin (3.4-5.0) g/dL Blood Type O Negative Antibody Screen Negative MTS Gel Crossmatch See Detail Imaging Data Radiologist's impression: Chest X-Ray 06/09/18 12:01 CONCLUSION: 1. Mild positive fluid balance. Discharge Plan Discharge Disposition Patient Disposition: 30 Still Patient Discharge Details Diagnosis: Anemia, Chest pain, Acute GI bleeding Physicians Team ED Provider: Amaya Lemos Rxs /Orders / Referrals /Forms Prescriptions: No Action metformin 500 mg Tablet 500 mg PO BID RF: 0 enalapril maleate 10 mg Tablet 10 mg PO DAILY RF: 0 albuterol sulfate 2.5 mg /3 mL (0.083 %) Solution For Nebulization 2.5 mg INHALATION QID RF: 0 pravastatin 40 mg Tablet 40 mg PO DAILY RF: 0 amlodipine 5 mg Tablet 5 mg PO DAILY RF: 0 aspirin [Aspirin Low Dose] 81 mg Tablet,Delayed Release (Dr/Ec) 81 mg PO DAILY RF: 0 terazosin 10 mg Capsule 10 mg PO DAILY RF: 0 finasteride 5 mg Tablet 5 mg PO DAILY RF: 0 budesonide-formoterol 160-4.5 mcg/actuation Hfa Aerosol Inhaler 2 puff INHALATION BID RF: 0 diclofenac sodium 1 % Gel 4 g TOPICAL QID RF: 0 [id number] fum [Multi Vitamin] 9 mg iron/15 mL Liquid 9 mg PO DAILY RF: 0 omeprazole 40 mg Capsule,Delayed Release(Dr/Ec) 40 mg PO DAILY 30 Days Qty: 30 RF: 0 prednisone 5 mg Tablet 5 mg PO DAILY PRN (Reason: Joint Pains) 20 Days Qty: 20 RF: 0 Discharge Instructions Patient Printed Instructions: Chest Pain (ED) Status ED Status: Pending Admission
[2018-06-09] MEDS ORDERED: Bisacodyl 10 MG Supp RECTAL PRN (13:20)
[2018-06-09] MEDS: Pantoprazole Inj 80 MG in Sodium Chlor 0.9% Inj 100 ML IV.CONT SCH (13:23)
[2018-06-09] MEDS ORDERED: Acetaminophen 325 MG Tablet PO PRN (13:25)
--- NOTE | 2018-06-09 14:00 | P.HP ---
History of Present Illness Service: Hospitalist Primary Care Physician: Physician 's [facility] Chief Complaint: Shortness of breath, dizziness. History of Present Illness: Mr. Silverman is a pleasant 78-year-old male with a history of hypertension, diabetes mellitus, BPH who presents to the emergency department on 06/09/2018 due to significant shortness of breath, fatigue, dizziness as well as chest discomfort. He reports black tarry stool for the last 3 months. He denies any bright red blood in the stool. He denies any hematemesis. No significant weight loss. Denies any changes in bladder habits. She underwent EGD on 05/24/2018 which showed mild gastritis in the gastric antrum. Patient was discharged home on PPI. Patient was advised to abstain from NSAIDs. However he was taking aspirin 81 mg. On arrival, patient's hemoglobin was found to be 5.8 hematocrit 18.0. 2 units of PRBCs were ordered for transfusion. Past medical history: Diabetes, hyperlipidemia, HTN, BPH Past surgical history: No major surgeries Social history: No smoking or drinking alcohol. Family history: No Alzheimer's or Parkinson's. Oldest sister had Cancer, brothers had cancer. Inpatient Certification: I certify that the inpatient services were ordered in accordance with Medicare regulations governing the order. This includes certification that hospital inpatient services are reasonable and necessary and in the case of services not specified as inpatient-only under 42 CFR 419.22(n), that they are appropriately provided as inpatient services in accordance to with the 2-midnight benchmark under 43 CFR 412.3(e) Estimated Total Length of Stay (Days): 3 Plans for Post Hospital Care: Not yet determined Review of Systems All other systems reviewed negative except as stated in HPI PMFSH - History History Provided By: Patient - Medical History Medical History: Medical History (Last Reviewed 06/09/18 @ 13:08 by Amaya Lemos MD) Diabetes HTN (hypertension) Hyperlipemia - Surgical History Surgical History: Surgical History (Last Reviewed 06/09/18 @ 13:08 by Amaya Lemos MD) History of tonsillectomy and adenoidectomy - Family History Family History: Family History (Last Reviewed 06/09/18 @ 13:08 by Amaya Lemos MD) Other Diabetes - Tobacco History Second Hand Smoke Exposure: No Smoking Status: Former smoker Tobacco Type: Cigarettes - Alcohol History How Often Do You Have a Drink Containing Alcohol: Never - Substance Use History Substance History: No History of Abuse - Travel History Recent Travel in the [place] Within the Last 8 Weeks: No Recent Travel Out of the Country Within the Last 8 Weeks: No - Immunization History Tetanus Immunization: <5 Years Medications and Allergies Active Medications: Active Medications Acetaminophen (Tylenol) 650 mg PO Q4H PRN PRN Reason: Headache, fever, pain 1-4 Al Hydroxide/Mg Hydroxide (Milk Of Magnesia Liq) 30 ml PO Q12H PRN PRN Reason: Mild Constipation Bisacodyl (Dulcolax Supp) 10 mg RECTAL DAILY PRN PRN Reason: SEVERE CONSITIPATION Pantoprazole Sodium 80 mg/ (Sodium Chloride) 100 mls @ 10 mls/hr IV.CONT CONT WENDY Last Admin: 06/09/18 13:23 Dose: 10 mls/hr Sodium Chloride (Ns Inj) 250 mls @ 15 mls/hr IV.SIG ONCE WENDY Stop: 06/10/18 05:39 Lactulose (Lactulose Liq) 30 ml PO DAILY PRN PRN Reason: SEVERE CONSITIPATION Ondansetron HCl (Zofran Inj) 4 mg IV.PUSH Q6H PRN PRN Reason: NAUSEA OR VOMITING Sennosides (Senokot) 17.2 mg PO Q12H PRN PRN Reason: Moderate Constipation Sodium Chloride (Ns Flush) 2 ml IV.FLUSH UNSCH PRN PRN Reason: FLUSH AFTER USING IV ACCESS Allergies Allergy/AdvReac Type Severity Reaction Status Date / Time rosuvastatin AdvReac Mild CRAMPS Verified 06/09/18 11:41 Home Medications Medication Instructions Recorded Confirmed Type albuterol sulfate 2.5 mg INHALATION QID 05/22/18 06/09/18 History amlodipine 5 mg PO DAILY 05/22/18 06/09/18 History aspirin [Aspirin Low Dose] 81 mg PO DAILY 05/22/18 06/09/18 History budesonide-formoterol 2 puff INHALATION BID 05/22/18 06/09/18 History diclofenac sodium 4 g TOPICAL QID 05/22/18 06/09/18 History enalapril maleate 10 mg PO DAILY 05/22/18 06/09/18 History finasteride 5 mg PO DAILY 05/22/18 06/09/18 History metformin 500 mg PO BID 05/22/18 06/09/18 History smxfhbkj-zdbfcevo-lhzgouf fum 9 mg PO DAILY 05/22/18 06/09/18 History [Multi Vitamin] pravastatin 40 mg PO DAILY 05/22/18 06/09/18 History terazosin 10 mg PO DAILY 05/22/18 05/22/18 History Exam Vital signs: Vital Signs 06/09/18 11:33 06/09/18 11:37 06/09/18 12:29 Temperature 97.9 F Pulse Rate 70 69 66 Respiratory Rate 20 20 16 Blood Pressure 117/54 L 104/50 L Pulse Oximetry 96 97 99 Intake & Output 06/08/18 06/09/18 06/09/18 18:59 06:59 18:59 Intake Total 35 / 35 Balance 35 / 35 Weight 78.471 kg Intake: IV 35 / 35 Protonix Inj 80 MG In NS Inj 35 35 / 35 ML @ 420 mls/hr IV.SIG BOLUS ONE Rx#:[id number] Narrative: GENERAL: This is a well-nourished, well-developed patient, in no apparent distress. SKIN: No rashes, ecchymoses or lesions. Warm and dry. HEAD: Atraumatic. Normocephalic. No temporal or scalp tenderness. EYES: Pupils equal round and reactive. No injection or drainage. ENT: Nose without bleeding, purulent drainage or septal hematoma. Airway patent. NECK: Trachea midline. No lymphadenopathy. Supple, nontender, no meningeal signs. CARDIOVASCULAR: Regular rate and rhythm without murmurs, gallops, or rubs. No JVD. RESPIRATORY: Clear to auscultation. Breath sounds equal bilaterally. No wheezes , rales, or rhonchi. GASTROINTESTINAL: Abdomen soft, non-tender, nondistended. No guarding. MUSCULOSKELETAL: Extremities without clubbing, cyanosis, or edema. NEUROLOGICAL: Awake and alert. Cranial nerves II through XII intact. No focal neurological deficits. Normal speech. Results - Labs CBC & Chem 7: 06/09/18 11:50 06/09/18 11:50 Labs: Laboratory Results - last 24 hr 06/09/18 06/09/18 06/09/18 11:50 11:50 11:50 WBC 7.3 RBC 2.20 L Hgb 5.8 L* Hct 18.0 L* MCV 81.8 MCH 26.3 L MCHC 32.1 RDW 15.9 Plt Count 224 MPV 8.7 Neut % (Auto) 79.9 H Lymph % (Auto) 11.5 Perkins % (Auto) 6.4 Eos % (Auto) 1.2 Baso % (Auto) 1.0 Neut # (Auto) 5.9 Lymph # (Auto) 0.8 L Perkins # (Auto) 0.5 Eos # (Auto) 0.1 Baso # (Auto) 0.1 WBC Differential . Differential Comment Auto diff final PT 10.8 INR 1.1 APTT 24.8 Sodium 139 Potassium 4.6 Chloride 108 H Carbon Dioxide 22.2 Anion Gap 9 BUN 36 H Creatinine 1.43 H Estimated GFR 48 L Random Glucose 139 H Calcium 7.7 L Magnesium 2.0 Total Bilirubin 0.2 AST 19 ALT 20 Alkaline Phosphatase 55 Total Creatine Kinase 95 Troponin I Less than 0.02 L B-Natriuretic Peptide Total Protein 5.8 L Albumin 2.7 L Blood Type Antibody Screen MTS Gel Crossmatch Bld Prod Order Comment 06/09/18 06/09/18 06/09/18 11:50 12:25 12:25 WBC RBC Hgb Hct MCV MCH MCHC RDW Plt Count MPV Neut % (Auto) Lymph % (Auto) Perkins % (Auto) Eos % (Auto) Baso % (Auto) Neut # (Auto) Lymph # (Auto) Perkins # (Auto) Eos # (Auto) Baso # (Auto) WBC Differential Differential Comment PT INR APTT Sodium Potassium Chloride Carbon Dioxide Anion Gap BUN Creatinine Estimated GFR Random Glucose Calcium Magnesium Total Bilirubin AST ALT Alkaline Phosphatase Total Creatine Kinase Troponin I B-Natriuretic Peptide 172 H Total Protein Albumin Blood Type O Negative Antibody Screen Negative MTS Gel Crossmatch See Detail Bld Prod Order Comment - Imaging Impressions Chest X-Ray 06/09/18 12:01 CONCLUSION: 1. Mild positive fluid balance. Caprini VTE Risk Assessment Caprini VTE Risk Assessment: No/Low Risk (score <= 1) Caprini Risk Assessment Model: Point Value = 1 Point Value = 2 Point Value = 3 Point Value = 5 Age 41-60 Minor surgery BMI > 25 kg/m2 Swollen legs Varicose veins or History of unexplained or recurrent spontaneous Oral contraceptives or hormone replacement Sepsis (< 1 month) Serious lung disease, including pneumonia (< 1 month) Abnormal pulmonary function Acute myocardial infarction Congestive heart failure (< 1 month) History of inflammatory bowel disease Medical patient at bed rest Age 61-74 Arthroscopic surgery Major open surgery (> 45 min) Laparoscopic surgery (> 45 min) Malignancy Confined to bed (> 72 hours) Immobilizing plaster cast Central venous access Age >= 75 History of VTE Family history of VTE Factor V Leiden Prothrombin [id number] Lupus anticoagulant Anticardiolipin antibodies Elevated serum homocysteine Heparin-induced thrombocytopenia Other congenital or acquired thrombophilia Stroke (< 1 month) Elective arthroplasty Hip, pelvis, or leg fracture Acute spinal cord injury (< 1 month) Prophylaxis Regimen: Total Risk Factor Score Risk Level Prophylaxis Regimen 0-1 Low Early ambulation 2 Moderate Order ONE of the following: *Sequential Compression Device (SCD) *Heparin 5000 units SQ BID 3-4 Higher Order ONE of the following medications: *Heparin 5000 units SQ TID *Enoxaparin/Lovenox 40 mg SQ daily (WT < 150 kg, CrCl > 30 mL/min) *Enoxaparin/Lovenox 30 mg SQ daily (WT < 150 kg, CrCl > 10-29 mL/min) *Enoxaparin/Lovenox 30 mg SQ BID (WT < 150 kg, CrCl > 30 mL/min) AND/OR *Sequential Compression Device (SCD) 5 or more Highest Order ONE of the following medications: *Heparin 5000 units SQ TID (Preferred with Epidurals) *Enoxaparin/Lovenox 40 mg SQ daily (WT < 150 kg, CrCl > 30 mL/min) *Enoxaparin/Lovenox 30 mg SQ daily (WT < 150 kg, CrCl > 10-29 mL/min) *Enoxaparin/Lovenox 30 mg SQ BID (WT < 150 kg, CrCl > 30 mL/min) AND *Sequential Compression Device (SCD) Assessment and Plan - Plan Mr. Silverman is a pleasant 78-year-old with a history of hypertension, diabetes mellitus, BPH who presented to the emergency department due to acute worsening of dizziness, shortness of breath and some chest discomfort. He was found to have hemoglobin 5.8. Patient underwent EGD study on 05/24/2018 which showed mild gastritis. Patient was discharged on PPI. He was advised not to take any NSAIDs. Patient was taking baby aspirin. Acute GI blood loss anemia -2 units of blood products ordered for transfusion -Patient is currently on PPI drip -GI consulted for repeat EGD study. Diabetes mellitus -We will initiate sliding scale insulin. Goal blood glucose [id number] Hypertension Hyperlipidemia -currently normotensive. Continue amlodipine 5 mg daily. -Continue pravastatin BPH -continue finasteride and terazosin. Full code. Ambulation. Discharge: Possibly in the next 24-48 hours based on GI workup.
--- NOTE | 2018-06-09 16:14 | P.CONGI ---
History of Present Illness Consult date: 06/09/18 Consult reason: GI bleed with anemia, hemoglobin 5.8. May require EGD/colonoscopy Chief complaint: anemia, gi bleed History of Present Illness: Mr. Silverman is a 78-year-old male patient who presents to [facility] emergency department today with report of chest wall pain and shortness of breath. Patient states he was sent by the [facility] for evaluation. Our service has been consulted to evaluate patient's report of black tarry stools onset 3 months ago. Patient denies nausea vomiting or abdominal pain. Patient states his stools are black, tarry, and pasty. He reports being advised to stop taking ibuprofen which he did 2 weeks ago, but has been taking aspirin 81 mg p.o. daily and has been advised to stop that as well. Last EGD done on 2017 revealed the following--> 1. The esophagus appeared normal 2. There was mild gastritis in the gastric antrum; biopsy was performed 3. Normal duodenal mucosa in the bulb and second portion of the duodenum 4. Retroflexed views revealed no abnormalities Patient states he takes omeprazole 40 mg p.o. daily and denies difficulty swallowing or heartburn. Patient endorses generalized weakness with dizziness and shortness of breath since being released from [facility] 3 weeks ago. He denies any known family history of any GI disorders or diseases. States he is a non-smoker; stopped 30 years ago. Reports EtOH use is minimal "less than socially", less than 2 beers a month. Discussed p plan for EGD tomorrow, patient verbalized understanding and agreement. <nAa Levin - Last Filed: 06/09/18 15:51> History of Present Illness: seen, examined agree with above egd in am unless indicated otherwise transfuse2 more units of prbc ct chest if egd negative colonoscopy if recurrent chest pain, consider cardiology eval <Taisha Cleveland - Last Filed: 06/09/18 18:22> Review of Systems All other systems reviewed negative except as stated in HPI <Ana Levin - Last Filed: 06/09/18 15:51> PMFSH - History History Provided By: Patient - Medical History Medical History: Medical History (Last Reviewed 06/09/18 @ 13:08 by Amaya Lemos MD) Diabetes HTN (hypertension) Hyperlipemia - Surgical History Surgical History: Surgical History (Last Reviewed 06/09/18 @ 13:08 by Amaya Lemos MD) History of tonsillectomy and adenoidectomy - Family History Family History: Family History (Last Reviewed 06/09/18 @ 13:08 by Amaya Lemos MD) Other Diabetes - Tobacco History Second Hand Smoke Exposure: No Smoking Status: Former smoker Tobacco Type: Cigarettes - Alcohol History How Often Do You Have a Drink Containing Alcohol: Never - Substance Use History Substance History: No History of Abuse - Travel History Recent Travel in the [place] Within the Last 8 Weeks: No Recent Travel Out of the Country Within the Last 8 Weeks: No - Immunization History Tetanus Immunization: <5 Years <Ana Levin - Last Filed: 06/09/18 15:51> - Medical History Medical History: Medical History (Last Reviewed 06/09/18 @ 13:08 by Amaya Lemos MD) Diabetes HTN (hypertension) Hyperlipemia - Surgical History Surgical History: Surgical History (Last Reviewed 06/09/18 @ 13:08 by Amaya Lemos MD) History of tonsillectomy and adenoidectomy - Family History Family History: Family History (Last Reviewed 06/09/18 @ 13:08 by Amaya Lemos MD) Other Diabetes <Taisha Cleveland - Last Filed: 06/09/18 18:22> Medications and Allergies Active Medications: Active Medications Acetaminophen (Tylenol) 650 mg PO Q4H PRN PRN Reason: Headache, fever, pain 1-4 Al Hydroxide/Mg Hydroxide (Milk Of Alma Liq) 30 ml PO Q12H PRN PRN Reason: Mild Constipation Amlodipine Besylate (Norvasc) 5 mg PO DAILY WENDY Bisacodyl (Dulcolax Supp) 10 mg RECTAL DAILY PRN PRN Reason: SEVERE CONSITIPATION Budesonide/Formoterol Fumarate (Symbicort 160/4.5 Mcg Inh) 2 puff INH BID WENDY Finasteride (Proscar) 5 mg PO DAILY WENDY Pantoprazole Sodium 80 mg/ (Sodium Chloride) 100 mls @ 10 mls/hr IV.CONT CONT WENDY Last Admin: 06/09/18 13:23 Dose: 10 mls/hr Sodium Chloride (Ns Inj) 250 mls @ 15 mls/hr IV.SIG ONCE WENDY Stop: 06/10/18 05:39 Last Admin: 06/09/18 14:29 Dose: 15 mls/hr Lactulose (Lactulose Liq) 30 ml PO DAILY PRN PRN Reason: SEVERE CONSITIPATION Ondansetron HCl (Zofran Inj) 4 mg IV.PUSH Q6H PRN PRN Reason: NAUSEA OR VOMITING Pravastatin Sodium (Pravachol) 40 mg PO DAILY [facility] Sennosides (Senokot) 17.2 mg PO Q12H PRN PRN Reason: Moderate Constipation Sodium Chloride (Ns Flush) 2 ml IV.FLUSH UNSCH PRN PRN Reason: FLUSH AFTER USING IV ACCESS Terazosin HCl (Hytrin) 10 mg PO DAILY [facility] <Ana Levin - Last Filed: 06/09/18 15:51> Active Medications: Active Medications Acetaminophen (Tylenol) 650 mg PO Q4H PRN PRN Reason: Headache, fever, pain 1-4 Al Hydroxide/Mg Hydroxide (Milk Of Magnesia Liq) 30 ml PO Q12H PRN PRN Reason: Mild Constipation Amlodipine Besylate (Norvasc) 5 mg PO DAILY [facility] Bisacodyl (Dulcolax Supp) 10 mg RECTAL DAILY PRN PRN Reason: SEVERE CONSITIPATION Budesonide/Formoterol Fumarate (Symbicort 160/4.5 Mcg Inh) 2 puff INH BID [facility] Dextrose (D50w Vial) 50 ml IV.PUSH UNSCH PRN PRN Reason: PER HYPOGLYCEMIA PROTOCOL Finasteride (Proscar) 5 mg PO DAILY [facility] Glucagon (Glucagon Inj) 1 mg OTHER PRN PRN PRN Reason: for Hypoglycemia Protocol Pantoprazole Sodium 80 mg/ (Sodium Chloride) 100 mls @ 10 mls/hr IV.CONT CONT WENDY Last Admin: 06/09/18 13:23 Dose: 10 mls/hr Sodium Chloride (Ns Inj) 250 mls @ 15 mls/hr IV.SIG ONCE WENDY Stop: 06/10/18 05:39 Last Admin: 06/09/18 14:29 Dose: 15 mls/hr Insulin Aspart (Novolog Insulin Correctional Sugar Inj) 0 unit SQ ACHS WENDY; Protocol Lactulose (Lactulose Liq) 30 ml PO DAILY PRN PRN Reason: SEVERE CONSITIPATION Ondansetron HCl (Zofran Inj) 4 mg IV.PUSH Q6H PRN PRN Reason: NAUSEA OR VOMITING Pravastatin Sodium (Pravachol) 40 mg PO DAILY [facility] Sennosides (Senokot) 17.2 mg PO Q12H PRN PRN Reason: Moderate Constipation Sodium Chloride (Ns Flush) 2 ml IV.FLUSH UNSCH PRN PRN Reason: FLUSH AFTER USING IV ACCESS Terazosin HCl (Hytrin) 10 mg PO DAILY [facility] <Taisha Cleveland - Last Filed: 06/09/18 18:22> Allergies Allergy/AdvReac Type Severity Reaction Status Date / Time rosuvastatin AdvReac Mild CRAMPS Verified 06/09/18 11:41 Home Medications Medication Instructions Recorded Confirmed Type albuterol sulfate 2.5 mg INHALATION QID 05/22/18 06/09/18 History amlodipine 5 mg PO DAILY 05/22/18 06/09/18 History aspirin [Aspirin Low Dose] 81 mg PO DAILY 05/22/18 06/09/18 History budesonide-formoterol 2 puff INHALATION BID 05/22/18 06/09/18 History diclofenac sodium 4 g TOPICAL QID 05/22/18 06/09/18 History enalapril maleate 10 mg PO DAILY 05/22/18 06/09/18 History finasteride 5 mg PO DAILY 05/22/18 06/09/18 History metformin 500 mg PO BID 05/22/18 06/09/18 History babjoxyj-oswkndar-pccrcrj fum 9 mg PO DAILY 05/22/18 06/09/18 History [Multi Vitamin] pravastatin 40 mg PO DAILY 05/22/18 06/09/18 History terazosin 10 mg PO DAILY 05/22/18 05/22/18 History Exam Vital signs: Vital Signs 06/09/18 11:33 06/09/18 11:37 06/09/18 12:29 Temperature 97.9 F Pulse Rate 70 69 66 Respiratory Rate 20 20 16 Blood Pressure 117/54 L 104/50 L Pulse Oximetry 96 97 99 06/09/18 14:27 06/09/18 14:42 06/09/18 14:55 Temperature 97.3 F L 98 F 97.6 F Pulse Rate 60 59 L 54 L Respiratory Rate 22 21 20 Blood Pressure 127/58 L 116/54 L 130/60 Pulse Oximetry 98 98 99 06/09/18 14:59 06/09/18 15:14 06/09/18 15:31 Temperature 97.6 F 97.6 F 98.6 F Pulse Rate 55 L 56 L 60 Respiratory Rate 20 18 20 Blood Pressure 130/60 136/61 128/62 Pulse Oximetry 98 99 98 Intake & Output 06/08/18 06/09/18 06/09/18 18:59 06:59 18:59 Intake Total 835 / 835 Balance 835 / 835 Weight 78.471 kg Intake: IV 35 / 35 Protonix Inj 80 MG In NS Inj 35 35 / 35 ML @ 420 mls/hr IV.SIG BOLUS ONE Rx#:[id number] Intake (Blood Product) Amt 800 / 800 Rbc As-3 Leukoreduced Unit 400 / 400 [id number] Rbc As-3 Leukoreduced Unit 400 / 400 [id number] - Constitutional no acute distress - Routine HEENT Exam Head: Present: normocephalic - Routine Respiratory Exam Present: CTA bilaterally. Absent: accessory muscle use - Routine Cardiovascular Exam Present: RRR - Routine Abdominal Exam Present: soft, normoactive bowel sounds. Absent: tenderness, guarding, firm - Routine Extremities Exam Present: full ROM. Absent: edema - Routine Skin Exam Present: dry, warm - Routine Neurological Exam Present: alert, oriented X3 <Levin,Ana - Last Filed: 06/09/18 15:51> Vital signs: Vital Signs 06/09/18 11:33 06/09/18 11:37 06/09/18 12:29 Temperature 97.9 F Pulse Rate 70 69 66 Respiratory Rate 20 20 16 Blood Pressure 117/54 L 104/50 L Pulse Oximetry 96 97 99 06/09/18 14:27 06/09/18 14:42 06/09/18 14:55 Temperature 97.3 F L 98 F 97.6 F Pulse Rate 60 59 L 54 L Respiratory Rate 22 21 20 Blood Pressure 127/58 L 116/54 L 130/60 Pulse Oximetry 98 98 99 06/09/18 14:59 06/09/18 15:14 06/09/18 15:31 Temperature 97.6 F 97.6 F 98.6 F Pulse Rate 55 L 56 L 60 Respiratory Rate 20 18 20 Blood Pressure 130/60 136/61 128/62 Pulse Oximetry 98 99 98 Intake & Output 06/08/18 06/09/18 06/09/18 18:59 06:59 18:59 Intake Total 835 / 835 Balance 835 / 835 Weight 78.471 kg Intake: IV 35 / 35 Protonix Inj 80 MG In NS Inj 35 35 / 35 ML @ 420 mls/hr IV.SIG BOLUS ONE Rx#:[id number] Intake (Blood Product) Amt 800 / 800 Rbc As-3 Leukoreduced Unit 400 / 400 [id number] Rbc As-3 Leukoreduced Unit 400 / 400 [id number] <DiandanielFlorentine - Last Filed: 06/09/18 18:22> Results - Labs CBC & Chem 7: 06/09/18 11:50 06/09/18 11:50 Labs: Laboratory Results - last 24 hr 06/09/18 06/09/18 06/09/18 11:50 11:50 11:50 WBC 7.3 RBC 2.20 L Hgb 5.8 L* Hct 18.0 L* MCV 81.8 MCH 26.3 L MCHC 32.1 RDW 15.9 Plt Count 224 MPV 8.7 Neut % (Auto) 79.9 H Lymph % (Auto) 11.5 Otoe % (Auto) 6.4 Eos % (Auto) 1.2 Baso % (Auto) 1.0 Neut # (Auto) 5.9 Lymph # (Auto) 0.8 L [place] # (Auto) 0.5 Eos # (Auto) 0.1 Baso # (Auto) 0.1 WBC Differential . Differential Comment Auto diff final PT 10.8 INR 1.1 APTT 24.8 Sodium 139 Potassium 4.6 Chloride 108 H Carbon Dioxide 22.2 Anion Gap 9 BUN 36 H Creatinine 1.43 H Estimated GFR 48 L Random Glucose 139 H Calcium 7.7 L Magnesium 2.0 Total Bilirubin 0.2 AST 19 ALT 20 Alkaline Phosphatase 55 Total Creatine Kinase 95 Troponin I Less than 0.02 L B-Natriuretic Peptide Total Protein 5.8 L Albumin 2.7 L Blood Type Antibody Screen MTS Gel Crossmatch Bld Prod Order Comment 06/09/18 06/09/18 06/09/18 11:50 12:25 12:25 WBC RBC Hgb Hct MCV MCH MCHC RDW Plt Count MPV Neut % (Auto) Lymph % (Auto) Otoe % (Auto) Eos % (Auto) Baso % (Auto) Neut # (Auto) Lymph # (Auto) [place] # (Auto) Eos # (Auto) Baso # (Auto) WBC Differential Differential Comment PT INR APTT Sodium Potassium Chloride Carbon Dioxide Anion Gap BUN Creatinine Estimated GFR Random Glucose Calcium Magnesium Total Bilirubin AST ALT Alkaline Phosphatase Total Creatine Kinase Troponin I B-Natriuretic Peptide 172 H Total Protein Albumin Blood Type O Negative Antibody Screen Negative MTS Gel Crossmatch See Detail Bld Prod Order Comment - Imaging Impressions Chest X-Ray 06/09/18 12:01 CONCLUSION: 1. Mild positive fluid balance. <Ana Levin - Last Filed: 06/09/18 15:51> - Labs CBC & Chem 7: 06/09/18 16:58 06/09/18 11:50 Labs: Laboratory Results - last 24 hr 06/09/18 06/09/18 06/09/18 11:50 11:50 11:50 WBC 7.3 RBC 2.20 L Hgb 5.8 L* Hct 18.0 L* MCV 81.8 MCH 26.3 L MCHC 32.1 RDW 15.9 Plt Count 224 MPV 8.7 Neut % (Auto) 79.9 H Lymph % (Auto) 11.5 Otoe % (Auto) 6.4 Eos % (Auto) 1.2 Baso % (Auto) 1.0 Neut # (Auto) 5.9 Lymph # (Auto) 0.8 L O[place]e # (Auto) 0.5 Eos # (Auto) 0.1 Baso # (Auto) 0.1 WBC Differential . Differential Comment Auto diff final PT 10.8 INR 1.1 APTT 24.8 Sodium 139 Potassium 4.6 Chloride 108 H Carbon Dioxide 22.2 Anion Gap 9 BUN 36 H Creatinine 1.43 H Estimated GFR 48 L Random Glucose 139 H Calcium 7.7 L Magnesium 2.0 Total Bilirubin 0.2 AST 19 ALT 20 Alkaline Phosphatase 55 Total Creatine Kinase 95 Troponin I Less than 0.02 L B-Natriuretic Peptide Total Protein 5.8 L Albumin 2.7 L Blood Type Antibody Screen MTS Gel Crossmatch Bld Prod Order Comment 06/09/18 06/09/18 06/09/18 11:50 12:25 12:25 WBC RBC Hgb Hct MCV MCH MCHC RDW Plt Count MPV Neut % (Auto) Lymph % (Auto) Otoe % (Auto) Eos % (Auto) Baso % (Auto) Neut # (Auto) Lymph # (Auto) [place]toe # (Auto) Eos # (Auto) Baso # (Auto) WBC Differential Differential Comment PT INR APTT Sodium Potassium Chloride Carbon Dioxide Anion Gap BUN Creatinine Estimated GFR Random Glucose Calcium Magnesium Total Bilirubin AST ALT Alkaline Phosphatase Total Creatine Kinase Troponin I B-Natriuretic Peptide 172 H Total Protein Albumin Blood Type O Negative Antibody Screen Negative MTS Gel Crossmatch See Detail Bld Prod Order Comment 06/09/18 06/09/18 16:58 16:58 WBC RBC Hgb 7.9 L D Hct 23.6 L MCV MCH MCHC RDW Plt Count MPV Neut % (Auto) Lymph % (Auto) Otoe % (Auto) Eos % (Auto) Baso % (Auto) Neut # (Auto) Lymph # (Auto) [place]e # (Auto) Eos # (Auto) Baso # (Auto) WBC Differential Differential Comment PT INR APTT Sodium Potassium Chloride Carbon Dioxide Anion Gap BUN Creatinine Estimated GFR Random Glucose Calcium Magnesium Total Bilirubin AST ALT Alkaline Phosphatase Total Creatine Kinase Troponin I Less than 0.02 L B-Natriuretic Peptide Total Protein Albumin Blood Type Antibody Screen MTS Gel Crossmatch Bld Prod Order Comment - Imaging Impressions Chest X-Ray 06/09/18 12:01 CONCLUSION: 1. Mild positive fluid balance. <Taisha Cleveland - Last Filed: 06/09/18 18:22> Assessment and Plan (1) Anemia Status: Acute Code(s): D64.9 - Anemia, unspecified (2) Acute GI bleeding Status: Acute Code(s): K92.2 - Gastrointestinal hemorrhage, unspecified - Plan Mr. Silverman is a 78-year-old male patient who presents to [facility] emergency department today with report of chest wall pain and shortness of breath. [facility] Our service has been consulted to evaluate patient's report of black tarry stools onset 3 months ago. Patient denies nausea vomiting or abdominal pain. Patient states his stools are black, tarry, and pasty. He reports being advised to stop taking ibuprofen which he did 2 weeks ago, but has been taking aspirin 81 mg p.o. daily and has been advised to stop that as well. Last EGD done on 2017 revealed the following--> 1. The esophagus appeared normal 2. There was mild gastritis in the gastric antrum; biopsy was performed 3. Normal duodenal mucosa in the bulb and second portion of the duodenum 4. Retroflexed views revealed no abnormalities Patient states he takes Omeprazole 40 mg p.o. daily and denies difficulty swallowing or heartburn. Patient endorses generalized weakness with dizziness and shortness of breath since being released from [facility] 3 weeks ago. He denies any known family history of any GI disorders or diseases. States he is a non-smoker; stopped 30 years ago. Reports EtOH use is minimal "less than socially", less than 2 beers a month. Discussed plan for EGD tomorrow, patient verbalized understanding and agreement. GI bleed/ Black and tarry stools x 3 months Patient endorses black tarry stools for 3 months. Denies any nausea, vomiting or abdominal pain. States stools are pasty, black and tarry. Takes aspirin 81 mg p.o. daily but has been advised to stop. Of note, last EGD done on 2017 and revealed mild gastritis in the gastric antrum. Patient taking omeprazole 40 mg p.o. daily at home and now on pantoprazole drip. Discussed plan for EGD, patient verbalizes understanding and agreement. Anemia Hemoglobin 5.8 hematocrit 18, patient being transfused as needed. Has received 2 units leuko-reduced packed RBCs to this point. We will continue to follow H&H. Plan -Clear liquid diet -N.p.o. after midnight -Obtain consent for EGD -Pantoprazole drip -Avoid anticoagulants, aspirin and NSAIDs -Monitor for bleeding -Transfuse as needed -Monitor labs -Supportive care -Further recommendations to follow based on patient's status and findings This patient has been seen by myself and Dr. Cleveland to and this note is written on her behalf - Attending Attestation Dr. Cleveland <Ana Levin - Last Filed: 06/09/18 15:51> (1) Anemia Status: Acute Code(s): D64.9 - Anemia, unspecified (2) Acute GI bleeding Status: Acute Code(s): K92.2 - Gastrointestinal hemorrhage, unspecified <Taisha Cleveland - Last Filed: 06/09/18 18:22> <Ana Levin - Last Filed: 06/09/18 15:51> (1) Anemia Qualifiers: Anemia type: unspecified type Qualified Code(s): D64.9 - Anemia, unspecified <Taisha Cleveland - Last Filed: 06/09/18 18:22> (1) Anemia Qualifiers: Anemia type: unspecified type Qualified Code(s): D64.9 - Anemia, unspecified
[2018-06-09] MEDS ORDERED: Dextrose 50% in Water 50 ML Vial IV.PUSH PRN (17:08)
[2018-06-09 18:02] LABS: Hematocrit 23.6 % (39.0-51.0); Hemoglobin 7.9 gm/dL (13.0-17.0)
[2018-06-09] MEDS ORDERED: Senna/Docusate Sodium 8.6/50 MG Tablet PO SCH (21:00)
[2018-06-09] MEDS: Insulin NovoLOG Aspart Correctional Sugar Inj SQ SCH (22:12)
[2018-06-09] MEDS: Budesonide-Formoterol 160/4.5 MCG 6 GM Inhaler INH SCH (22:14)
[2018-06-10] MEDS: Pantoprazole Inj 80 MG in Sodium Chlor 0.9% Inj 100 ML IV.CONT SCH ×2 (00:02→13:32)
--- NOTE | 2018-06-10 00:56 | CT ---
EXAM DATE: 06/10/2018 12:14 AM EDT AGE/SEX: 78 years / Male INDICATIONS: Chest pain. CLINICAL DATA: This is the patient's initial encounter. Patient reports that signs and symptoms have been present for 1 day and indicates a pain score of 6/10. MEDICAL/SURGICAL HISTORY: Diabetes. Hypertension. Tonsillectomy. Adenoidectomy. RADIATION DOSE: 9.11 CTDI (mGy) COMPARISON: . TECHNIQUE: Multiple contiguous axial images were obtained through the chest without contrast. Image s were obtained in suspended respiration using multiple row detector helical technique. Using automa jesus exposure control and adjustment of the mA and/or kV according to patient size, radiation dose was kept as low as reasonably achievable to obtain optimal diagnostic quality images. DICOM format imag e data is available electronically for review and comparison. FINDINGS: There is peribronchial thickening involving the left lower lobe as well as the lingula. This may refl ect acute inflammatory process. No lobar pneumonia is seen. There are small nodules in the lower lobe likely inflammatory. The right lung is free of acute parenchymal opacity. Examination of the mediastinum demonstrates no abnormally enlarged lymph nodes by CT criteria. No axi llary or hilar abnormalities are identified. Coronary artery calcifications are present. The visualiz ed upper abdominal structures are unremarkable. CONCLUSION: 1. Peribronchial thickening in the left base which may represent active inflammatory process. No lob ar pneumonia is seen. Electronically signed by: Sathya Lake MD 06/10/2018 12:55 AM EDT
[2018-06-10 07:15] LABS: Hematocrit 29.2 % (39.0-51.0)
[2018-06-10] MEDS ORDERED: Lidocaine PF 1% Inj 5 ML Syringe OTHER ONE (08:53)
--- NOTE | 2018-06-10 09:17 | GIPROC ---
[facility] [address] [facility]. [facility], [address] EGD PROCEDURE REPORT EXAM DATE: 06/10/2018 PATIENT NAME: Ismael Silverman MR #: [id number] BIRTHDATE: 1940 ATTENDING: Taisha Cleveland MD ORDER #: [id number] DIRECTOR NON PROFIT: Sami Reyes and Janie Fulton STATUS: inpatient INDICATIONS: The patient is a 78 yr old male here for an EGD due to anemia gi bleeding PROCEDURE PERFORMED: EGD w/ control of bleeding egd with apc of avm's MEDICATIONS: None and Per Anesthesia. TOPICAL ANESTHETIC: none CONSENT: The patient understands the risks and benefits of the procedure and understands that these risks include, but are not limited to: sedation, allergic reaction, infection, perforation and/or bleeding. Alternative means of evaluation and treatment include, among others: physical exam, x-rays, and/or surgical intervention. The patient elects to proceed with this endoscopic procedure. medical equipment was checked for proper function. Hand hygiene and appropriate measures for infection prevention was taken. After the risks, benefits and alternatives of the procedure were thoroughly explained, Informed consent was verified, confirmed and timeout was successfully executed by the treatment team. The patient was anesthetized with topical anesthesia and the Pentax [id number] endoscope was introduced through the mouth and advanced to the second portion of the duodenum. Retroflexed views revealed a hiatal hernia The gastroscope was then slowly withdrawn and removed. Fresh blood in fundu and body-agressive washing done-no active bleeding few AVM's see-treated with APC-5 avm's gastritis rest normal. ADVERSE EVENTS: There were no complications. IMPRESSIONS: 1. Fresh blood in fundu and body-agressive washing done-no active bleeding few AVM's see-treated with APC-5 avm's gastritis rest normal 2. Retroflexed views revealed a hiatal hernia RECOMMENDATIONS: 1. Admit to hospital 2. Avoid NSAId's ppi Carafate 1 gm po bid cbc monitoring PATIENT CONDITION: stable DISPOSITION: Inpatient REPEAT EXAM: Return 4 weeks EGD Taisha Cleveland MD eSigned: Taisha Cleveland MD 06/10/2018 9:17 AM cc: PATIENT NAME: Ismael Silverman MR#: [id number]
[2018-06-10] MEDS: Insulin NovoLOG Aspart Correctional Sugar Inj SQ SCH ×4 (10:10→20:18)
[2018-06-10 11:58] LABS: Hematocrit 28.4 % (39.0-51.0); Hemoglobin 9.9 gm/dL (13.0-17.0)
--- NOTE | 2018-06-10 13:09 | P.PNIM ---
Subjective Interval history: Chief Complaint: Shortness of breath, dizziness. History of Present Illness: Mr. Silverman is a pleasant 78-year-old male with a history of hypertension, diabetes mellitus, BPH who presents to the emergency department on 06/09/2018 due to significant shortness of breath, fatigue, dizziness as well as chest discomfort. He reports black tarry stool for the last 3 months. He denies any bright red blood in the stool. He denies any hematemesis. No significant weight loss. Denies any changes in bladder habits. She underwent EGD on 05/24/2018 which showed mild gastritis in the gastric antrum. Patient was discharged home on PPI. Patient was advised to abstain from NSAIDs. However he was taking aspirin 81 mg. On arrival, patient's hemoglobin was found to be 5.8 hematocrit 18.0. 2 units of PRBCs were ordered for transfusion. Past medical history: Diabetes, hyperlipidemia, HTN, BPH Past surgical history: No major surgeries Social history: No smoking or drinking alcohol. Family history: No Alzheimer's or Parkinson's. Oldest sister had Cancer, brothers had cancer. 06-10 SEEN BY GI HAD EGD FOR ANEMIA DUE TO GI BLEEDING HAD EGD WITH CONTROL OF BLEEDING AND APC OF AVMS STARTED ON CARAFATE 1 GRAM BID PER GI AM LABS INCREASE ACTIVITY DC TO HOME TOMORROW IF STABLE Physical Exam Vital signs: Vital Signs 06/09/18 14:27 06/09/18 14:42 06/09/18 14:55 Temperature 97.3 F L 98 F 97.6 F Pulse Rate 60 59 L 54 L Respiratory Rate 22 21 20 Blood Pressure 127/58 L 116/54 L 130/60 Pulse Oximetry 98 98 99 06/09/18 14:59 06/09/18 15:14 06/09/18 15:31 Temperature 97.6 F 97.6 F 98.6 F Pulse Rate 55 L 56 L 60 Respiratory Rate 20 18 20 Blood Pressure 130/60 136/61 128/62 Pulse Oximetry 98 99 98 06/09/18 16:00 06/09/18 20:00 06/09/18 20:54 Temperature 97.4 F L 98.1 F 98 F Pulse Rate 55 L 54 L 54 L Respiratory Rate 18 18 20 Blood Pressure 126/60 123/60 135/85 Pulse Oximetry 98 98 100 06/09/18 21:10 06/09/18 21:11 06/10/18 00:00 Temperature 98.3 F 98 F 98.1 F Pulse Rate 55 L 53 L 56 L Respiratory Rate 18 18 18 Blood Pressure 144/63 H 135/65 136/63 Pulse Oximetry 99 99 99 06/10/18 00:05 06/10/18 00:22 06/10/18 01:01 Temperature 97.8 F 98 F 98.1 F Pulse Rate 58 L 63 57 L Respiratory Rate 18 18 18 Blood Pressure 139/61 131/60 132/60 Pulse Oximetry 97 98 96 06/10/18 01:17 06/10/18 04:00 06/10/18 08:00 Temperature 97.2 F L 97.9 F 98.0 F Pulse Rate 54 L 58 L 52 L Respiratory Rate 16 20 16 Blood Pressure 120/59 L 121/59 L 136/64 Pulse Oximetry 98 96 06/10/18 09:20 06/10/18 09:46 06/10/18 12:00 Temperature 97.7 F 96.2 F L Pulse Rate 59 L 53 L Respiratory Rate 20 20 Blood Pressure 152/67 H 153/65 H Pulse Oximetry 97 97 98 Intake & Output 06/09/18 06/10/18 06/10/18 18:59 06:59 18:59 Intake Total 835 / 835 848 / 848 300 / 300 Balance 835 / 835 848 / 848 300 / 300 Weight 78.471 kg Intake: IV 35 / 35 100 / 100 Protonix Inj 80 MG In NS Inj 100 / 100 100 ML @ 10 mls/hr IV.CONT CONT [facility] Rx#:[id number] Protonix Inj 80 MG In NS Inj 35 35 / 35 ML @ 420 mls/hr IV.SIG BOLUS ONE Rx#:[id number] NS Inj 250 ML @ 15 mls/hr IV. 0 / 0 SIG ONCE WEND[facility] Rx#:[id number] Anesthesia Amount 300 / 300 Other 30 / 30 Rbc As-3 Leukoreduced Unit 30 / 30 [id number] Intake (Blood Product) Amt 800 / 800 718 / 718 Rbc As-3 Leukoreduced Unit 400 / 400 [id number] Rbc As-3 Leukoreduced Unit 338 / 338 [id number] Rbc As-3 Leukoreduced Unit 400 / 400 [id number] Rbc As-3 Leukoreduced Unit 380 / 380 [id number] Other: Weight On Admission 77.4 kg Narrative: GENERAL: This is a well-nourished, well-developed patient, in no apparent distress. SKIN: No rashes, ecchymoses or lesions. Warm and dry. HEAD: Atraumatic. Normocephalic. No temporal or scalp tenderness. EYES: Pupils equal round and reactive. No injection or drainage. ENT: Nose without bleeding, purulent drainage or septal hematoma. Airway patent. NECK: Trachea midline. No lymphadenopathy. Supple, nontender, no meningeal signs. CARDIOVASCULAR: Regular rate and rhythm without murmurs, gallops, or rubs. No JVD. RESPIRATORY: Clear to auscultation. Breath sounds equal bilaterally. No wheezes , rales, or rhonchi. GASTROINTESTINAL: Abdomen soft, non-tender, nondistended. No guarding. MUSCULOSKELETAL: Extremities without clubbing, cyanosis, or edema. NEUROLOGICAL: Awake and alert. Cranial nerves II through XII intact. No focal neurological deficits. Normal speech. Results - Labs CBC & Chem 7: 06/10/18 11:20 06/09/18 11:50 Laboratory Results - last 24 hr 06/09/18 06/09/18 06/09/18 12:25 12:25 16:58 Hgb Hct POC Glucose Troponin I Less than 0.02 L Antibody Screen Negative MTS Gel Crossmatch See Detail Bld Prod Order Comment 06/09/18 06/09/18 06/10/18 16:58 18:23 05:47 Hgb 7.9 L D Hct 23.6 L POC Glucose Troponin I Less than 0.02 L Antibody Screen MTS Gel Crossmatch See Detail Bld Prod Order Comment 06/10/18 06/10/18 06/10/18 05:47 08:29 11:20 Hgb 10.0 L D 9.9 L Hct 29.2 L 28.4 L POC Glucose 108 Troponin I Antibody Screen MTS Gel Crossmatch Bld Prod Order Comment - Imaging Impressions Chest CT 06/10/18 00:00 CONCLUSION: 1. Peribronchial thickening in the left base which may represent active inflammatory process. No lobar pneumonia is seen. - Procedures EGD PROCEDURE REPORT EXAM DATE: 06/10/2018 PATIENT NAME: Ismael Silverman MR #: [id number] BIRTHDATE: 1940 ATTENDING: Taisha Cleveland MD ORDER #: [id number] ACTUARY: Sami Reyes and Janie Fulton STATUS: inpatient INDICATIONS: The patient is a 78 yr old male here for an EGD due to anemia gi bleeding PROCEDURE PERFORMED: EGD w/ control of bleeding egd with apc of avm's MEDICATIONS: None and Per Anesthesia. TOPICAL ANESTHETIC: none CONSENT: The patient understands the risks and benefits of the procedure and understands that these risks include, but are not limited to: sedation, allergic reaction, infection, perforation and/or bleeding. Alternative means of evaluation and treatment include, among others: physical exam, x-rays, and/or surgical intervention. The patient elects to proceed with this endoscopic procedure. medical equipment was checked for proper function. Hand hygiene and appropriate measures for infection prevention was taken. After the risks, benefits and alternatives of the procedure were thoroughly explained, Informed consent was verified, confirmed and timeout was successfully executed by the treatment team. The patient was anesthetized with topical anesthesia and the Pentax EG-[id number] endoscope was introduced through the mouth and advanced to the second portion of the duodenum. Retroflexed views revealed a hiatal hernia The gastroscope was then slowly withdrawn and removed. Fresh blood in fundu and body-agressive washing done-no active bleeding few AVM's see-treated with APC-5 avm's gastritis rest normal. ADVERSE EVENTS: There were no complications. IMPRESSIONS: 1. Fresh blood in fundu and body-agressive washing done-no active bleeding few AVM's see-treated with APC-5 avm's gastritis rest normal 2. Retroflexed views revealed a hiatal hernia RECOMMENDATIONS: 1. Admit to hospital 2. Avoid NSAId's ppi Carafate 1 gm po bid cbc monitoring PATIENT CONDITION: stable DISPOSITION: Inpatient REPEAT EXAM: Return 4 weeks EGD Taisha Cleveland MD eSigned: Taisha Cleveland MD 06/10/2018 9:17 AM Assessment and Plan - Plan Mr. Silverman is a pleasant 78-year-old with a history of hypertension, diabetes mellitus, BPH who presented to the emergency department due to acute worsening of dizziness, shortness of breath and some chest discomfort. He was found to have hemoglobin 5.8. Patient underwent EGD study on 05/24/2018 which showed mild gastritis. Patient was discharged on PPI. He was advised not to take any NSAIDs. Patient was taking baby aspirin. Acute GI blood loss anemia -2 units of blood products ordered for transfusion -Patient is currently on PPI drip -GI consulted for repeat EGD study. HAD EGD FOR ANEMIA DUE TO GI BLEEDING HAD EGD WITH CONTROL OF BLEEDING AND APC OF AVMS STARTED ON CARAFATE 1 GRAM BID PER GI Diabetes mellitus -We will initiate sliding scale insulin. Goal blood glucose [id number] Hypertension Hyperlipidemia -currently normotensive. Continue amlodipine 5 mg daily. -Continue pravastatin BPH -continue finasteride and terazosin. Full code. Ambulation. Discharge: Possibly in the next 24-48 hours based on GI workup. AM LABS Code Status: FULL CODE Discussed Condition With: RN AND PT AND CM Discharge Planning: DC TOMORROW IF OK WITH GI AND LABS STABLE
[2018-06-10] MEDS: amLODIPine 5 MG Tablet PO SCH (13:37)
[2018-06-10] MEDS: Finasteride 5 MG Tablet PO SCH (13:37)
[2018-06-10] MEDS: Budesonide-Formoterol 160/4.5 MCG 6 GM Inhaler INH SCH ×2 (13:38→21:12)
--- NOTE | 2018-06-10 16:10 | ECG ---
Date Performed: 06/09/2018 Time Performed: 12:05:42 PTAGE: 78 years EKG: Sinus rhythm LEFT BUNDLE BRANCH BLOCK Since previous tracing, no significant change noted ABNORMAL ECG PREVIOUS TRACING : 06/09/2018 11.35 DOCTOR: Jyoti Baron Interpretating Date/Time 06/10/2018 16:09:41
[2018-06-10] MEDS: Sucralfate 1 GM Tablet PO SCH (17:50)
[2018-06-11 04:33] VITALS: PULSE 56; O2SAT 97
[2018-06-11 08:18] LABS: INR 1.1 Ratio; Prothrombin Time 10.7 sec (9.8-11.6)
[2018-06-11 08:19] LABS: Baso # (Auto) 0.1 th/mm3 (0.0-0.2); Baso % (Auto) 1.2 % (0.0-2.0); Eos # (Auto) 0.4 th/mm3 (0.0-0.4); Eos % (Auto) 4.5 % (0.0-4.0); Hematocrit 31.5 % (39.0-51.0); Lymph # (Auto) 0.9 th/mm3 (1.0-4.8); Lymph % (Auto) 11.3 % (9.0-44.0); Mean Corpuscular HGB Conc 34.9 % (32.0-36.0); Mean Corpuscular Hemoglobin 28.9 pg (27.0-34.0); Mean Corpuscular Volume 82.8 fL (80.0-100.0); Mean Platelet Volume 8.8 fL (7.0-11.0); Mono # (Auto) 0.6 th/mm3 (0.0-0.9); Mono % (Auto) 7.2 % (0.0-8.0); Neut % (Auto) 75.8 % (16.0-70.0); Platelet Count 247 th/mm3 (150-450); Red Blood Count 3.81 mil/mm3 (4.50-5.90); Red Cell Distribution Width 16.5 % (11.6-17.2); White Blood Count 7.9 th/mm3 (4.0-11.0)
[2018-06-11 08:52] VITALS: BP 135/63; RESP 18; TEMP 97.2
[2018-06-11 08:56] LABS: Alanine Aminotransferase 21 U/L (12-78); Albumin 2.9 g/dL (3.4-5.0); Anion Gap 7 meq/L (5-15); Aspartate Aminotransferase 21 U/L (15-37); Blood Urea Nitrogen 25 mg/dL (7-18); Calcium 8.3 mg/dL (8.5-10.1); Carbon Dioxide 22.2 meq/L (21.0-32.0); Chloride 110 meq/L (98-107); Glomerular Filtration Rate 59 mL/min (>89); Glucose,Random 114 mg/dL (74-106); Magnesium 2.2 mg/dL (1.5-2.5); Phosphorus 3.4 mg/dL (2.5-4.9); Potassium 4.2 meq/L (3.5-5.1); Sodium 139 meq/L (136-145)
[2018-06-11] MEDS ORDERED: Multivitamin/Minerals Therapeutic Tablet PO SCH (09:00)
[2018-06-11 09:04] LABS: Alkaline Phosphatase 58 U/L (45-117); Free T4 (Free Thyroxine) 0.99 ng/dL (0.76-1.46); Total Protein 6.5 g/dL (6.4-8.2)
[2018-06-11] MEDS: amLODIPine 5 MG Tablet PO SCH (09:06)
[2018-06-11] MEDS: Finasteride 5 MG Tablet PO SCH (09:06)
[2018-06-11] MEDS: Sucralfate 1 GM Tablet PO SCH (09:07)
[2018-06-11] MEDS: Insulin NovoLOG Aspart Correctional Sugar Inj SQ SCH (09:09)
[2018-06-11] MEDS: Budesonide-Formoterol 160/4.5 MCG 6 GM Inhaler INH SCH (09:10)
--- NOTE | 2018-06-11 09:16 | P.DS ---
Date of admission: 06/09/18 13:16 Primary care physician: [facility] Attending physician on discharge: Sherrill Clark Anticipated date of discharge: 06/11/18 Brief History from admission: Mr. Silverman is a pleasant 78-year-old male with a history of hypertension, diabetes mellitus, BPH who presents to the emergency department on 06/09/2018 due to significant shortness of breath, fatigue, dizziness as well as chest discomfort. He reports black tarry stool for the last 3 months. He denies any bright red blood in the stool. He denies any hematemesis. No significant weight loss. Denies any changes in bladder habits. She underwent EGD on 05/24/2018 which showed mild gastritis in the gastric antrum. Patient was discharged home on PPI. Patient was advised to abstain from NSAIDs. However he was taking aspirin 81 mg. On arrival, patient's hemoglobin was found to be 5.8 hematocrit 18.0. 2 units of PRBCs were ordered for transfusion. Past medical history: Diabetes, hyperlipidemia, HTN, BPH Past surgical history: No major surgeries Social history: No smoking or drinking alcohol. Family history: No Alzheimer's or Parkinson's. Oldest sister had Cancer, brothers had cancer. DS: Medications - Discharge Medications Prescriptions: sucralfate 1 gm PO BIDAC #60 tab DS: Summary Hospital Course: Mr. Silverman is a pleasant 78-year-old with a history of hypertension, diabetes mellitus, BPH who presented to the emergency department due to acute worsening of dizziness, shortness of breath and some chest discomfort. He was found to have hemoglobin 5.8. Patient underwent EGD study on 05/24/2018 which showed mild gastritis. Patient was discharged on PPI. He was advised not to take any NSAIDs. Patient was taking baby aspirin. Acute GI blood loss anemia -2 units of blood products ordered for transfusion, hgb stable at 11 -GI consulted for repeat EGD study, HAD EGD FOR ANEMIA DUE TO GI BLEEDING, HAD EGD WITH CONTROL OF BLEEDING AND APC OF AVMS, STARTED ON CARAFATE 1 GRAM BID PER GI, follow out patient in 2 weeks -Gi cleared for discharge -Avoid nsaids and asa Diabetes mellitus -Accu checks with SSI, Goal blood glucose [id number] -Glucose remained stable Patient has Hypertension and Hyperlipidemia -remained normotensive. Continue amlodipine 5 mg daily. -Continue pravastatin Patient has BPH -continued finasteride and terazosin. Full code. Ambulation. - Time Spent with Patient Total time spent providing and/or coordinating discharge services: Greater than 30 minutes Exam Vital signs: Vital Signs 06/10/18 09:20 06/10/18 09:46 06/10/18 12:00 Temperature 97.7 F 96.2 F L Pulse Rate 59 L 53 L Respiratory Rate 20 20 Blood Pressure 152/67 H 153/65 H Pulse Oximetry 97 97 98 06/10/18 16:00 06/11/18 00:00 06/11/18 04:00 Temperature 98.0 F 98 F 98 F Pulse Rate 59 L 58 L 56 L Respiratory Rate 18 16 16 Blood Pressure 157/78 H 107/52 L 121/62 Pulse Oximetry 98 98 97 06/11/18 08:00 Temperature 97.2 F L Pulse Rate 56 L Respiratory Rate 18 Blood Pressure 135/63 Pulse Oximetry 97 Intake & Output 06/10/18 06/11/18 06/11/18 18:59 06:59 18:59 Intake Total 1176 / 1176 580 / 580 Output Total 1150 / 1150 480 / 480 Balance 26 / 26 100 / 100 Weight 76.7 kg Intake: IV 100 / 100 100 / 100 Protonix Inj 80 MG In NS Inj 100 / 100 100 / 100 100 ML @ 10 mls/hr IV.CONT CONT [facility] Rx#:[id number] Oral 476 / 476 480 / 480 Anesthesia Amount 600 / 600 Output: Urine 1150 / 1150 480 / 480 Urine/Stool Mix 0 / 0 Narrative: GENERAL: This is a well-nourished, well-developed patient, in no apparent distress. SKIN: No rashes, ecchymoses or lesions. Warm and dry. HEAD: Atraumatic. Normocephalic. No temporal or scalp tenderness. EYES: Pupils equal round and reactive. No injection or drainage. ENT: Nose without bleeding, purulent drainage or septal hematoma. Airway patent. NECK: Trachea midline. No lymphadenopathy. Supple, nontender, no meningeal signs. CARDIOVASCULAR: Regular rate and rhythm without murmurs, gallops, or rubs. No JVD. RESPIRATORY: Clear to auscultation. Breath sounds equal bilaterally. No wheezes , rales, or rhonchi. GASTROINTESTINAL: Abdomen soft, non-tender, nondistended. No guarding. MUSCULOSKELETAL: Extremities without clubbing, cyanosis, or edema. NEUROLOGICAL: Awake and alert. Cranial nerves II through XII intact. No focal neurological deficits. Normal speech. Results Procedures completed during hospitalization: EGD PROCEDURE REPORT EXAM DATE: 06/10/2018 PATIENT NAME: Ismael Silverman MR #: [id number] BIRTHDATE: 1940 ATTENDING: Taisha Cleveland MD ORDER #: [id number] DRILL HAND: Sami Reyes and Janie Fulton STATUS: inpatient INDICATIONS: The patient is a 78 yr old male here for an EGD due to anemia gi bleeding PROCEDURE PERFORMED: EGD w/ control of bleeding egd with apc of avm's MEDICATIONS: None and Per Anesthesia. TOPICAL ANESTHETIC: none CONSENT: The patient understands the risks and benefits of the procedure and understands that these risks include, but are not limited to: sedation, allergic reaction, infection, perforation and/or bleeding. Alternative means of evaluation and treatment include, among others: physical exam, x-rays, and/or surgical intervention. The patient elects to proceed with this endoscopic procedure. medical equipment was checked for proper function. Hand hygiene and appropriate measures for infection prevention was taken. After the risks, benefits and alternatives of the procedure were thoroughly explained, Informed consent was verified, confirmed and timeout was successfully executed by the treatment team. The patient was anesthetized with topical anesthesia and the Pentax EG-[id number] endoscope was introduced through the mouth and advanced to the second portion of the duodenum. Retroflexed views revealed a hiatal hernia The gastroscope was then slowly withdrawn and removed. Fresh blood in fundu and body-agressive washing done-no active bleeding few AVM's see-treated with APC-5 avm's gastritis rest normal. ADVERSE EVENTS: There were no complications. IMPRESSIONS: 1. Fresh blood in fundu and body-agressive washing done-no active bleeding few AVM's see-treated with APC-5 avm's gastritis rest normal 2. Retroflexed views revealed a hiatal hernia RECOMMENDATIONS: 1. Admit to hospital 2. Avoid NSAId's ppi Carafate 1 gm po bid cbc monitoring PATIENT CONDITION: stable DISPOSITION: Inpatient REPEAT EXAM: Return 4 weeks EGD Taisha Cleveland MD eSigned: Taisha Cleveland MD 06/10/2018 9:17 AM Labs on day of discharge: Labs from last 24 hours 06/11/18 06/11/18 06/11/18 08:47 07:30 07:30 WBC RBC Hgb Hct MCV MCH MCHC RDW Plt Count MPV Neut % (Auto) Lymph % (Auto) [place] % (Auto) Eos % (Auto) Baso % (Auto) Neut # (Auto) Lymph # (Auto) [place] # (Auto) Eos # (Auto) Baso # (Auto) WBC Differential Differential Comment PT INR Sodium 139 Potassium 4.2 Chloride 110 H Carbon Dioxide 22.2 Anion Gap 7 BUN 25 H Creatinine 1.19 Estimated GFR 59 L POC Glucose 111 H Random Glucose 114 H Hemoglobin A1c Pending Calcium 8.3 L Phosphorus 3.4 Magnesium 2.2 Total Bilirubin 0.5 AST 21 ALT 21 Alkaline Phosphatase 58 Total Protein 6.5 D Albumin 2.9 L TSH 2.770 Free T4 0.99 06/11/18 06/11/18 06/10/18 07:30 07:30 17:18 WBC 7.9 RBC 3.81 L Hgb 11.0 L Hct 31.5 L MCV 82.8 MCH 28.9 MCHC 34.9 RDW 16.5 Plt Count 247 MPV 8.8 Neut % (Auto) 75.8 H Lymph % (Auto) 11.3 [place] % (Auto) 7.2 Eos % (Auto) 4.5 H Baso % (Auto) 1.2 Neut # (Auto) 6.0 Lymph # (Auto) 0.9 L [place] # (Auto) 0.6 Eos # (Auto) 0.4 Baso # (Auto) 0.1 WBC Differential . Differential Comment Auto diff final PT 10.7 INR 1.1 Sodium Potassium Chloride Carbon Dioxide Anion Gap BUN Creatinine Estimated GFR POC Glucose 137 H Random Glucose Hemoglobin A1c Calcium Phosphorus Magnesium Total Bilirubin AST ALT Alkaline Phosphatase Total Protein Albumin TSH Free T4 06/10/18 11:20 WBC RBC Hgb 9.9 L Hct 28.4 L MCV MCH MCHC RDW Plt Count MPV Neut % (Auto) Lymph % (Auto) [place] % (Auto) Eos % (Auto) Baso % (Auto) Neut # (Auto) Lymph # (Auto) [place] # (Auto) Eos # (Auto) Baso # (Auto) WBC Differential Differential Comment PT INR Sodium Potassium Chloride Carbon Dioxide Anion Gap BUN Creatinine Estimated GFR POC Glucose Random Glucose Hemoglobin A1c Calcium Phosphorus Magnesium Total Bilirubin AST ALT Alkaline Phosphatase Total Protein Albumin TSH Free T4 - Impressions ITS Impressions Chest X-Ray 06/09/18 12:01 CONCLUSION: 1. Mild positive fluid balance. Chest CT 06/10/18 00:00 CONCLUSION: 1. Peribronchial thickening in the left base which may represent active inflammatory process. No lobar pneumonia is seen. Discharge Plan - Discharge Disposition Patient Disposition: Discharge Home - Discharge Condition Condition: Stable - Discharge Order Discharge Orders: Discharge Order (Routine); Ordered 06/11/18 Ordered By: Nimco Bullard - Discharge Details Anticipated Discharge Date: 06/11/18 Discharge Comment: Avoid NSAIDS, follow up with GI in 4 weeks - Physicians Team Primary Care Provider: [facility] Attending Provider: Sherrill Clark Other Providers: Taisha Cleveland MD
[2018-06-11 17:34] LABS: Hemoglobin A1c 5.8 % (4.3-6.0)
== END 2018-06-11 10:54 | disposition home or self-care (01) ==
LOC: NEPC 11:26 → NEDA 13:16 → N04 15:55
PROVIDERS: ADMIT Hospitalist; ATTEND Hospitalist
PROC: PANENDO (2018-06-10 08:53)

== ENCOUNTER 2018-08-02 01:04 | Inpatient (IN) ==
[2018-08-02 01:58] LABS: Baso # (Auto) 0.1 th/mm3 (0.0-0.2); Baso % (Auto) 0.8 % (0.0-2.0); Eos # (Auto) 0.2 th/mm3 (0.0-0.4); Eos % (Auto) 1.9 % (0.0-4.0); Hematocrit 26.3 % (39.0-51.0); Hemoglobin 8.9 gm/dL (13.0-17.0); Lymph # (Auto) 0.7 th/mm3 (1.0-4.8); Lymph % (Auto) 8.4 % (9.0-44.0); Mean Corpuscular HGB Conc 34.1 % (32.0-36.0); Mono # (Auto) 0.7 th/mm3 (0.0-0.9); Mono % (Auto) 7.9 % (0.0-8.0); Neut # (Auto) 7.1 th/mm3 (1.8-7.7); Platelet Count 193 th/mm3 (150-450); Red Cell Distribution Width 16.7 % (11.6-17.2); White Blood Count 8.8 th/mm3 (4.0-11.0)
--- NOTE | 2018-08-02 02:00 | ED ---
HPI General Chief Complaint: Respiratory Symptoms Stated Complaint: SOB Time Seen by Provider: 08/02/18 01:15 Source: patient Mode of arrival: ambulatory Limitations: no limitations History of Present Illness 78-year-old male came to the emergency room with his with history of sudden onset shortness of breath that woke him up from sleep. Patient said it started at 11:30 PM and he did not get any relief when he decided to come to the emergency room. He says currently his shortness of breath has slowly started to subside. His oxygen saturation was 93% on room air. Patient does not require oxygen at home. Patient says that he has been getting off and on chest pain for 2 weeks. Currently his chest pain is 2 out of 10. He has noticed that his chest pain gets worse upon ambulation. He describes the pain all across the anterior chest. Patient had a cardiac cath in April of this year. He has noticed mild ankle swelling as well. No long distance travel or prolonged hospitalization. No history of DVT or PE in the past Related Data Home Medications Medication Instructions Recorded Confirmed albuterol sulfate 2.5 mg INHALATION QID 05/22/18 08/02/18 amlodipine 5 mg PO DAILY 05/22/18 08/02/18 budesonide-formoterol 2 puff INHALATION BID 05/22/18 08/02/18 enalapril maleate 10 mg PO DAILY 05/22/18 08/02/18 finasteride 5 mg PO DAILY 05/22/18 08/02/18 metformin 500 mg PO BID 05/22/18 08/02/18 bftijkdu-nvdivtbb-eljjoox fum 9 mg PO DAILY 05/22/18 08/02/18 [Multi Vitamin] pravastatin 40 mg PO DAILY 05/22/18 08/02/18 terazosin 10 mg PO DAILY 05/22/18 08/02/18 aspirin [Aspirin Low Dose] 81 mg PO DAILY 08/02/18 08/02/18 Previous Rx's Medication Instructions Recorded sucralfate 1 gm PO BIDAC #60 tab 06/11/18 Allergies Allergy/AdvReac Type Severity Reaction Status Date / Time rosuvastatin AdvReac Mild CRAMPS Verified 08/02/18 01:08 Review of Systems ROS: all other systems reviewed are negative [facility] Medical History Medical History Diabetes (Acute) HTN (hypertension) (Acute) Hyperlipemia (Acute) Surgical History Surgical History History of tonsillectomy and adenoidectomy (Acute) Family History Family History Other Diabetes Social History Social History Substance History: No History of Abuse Second Hand Smoke Exposure: No Smoking Status: Former smoker Tobacco Type: Cigarettes How Often Do You Have a Drink Containing Alcohol: Never Recent Travel in [facility] within the Last 8 Weeks: No Recent Out of Country Travel within the Last 8 Weeks: No Exam Narrative Exam Narrative: GENERAL: Awake, alert, anxious, moderate distress SKIN: Focused skin assessment warm/dry. HEAD: Atraumatic. Normocephalic. EYES: Pupils equal and round. No scleral icterus. No injection or drainage. ENT: No nasal bleeding or discharge. Mucous membranes pink and moist. NECK: Trachea midline. No JVD. CARDIOVASCULAR: Regular rate and rhythm. No murmur appreciated. RESPIRATORY: No accessory muscle use. Fine crackles bibasilar, left more than the right GASTROINTESTINAL: Abdomen soft, non-tender, nondistended. Hepatic and splenic margins not palpable. MUSCULOSKELETAL: No obvious deformities. No clubbing. No cyanosis. No edema. NEUROLOGICAL: Awake and alert. No obvious cranial nerve deficits. Motor grossly within normal limits. Normal speech. PSYCHIATRIC: Appropriate mood and affect; insight and judgment normal. Procedures Hemaprompt Stool Procedural Steps Taken: specimen placed in appropriate test area, developer placed on specimen and control areas and controls appropriately positive and negative Hemaprompt Stool Result: positive Course Initial Documented Vital Signs Temperature 97.9 F 08/02/18 01:07 Pulse Rate 92 H 08/02/18 01:07 Respiratory Rate 26 H 08/02/18 01:07 Blood Pressure 108/58 L 08/02/18 01:07 Pulse Oximetry 92 L 08/02/18 01:07 Last Documented Vital Signs Temperature 97.9 F 08/02/18 01:07 Pulse Rate 74 08/02/18 02:10 Respiratory Rate 20 08/02/18 02:10 Blood Pressure 122/59 L 12/08/18 02:10 Pulse Oximetry 97 08/02/18 02:10 Critical Care Time Critical Care Time: Yes Total Critical Care Time: 30 Attestation: Aggregate critical care time was 30 minutes. Time to perform other separately billable procedures was not included in the critical care time. My time did not include minutes spent treating any other patients simultaneously or on activities that did not directly contribute to the patient's treatment. The services I provided to this patient were to treat and/or prevent clinically significant deterioration that could result in: ACS, GI bleed, blood transfusion I provided critical care services requiring my management, as noted below: Chart data review, documentation time, medication orders and management, vital sign assessments/reviewing monitor data, ordering and reviewing lab tests, ordering and interpreting/reviewing x-rays and diagnostic studies, care of the patient and discussion of the patient with the admitting physicians. Medical Decision Making MDM Narrative Medical decision making narrative: 2 AM awaiting for blood test result. I have given him a dose of IV Lasix. In my opinion patient has congestive heart failure and got nocturnal dyspnea. The cath report shows 60% blockage of circumflex. Waiting for blood test results and troponin. Patient is also given 2 baby aspirins and 1 sublingual nitro. 2:45 AM patient has urinated about 500 mL's of urine. He says that his chest pain is 0 if he is not moving around currently. His hemoglobin is 8.5. I did a Hemoccult which was positive. Based on that I have ordered Protonix bolus and drip and 1 unit of PRBC transfusion. I have explained all this plan to the patient and he is agreeable to it. Patient will require admission. Lab Data Result diagrams: 08/02/18 01:50 08/02/18 01:50 Lab Results 08/02/18 08/02/18 08/02/18 Range/Units 01:50 01:50 01:50 WBC 8.8 (4.0-11.0) th/mm3 RBC 3.20 L (4.50-5.90) mil/mm3 Hgb 8.9 L (13.0-17.0) gm/dL Hct 26.3 L (39.0-51.0) % MCV 82.0 (80.0-100.0) fL MCH 28.0 (27.0-34.0) pg MCHC 34.1 (32.0-36.0) % RDW 16.7 (11.6-17.2) % Plt Count 193 (150-450) th/mm3 MPV 9.0 (7.0-11.0) fL Neut % (Auto) 81.0 H (16.0-70.0) % Lymph % (Auto) 8.4 L (9.0-44.0) % [place] % (Auto) 7.9 (0.0-8.0) % Eos % (Auto) 1.9 (0.0-4.0) % Baso % (Auto) 0.8 (0.0-2.0) % Neut # (Auto) 7.1 (1.8-7.7) th/mm3 Lymph # (Auto) 0.7 L (1.0-4.8) th/mm3 [place] # (Auto) 0.7 (0.0-0.9) th/mm3 Eos # (Auto) 0.2 (0.0-0.4) th/mm3 Baso # (Auto) 0.1 (0.0-0.2) th/mm3 WBC Differential . Differential Comment Auto diff final Sodium 141 (136-145) meq/L Potassium 3.9 (3.5-5.1) meq/L Chloride 107 (98-107) meq/L Carbon Dioxide 23.6 (21.0-32.0) meq/L Anion Gap 10 (5-15) meq/L BUN 19 H (7-18) mg/dL Creatinine 1.32 H (0.60-1.30) mg/dL Estimated GFR 52 L (>89) mL/min Random Glucose 151 H (74-106) mg/dL Calcium 7.8 L (8.5-10.1) mg/dL Magnesium 2.0 (1.5-2.5) mg/dL Total Bilirubin 0.3 (0.2-1.0) mg/dL AST 18 (15-37) U/L ALT 19 (12-78) U/L Alkaline Phosphatase 78 (45-117) U/L Troponin I 0.04 (0.02-0.05) ng/mL B-Natriuretic Peptide 358 H (0-100) pg/mL Total Protein 6.5 (6.4-8.2) g/dL Albumin 2.7 L (3.4-5.0) g/dL Imaging Data Radiologist's impression: Chest X-Ray 08/02/18 01:27 CONCLUSION: Right lung infiltrate. ECG Data Attestation: I personally reviewed and interpreted this ECG as follows: Prior ECG tracings: available for review Interpretation: Twelve-lead EKG was reviewed by me. Normal sinus rhythm, normal axis, left bundle branch block, unchanged from May 2018. Heart rate of 82 bpm. Discharge Plan Discharge Disposition Patient Disposition: ED Admit(ED Internal Use Only) Physicians Team ED Provider: Dorina Al Primary Care Provider: UNKNOWN, Rxs /Orders / Referrals /Forms Prescriptions: No Action sucralfate 1 gram Tablet 1 gm PO BIDAC Qty: 60 RF: 0 aspirin [Aspirin Low Dose] 81 mg Tablet,Delayed Release (Dr/Ec) 81 mg PO DAILY RF: 0 metformin 500 mg Tablet 500 mg PO BID RF: 0 enalapril maleate 10 mg Tablet 10 mg PO DAILY RF: 0 albuterol sulfate 2.5 mg /3 mL (0.083 %) Solution For Nebulization 2.5 mg INHALATION QID RF: 0 pravastatin 40 mg Tablet 40 mg PO DAILY RF: 0 amlodipine 5 mg Tablet 5 mg PO DAILY RF: 0 terazosin 10 mg Capsule 10 mg PO DAILY RF: 0 finasteride 5 mg Tablet 5 mg PO DAILY RF: 0 budesonide-formoterol 160-4.5 mcg/actuation Hfa Aerosol Inhaler 2 puff INHALATION BID RF: 0 [id number]-bcmkcqfk-rycfxjb fum [Multi Vitamin] 9 mg iron/15 mL Liquid 9 mg PO DAILY RF: 0 Discharge Interventions Interventions: Vital Signs Last Done: 08/02/18 02:10 Status ED Status: With Doctor
[2018-08-02 02:27] LABS: Albumin 2.7 g/dL (3.4-5.0); Anion Gap 10 meq/L (5-15); Aspartate Aminotransferase 18 U/L (15-37); Blood Urea Nitrogen 19 mg/dL (7-18); Calcium 7.8 mg/dL (8.5-10.1); Carbon Dioxide 23.6 meq/L (21.0-32.0); Chloride 107 meq/L (98-107); Glomerular Filtration Rate 52 mL/min (>89); Glucose,Random 151 mg/dL (74-106); Potassium 3.9 meq/L (3.5-5.1); Sodium 141 meq/L (136-145)
[2018-08-02 02:32] LABS: Alanine Aminotransferase 19 U/L (12-78); Alkaline Phosphatase 78 U/L (45-117); Total Protein 6.5 g/dL (6.4-8.2); Troponin I 0.04 ng/mL (0.02-0.05)
--- NOTE | 2018-08-02 02:34 | XR ---
EXAM DATE: 08/02/2018 2:14 AM EST AGE/SEX: 78 years / Male INDICATIONS: Chest pain. CLINICAL DATA: This is the patient's initial encounter. Patient reports that signs and symptoms have been present for 1 day and indicates a pain score of 5/10. MEDICAL/SURGICAL HISTORY: Diabetes. Hypertension. Tonsillectomy. COMPARISON: [facility] [place], CHEST 1V SINGLE AP, 06/09/2018. . FINDINGS: Cardiomegaly. Degenerative changes of the spine. There are patchy infiltrates seen in the right mid t o lower lung zone. No effusions. CONCLUSION: Right lung infiltrate. Electronically signed by: Andreas Francois MD 08/02/2018 2:33 AM EST
[2018-08-02] MEDS ORDERED: Pantoprazole Inj 80 MG in Sodium Chlor 0.9% Inj 35 ML IV.SIG ONE (02:42)
[2018-08-02] MEDS ORDERED: Acetaminophen 325 MG Tablet PO ONE (02:42)
[2018-08-02] MEDS ORDERED: Morphine Inj 4 MG/ML Vial IV.PUSH PRN (02:52)
[2018-08-02] MEDS ORDERED: Dextrose 50% in Water 50 ML Vial IV.PUSH PRN (02:52)
[2018-08-02] MEDS ORDERED: Acetaminophen 325 MG Tablet PO PRN (02:53)
[2018-08-02] MEDS ORDERED: Bisacodyl 10 MG Supp RECTAL PRN (02:53)
[2018-08-02] MEDS ORDERED: Sodium Chlor 0.9% Inj 250 ML IV.SIG SCH (03:00)
[2018-08-02] MEDS ORDERED: Pantoprazole Inj 80 MG in Sodium Chlor 0.9% Inj 100 ML IV.CONT SCH (03:00)
--- NOTE | 2018-08-02 03:56 | P.HPIM ---
History of Present Illness Primary Care Physician: UNKNOWN History of Present Illness: This is a 78-year-old male with PMH of HTN, Hyperlipidemia, CHF (Cath 05/23/18 w / EF 40%), h/o GI Bleed, COPD and DM who presented to the ER w/ c/o chest pain starting acutely this evening. Pt also notes associated SOB/wheezing x2 wks w/ intermittent complaints of chest pain. Follows w/ Dr. Chin, previous admit for NSTEMI s/p Cath by Dr. Chin w/ moderate CAD, 60% stenosis Left Cx , no stent placement. Also eval by GI during that admission for hemorrhagic anemia, s/p EGD 05/24/18 w/ mild gastritis, normal duodenal mucosa. Admitted again 06/09-06/11/18 for c/o chest pain, noted to have significant anemia w/ GI Bleed, s/p EGD 06/10/[address] [place] w/ few AVMs w/ APC. Pt does note brown/ dark stool x1 month, on ASA at home. On arrival, BP 108/58, HR 92, O2 sat 92% on RA, Afebrile. Hemoglobin 8.9, previously 11 on 06/11/2018. Creatinine 1.32 , previously 1.19 on 06/11/2018. Troponin 0 0.04.. BNP 358. CXR with right lung infiltrate. Hemoccult + on exam. Currently on Protonix gtt. S/p Lasix 40mg IV. Currently chest pain free. - Diagnosis (1) CHF (congestive heart failure) (2) GI bleed (3) COPD (chronic obstructive pulmonary disease) (4) DM (diabetes mellitus) (5) Chest pain Inpatient Certification: I certify that the inpatient services were ordered in accordance with Medicare regulations governing the order. This includes certification that hospital inpatient services are reasonable and necessary and in the case of services not specified as inpatient-only under 42 CFR 419.22(n), that they are appropriately provided as inpatient services in accordance to with the 2-midnight benchmark under 43 CFR 412.3(e) Estimated Total Length of Stay (Days): 2 Plans for Post Hospital Care: Not yet determined Review of Systems PAST FAMILY HISTORY: Reviewed. No h/o DM or CAD All other systems reviewed negative except as stated [facility] - History History Provided By: Medical Record - Medical History Medical History: Medical History (Last Reviewed 08/02/18 @ 01:58 by Dorina Al MD) Diabetes HTN (hypertension) Hyperlipemia - Surgical History Surgical History: Surgical History (Last Reviewed 08/02/18 @ 01:58 by Dorina Al MD) History of tonsillectomy and adenoidectomy - Family History Family History: Family History (Last Reviewed 08/02/18 @ 01:58 by Dorina Al MD) Other Diabetes - Tobacco History Second Hand Smoke Exposure: No Smoking Status: Former smoker Tobacco Type: Cigarettes - Alcohol History How Often Do You Have a Drink Containing Alcohol: Never - Substance Use History Substance History: No History of Abuse - Travel History Recent Travel in the [place] Within the Last 8 Weeks: No Recent Travel Out of the Country Within the Last 8 Weeks: No - Immunization History Tetanus Immunization: <5 Years Medications and Allergies Active Medications: Active Medications Acetaminophen (Tylenol) 650 mg PO Q4H PRN PRN Reason: Temp > 100.4 Al Hydroxide/Mg Hydroxide (Milk Of Magnesia Liq) 30 ml PO Q12H PRN PRN Reason: Mild Constipation Albuterol (Duoneb Neb (Prn)) 1 ampul NEB Q4HR NEB PRN PRN Reason: SOB/WHEEZING Aspirin (Aspirin Chew) 162 mg PO DAILY WENDY Bisacodyl (Dulcolax Supp) 10 mg RECTAL DAILY PRN PRN Reason: SEVERE CONSITIPATION Budesonide/Formoterol Fumarate (Symbicort 160/4.5 Mcg Inh) 2 puff INH BID WENDY Dextrose (D50w Vial) 50 ml IV.PUSH UNSCH PRN PRN Reason: PER HYPOGLYCEMIA PROTOCOL Finasteride (Proscar) 5 mg PO DAILY WENDY Glucagon (Glucagon Inj) 1 mg OTHER PRN PRN PRN Reason: for Hypoglycemia Protocol Pantoprazole Sodium 80 mg/ (Sodium Chloride) 100 mls @ 10 mls/hr IV.CONT CONT WENDY Sodium Chloride (Ns Inj) 250 mls @ 15 mls/hr IV.SIG ONCE WENDY Stop: 08/02/18 19:39 Insulin Aspart (Novolog Insulin Correctional Sugar Inj) 0 unit SQ ACHS WENDY; Protocol Lactulose (Lactulose Liq) 30 ml PO DAILY PRN PRN Reason: SEVERE CONSITIPATION Morphine Sulfate (Morphine Inj) 2 mg IV.PUSH Q4H PRN PRN Reason: PAIN 6-10 Ondansetron HCl (Zofran Inj) 4 mg IV.PUSH Q6H PRN PRN Reason: NAUSEA OR VOMITING Pravastatin Sodium (Pravachol) 40 mg PO DAILY [facility] Senna/Docusate Sodium ([place]-Colace) 1 tab PO BID [facility] Sennosides (Senokot) 17.2 mg PO Q12H PRN PRN Reason: Moderate Constipation Sodium Chloride (Ns Flush) 2 ml IV.FLUSH BID [facility] Sodium Chloride (Ns Flush) 2 ml IV.FLUSH PRN PRN PRN Reason: FLUSH AFTER USING IV ACCESS Terazosin HCl (Hytrin) 10 mg PO DAILY [facility] Allergies Allergy/AdvReac Type Severity Reaction Status Date / Time rosuvastatin AdvReac Mild CRAMPS Verified 08/02/18 01:08 Home Medications Medication Instructions Recorded Confirmed Type albuterol sulfate 2.5 mg INHALATION QID 05/22/18 08/02/18 History amlodipine 5 mg PO DAILY 05/22/18 08/02/18 History budesonide-formoterol 2 puff INHALATION BID 05/22/18 08/02/18 History enalapril maleate 10 mg PO DAILY 05/22/18 08/02/18 History finasteride 5 mg PO DAILY 05/22/18 08/02/18 History metformin 500 mg PO BID 05/22/18 08/02/18 History fcqdqtwl-pbdntzop-upeyiuo fum 9 mg PO DAILY 05/22/18 08/02/18 History [Multi Vitamin] pravastatin 40 mg PO DAILY 05/22/18 08/02/18 History terazosin 10 mg PO DAILY 05/22/18 08/02/18 History aspirin [Aspirin Low Dose] 81 mg PO DAILY 08/02/18 08/02/18 History Exam Vital signs: Vital Signs 08/02/18 01:07 08/02/18 01:15 08/02/18 01:27 Temperature 97.9 F Pulse Rate 92 H 84 Respiratory Rate 26 H 24 Blood Pressure 108/58 L 151/67 H Pulse Oximetry 92 L 93 L 96 08/02/18 01:30 08/02/18 01:50 08/02/18 02:00 Temperature Pulse Rate 79 74 75 Respiratory Rate 22 20 23 Blood Pressure 143/63 H 125/58 L 121/59 L Pulse Oximetry 98 97 96 08/02/18 02:10 Temperature Pulse Rate 74 Respiratory Rate 20 Blood Pressure 122/59 L Pulse Oximetry 97 Intake & Output 08/01/18 08/01/18 08/02/18 06:59 18:59 06:59 Intake Total 35 / 35 Balance 35 / 35 Weight 78.018 kg Intake: IV 35 / 35 Protonix Inj 80 MG In NS Inj 35 35 / 35 ML @ 420 mls/hr IV.SIG BOLUS ONE Rx#:[id number] Narrative: PE: GENERAL: Very pleasant elderly white male in no acute distress. SKIN: Focused skin assessment warm and dry. HEENT: PERRLA, EOMI. No scleral icterus or conjunctival pallor. No lid lag or facial droop. CARDIOVASCULAR: Regular rate and rhythm. No obvious murmurs to auscultation. No chest tenderness to palpation. RESPIRATORY: No obvious rhonchi or wheezing. Clear to auscultation. Breath sounds equal bilaterally. GASTROINTESTINAL: Abdomen soft, non-tender, nondistended. BS normal. MUSCULOSKELETAL: Extremities without clubbing, cyanosis. 2+ edema, right>left. No obvious deformities. NEUROLOGICAL: Awake, alert and oriented x4. No focal neurologic deficits. Moving both upper and lower extremities spontaneously. PSYCHIATRIC: Appropriate mood and affect. Insight and judgment normal. Results - Labs CBC & Chem 7: 08/02/18 01:50 08/02/18 01:50 Labs: Short CBC 08/02/18 Range/Units 01:50 WBC 8.8 (4.0-11.0) th/mm3 Hgb 8.9 L (13.0-17.0) gm/dL Hct 26.3 L (39.0-51.0) % Plt Count 193 (150-450) th/mm3 BMP 08/02/18 01:50 Sodium 141 Potassium 3.9 Chloride 107 Carbon Dioxide 23.6 BUN 19 H Creatinine 1.32 H Calcium 7.8 L Cardiac Enzymes 08/02/18 Range/Units 01:50 Troponin I 0.04 (0.02-0.05) ng/mL Liver Function 08/02/18 Range/Units 01:50 Total Bilirubin 0.3 (0.2-1.0) mg/dL AST 18 (15-37) U/L ALT 19 (12-78) U/L Alkaline Phosphatase 78 (45-117) U/L Albumin 2.7 L (3.4-5.0) g/dL - Imaging Impressions Chest X-Ray 08/02/18 01:27 CONCLUSION: Right lung infiltrate. Caprini VTE Risk Assessment Caprini VTE Risk Assessment: No/Low Risk (score <= 1) VTE Pharmacological Exception Reason: Active bleeding Caprini Risk Assessment Model: Point Value = 1 Point Value = 2 Point Value = 3 Point Value = 5 Age 41-60 Minor surgery BMI > 25 kg/m2 Swollen legs Varicose veins or History of unexplained or recurrent spontaneous Oral contraceptives or hormone replacement Sepsis (< 1 month) Serious lung disease, including pneumonia (< 1 month) Abnormal pulmonary function Acute myocardial infarction Congestive heart failure (< 1 month) History of inflammatory bowel disease Medical patient at bed rest Age 61-74 Arthroscopic surgery Major open surgery (> 45 min) Laparoscopic surgery (> 45 min) Malignancy Confined to bed (> 72 hours) Immobilizing plaster cast Central venous access Age >= 75 History of VTE Family history of VTE Factor V Leiden Prothrombin [id number] Lupus anticoagulant Anticardiolipin antibodies Elevated serum homocysteine Heparin-induced thrombocytopenia Other congenital or acquired thrombophilia Stroke (< 1 month) Elective arthroplasty Hip, pelvis, or leg fracture Acute spinal cord injury (< 1 month) Prophylaxis Regimen: Total Risk Factor Score Risk Level Prophylaxis Regimen 0-1 Low Early ambulation 2 Moderate Order ONE of the following: *Sequential Compression Device (SCD) *Heparin 5000 units SQ BID 3-4 Higher Order ONE of the following medications: *Heparin 5000 units SQ TID *Enoxaparin/Lovenox 40 mg SQ daily (WT < 150 kg, CrCl > 30 mL/min) *Enoxaparin/Lovenox 30 mg SQ daily (WT < 150 kg, CrCl > 10-29 mL/min) *Enoxaparin/Lovenox 30 mg SQ BID (WT < 150 kg, CrCl > 30 mL/min) AND/OR *Sequential Compression Device (SCD) 5 or more Highest Order ONE of the following medications: *Heparin 5000 units SQ TID (Preferred with Epidurals) *Enoxaparin/Lovenox 40 mg SQ daily (WT < 150 kg, CrCl > 30 mL/min) *Enoxaparin/Lovenox 30 mg SQ daily (WT < 150 kg, CrCl > 10-29 mL/min) *Enoxaparin/Lovenox 30 mg SQ BID (WT < 150 kg, CrCl > 30 mL/min) AND *Sequential Compression Device (SCD) Assessment and Plan - Assessment (1) CHF (congestive heart failure) Code(s): I50.9 - Heart failure, unspecified Status: Acute (2) GI bleed Code(s): K92.2 - Gastrointestinal hemorrhage, unspecified Status: Acute (3) COPD (chronic obstructive pulmonary disease) Code(s): J44.9 - Chronic obstructive pulmonary disease, unspecified Status: Acute (4) DM (diabetes mellitus) Code(s): E11.9 - Type 2 diabetes mellitus without complications Status: Acute (5) Chest pain Code(s): R07.9 - Chest pain, unspecified Status: Acute - Plan A/P: 1. Chest Pain: acute onset of substernal chest pain, h/o CAD, Cath 05/23/18 w/ moderate CAD, 60% stenosis Left Cx, no stent placement. Initial trop 0.04, check serial cardiac enzymes for trend, telemetry, follows w/ Dr. Chin, consult as needed. Hold ASA in light of active GI Bleed. 2. CHF: Acute on Chronic. Systolic. EF 40% per Cath 05/23/18, +lower extremity edema, CXR w/ right lung infiltrate, however appears to be more congestion, afebrile, no leukocytosis, no cough. S/p Lasix 40mg IV, continue diuresis-caution w/ renal function, monitor I/O, resume home medications. 3. COPD: Chronic Respiratory Failure w/ Acute Exacerbation. Moderate. + wheezing/SOB, now improved, DuoNeb prn, Symbicort, Mucinex. 4. GI Bleed: Recurrent, h/o GI Bleed in the past s/p EGD 05/24/18 w/ mild gastritis and EGD 06/10/18 w/ few AVMs, +dark stool x1 month, on ASA at home, Hemoccult +, Hgb w/ significant drop from 11.0 on 06/11/18 to 8.9 today. Hold ASA, Protonix gtt. Type & Screen. Consult GI for further eval/intervention. 5. DM: Sliding scale w/ Accu-Cheks. Hold Metformin 6. DVT Prophylaxis: Pharmacologic contraindication due to active GI Bleed 7. Social work for d/c planning as needed. 8. Case discussed w/ ER physician at length, labs/records/imaging reviewed by me.
[2018-08-02] MEDS: Senna/Docusate Sodium 8.6/50 MG Tablet PO SCH ×2 (08:31→20:30)
[2018-08-02] MEDS: Finasteride 5 MG Tablet PO SCH (08:31)
[2018-08-02] MEDS: guaiFENesin 600 MG ER Tablet PO SCH ×2 (08:31→20:30)
[2018-08-02] MEDS: Budesonide-Formoterol 160/4.5 MCG 6 GM Inhaler INH SCH ×2 (08:32→20:31)
--- NOTE | 2018-08-02 12:12 | P.CONGI ---
History of Present Illness Consult date: 08/02/18 Consult reason: GI bleed Chief complaint: chest pain, CHF, GI bleed History of Present Illness: This is a 78-year-old male who presented to the hospital on 08/02/2018 with shortness of breath which led to chest pain uncontrolled at home patient also notes dark brown stools times 1 month but denies black sticky stools. Patient states that he had EGD colonoscopy [facility] up for [facility]evaluation [facility] to make it to that appointment but felt he was unstable this past p.m. patient denies any current fever no obvious hematemesis and no bright red rectal bleeding. Patient denies any iron supplements but does have a history of multiple EGDs performed in April and May 2018 patient was treated for AVMs with APC also noted was mild gastritis. Current labs reviewed which show hemoglobin 8.9, BNP 358, normal troponin, mild renal insufficiency with BUN 19 and creatinine 1.32. Currently being monitored per cardiology and treated for moderate coronary artery disease and non-STEMI back in April 2018. Gastroenterology has been consulted to assist in his care and to evaluate for GI bleeding which could be secondary to patient's AVMs <Lynnette Friedman - Last Filed: 08/02/18 12:04> Chief complaint: chest pain, CHF, GI bleed <Taisha Cleveland - Last Filed: 08/02/18 19:05> Review of Systems All other systems reviewed negative except as stated in HPI <Lynnette Friedman - Last Filed: 08/02/18 12:04> ON LICENSE OF [facility] - History History Provided By: Medical Record - Medical History Medical History: Medical History (Last Reviewed 08/02/18 @ 01:58 by Dorina Al MD) Diabetes HTN (hypertension) Hyperlipemia - Surgical History Surgical History: Surgical History (Last Reviewed 08/02/18 @ 01:58 by Dorina Al MD) History of tonsillectomy and adenoidectomy - Family History Family History: Family History (Last Reviewed 08/02/18 @ 01:58 by Dorina Al MD) Other Diabetes - Tobacco History Second Hand Smoke Exposure: No Smoking Status: Former smoker Tobacco Type: Cigarettes - Alcohol History How Often Do You Have a Drink Containing Alcohol: Never - Substance Use History Substance History: No History of Abuse - Travel History Recent Travel in the [place] Within the Last 8 Weeks: No Recent Travel Out of the Country Within the Last 8 Weeks: No - Immunization History Tetanus Immunization: <5 Years <Lynnette Friedman - Last Filed: 08/02/18 12:04> - Medical History Medical History: Medical History (Last Reviewed 08/02/18 @ 01:58 by Dorina Al MD) Diabetes HTN (hypertension) Hyperlipemia - Surgical History Surgical History: Surgical History (Last Reviewed 08/02/18 @ 01:58 by Dornia Al MD) History of tonsillectomy and adenoidectomy - Family History Family History: Family History (Last Reviewed 08/02/18 @ 01:58 by Dorina Al MD) Other Diabetes <Taisha Cleveland - Last Filed: 08/02/18 19:05> Medications and Allergies Active Medications: Active Medications Acetaminophen (Tylenol) 650 mg PO Q4H PRN PRN Reason: Temp > 100.4 Al Hydroxide/Mg Hydroxide (Milk Of [employer] Liq) 30 ml PO Q12H PRN PRN Reason: Mild Constipation Albuterol (Duoneb Neb (Prn)) 1 ampul NEB Q4HR NEB PRN PRN Reason: SOB/WHEEZING Aspirin (Aspirin Chew) 162 mg PO DAILY [facility] Bisacodyl (Dulcolax Supp) 10 mg RECTAL DAILY PRN PRN Reason: SEVERE CONSITIPATION Budesonide/Formoterol Fumarate (Symbicort 160/4.5 Mcg Inh) 2 puff INH BID [facility] Last Admin: 08/02/18 08:32 Dose: 2 puff Dextrose (D50w Vial) 50 ml IV.PUSH UNSCH PRN PRN Reason: PER HYPOGLYCEMIA PROTOCOL Finasteride (Proscar) 5 mg PO DAILY [facility] Last Admin: 08/02/18 08:31 Dose: 5 mg Glucagon (Glucagon Inj) 1 mg OTHER PRN PRN PRN Reason: for Hypoglycemia Protocol Guaifenesin (Mucinex Er) 600 mg PO BID [facility] Last Admin: 08/02/18 08:31 Dose: 600 mg Pantoprazole Sodium 80 mg/ (Sodium Chloride) 100 mls @ 10 mls/hr IV.CONT CONT [facility] Last Admin: 08/02/18 03:35 Dose: 10 mls/hr Sodium Chloride (Ns Inj) 250 mls @ 15 mls/hr IV.SIG ONCE [facility] Stop: 08/02/18 19:39 Insulin Aspart (Novolog Insulin Correctional Sugar Inj) 0 unit SQ ACHS [facility]; Protocol Lactulose (Lactulose Liq) 30 ml PO DAILY PRN PRN Reason: SEVERE CONSITIPATION Morphine Sulfate (Morphine Inj) 2 mg IV.PUSH Q4H PRN PRN Reason: PAIN 6-10 Ondansetron HCl (Zofran Inj) 4 mg IV.PUSH Q6H PRN PRN Reason: NAUSEA OR VOMITING Pravastatin Sodium (Pravachol) 40 mg PO DAILY [facility] Last Admin: 08/02/18 08:31 Dose: 40 mg Senna/Docusate Sodium (Morenita-Colace) 1 tab PO BID [facility] Last Admin: 08/02/18 08:31 Dose: 1 tab Sennosides (Senokot) 17.2 mg PO Q12H PRN PRN Reason: Moderate Constipation Sodium Chloride (Ns Flush) 2 ml IV.FLUSH BID [facility] Last Admin: 08/02/18 08:31 Dose: 2 ml Sodium Chloride (Ns Flush) 2 ml IV.FLUSH PRN PRN PRN Reason: FLUSH AFTER USING IV ACCESS Terazosin HCl (Hytrin) 10 mg PO DAILY [facility] Last Admin: 08/02/18 08:31 Dose: 10 mg <Lynnette Friedman M - Last Filed: 08/02/18 12:04> Active Medications: Active Medications Acetaminophen (Tylenol) 650 mg PO Q4H PRN PRN Reason: Temp > 100.4 Al Hydroxide/Mg Hydroxide (Milk Of Magnesia Liq) 30 ml PO Q12H PRN PRN Reason: Mild Constipation Albuterol (Duoneb Neb (Prn)) 1 ampul NEB Q4HR NEB PRN PRN Reason: SOB/WHEEZING Aspirin (Aspirin Chew) 162 mg PO DAILY [facility] Last Admin: 08/02/18 13:36 Dose: Not Given Bisacodyl (Dulcolax Supp) 10 mg RECTAL DAILY PRN PRN Reason: SEVERE CONSITIPATION Budesonide/Formoterol Fumarate (Symbicort 160/4.5 Mcg Inh) 2 puff INH BID [facility] Last Admin: 12/08/18 08:32 Dose: 2 puff Dextrose (D50w Vial) 50 ml IV.PUSH UNSCH PRN PRN Reason: PER HYPOGLYCEMIA PROTOCOL Finasteride (Proscar) 5 mg PO DAILY [facility] Last Admin: 08/02/18 08:31 Dose: 5 mg Glucagon (Glucagon Inj) 1 mg OTHER PRN PRN PRN Reason: for Hypoglycemia Protocol Guaifenesin (Mucinex Er) 600 mg PO BID [facility] Last Admin: 08/02/18 08:31 Dose: 600 mg Pantoprazole Sodium 80 mg/ (Sodium Chloride) 100 mls @ 10 mls/hr IV.CONT CONT [facility] Last Admin: 08/02/18 03:35 Dose: 10 mls/hr Sodium Chloride (Ns Inj) 250 mls @ 15 mls/hr IV.SIG ONCE [facility] Stop: 08/02/18 19:39 Insulin Aspart (Novolog Insulin Correctional Sugar Inj) 0 unit SQ ACHS [facility]; Protocol Last Admin: 08/02/18 13:36 Dose: Not Given Lactulose (Lactulose Liq) 30 ml PO DAILY PRN PRN Reason: SEVERE CONSITIPATION Morphine Sulfate (Morphine Inj) 2 mg IV.PUSH Q4H PRN PRN Reason: PAIN 6-10 Ondansetron HCl (Zofran Inj) 4 mg IV.PUSH Q6H PRN PRN Reason: NAUSEA OR VOMITING Pravastatin Sodium (Pravachol) 40 mg PO DAILY [facility] Last Admin: 08/02/18 08:31 Dose: 40 mg Senna/Docusate Sodium (Morenita-Colace) 1 tab PO BID [facility] Last Admin: 08/02/18 08:31 Dose: 1 tab Sennosides (Senokot) 17.2 mg PO Q12H PRN PRN Reason: Moderate Constipation Sodium Chloride (Ns Flush) 2 ml IV.FLUSH BID [facility] Last Admin: 08/02/18 08:31 Dose: 2 ml Sodium Chloride (Ns Flush) 2 ml IV.FLUSH PRN PRN PRN Reason: FLUSH AFTER USING IV ACCESS Terazosin HCl (Hytrin) 10 mg PO DAILY [facility] Last Admin: 08/02/18 08:31 Dose: 10 mg <Bratu,Taisha - Last Filed: 08/02/18 19:05> Allergies Allergy/AdvReac Type Severity Reaction Status Date / Time rosuvastatin AdvReac Mild CRAMPS Verified 08/02/18 01:08 Home Medications Medication Instructions Recorded Confirmed Type albuterol sulfate 2.5 mg INHALATION QID 05/22/18 08/02/18 History amlodipine 5 mg PO DAILY 05/22/18 08/02/18 History budesonide-formoterol 2 puff INHALATION BID 05/22/18 08/02/18 History enalapril maleate 10 mg PO DAILY 05/22/18 08/02/18 History finasteride 5 mg PO DAILY 05/22/18 08/02/18 History metformin 500 mg PO BID 05/22/18 08/02/18 History xakjyqil-vpkhxska-tzvienu fum 9 mg PO DAILY 05/22/18 08/02/18 History [Multi Vitamin] pravastatin 40 mg PO DAILY 05/22/18 08/02/18 History terazosin 10 mg PO DAILY 05/22/18 08/02/18 History aspirin [Aspirin Low Dose] 81 mg PO DAILY 08/02/18 08/02/18 History Exam Vital signs: Vital Signs 08/02/18 01:07 08/02/18 01:15 08/02/18 01:27 Temperature 97.9 F Pulse Rate 92 H 84 Respiratory Rate 26 H 24 Blood Pressure 108/58 L 151/67 H Pulse Oximetry 92 L 93 L 96 08/02/18 01:30 08/02/18 01:50 08/02/18 02:00 Temperature Pulse Rate 79 74 75 Respiratory Rate 22 20 23 Blood Pressure 143/63 H 125/58 L 121/59 L Pulse Oximetry 98 97 96 08/02/18 02:10 08/02/18 02:30 08/02/18 03:00 Temperature Pulse Rate 74 82 70 Respiratory Rate 20 24 22 Blood Pressure 122/59 L 148/83 H 136/80 Pulse Oximetry 97 97 98 08/02/18 03:30 08/02/18 05:15 08/02/18 06:00 Temperature 99.8 F H Pulse Rate 74 70 67 Respiratory Rate 24 20 Blood Pressure 138/60 130/61 Pulse Oximetry 97 95 08/02/18 07:00 08/02/18 08:00 08/02/18 10:56 Temperature 99.6 F 99 F Pulse Rate 69 66 Respiratory Rate 18 18 Blood Pressure 129/60 116/58 L Pulse Oximetry 94 L 94 L 96 08/02/18 11:14 Temperature 99.0 F Pulse Rate 64 Respiratory Rate 18 Blood Pressure 108/54 L Pulse Oximetry 98 Intake & Output 08/01/18 08/02/18 08/02/18 18:59 06:59 18:59 Intake Total 35 / 35 0 / 0 Output Total 1175 / 1175 Balance -1140 / -1140 0 / 0 Weight 78 kg Intake: IV 35 / 35 Protonix Inj 80 MG In NS Inj 35 35 / 35 ML @ 420 mls/hr IV.SIG BOLUS ONE Rx#:[id number] Intake (Blood Product) Amt 0 / 0 Rbc As-3 Leukoreduced Unit 0 / 0 [id number] Output: Urine 1175 / 1175 Other: # Voids 0 Date of Last Bowel Movement 08/02/18 - Constitutional mild distress, cooperative (Generalized weakness) - Routine HEENT Exam Head: Present: normocephalic (Pale) ENT: Present: mucous membranes moist - Routine Neck Exam Present: supple - Routine Respiratory Exam Present: accessory muscle use, decreased breath sounds - Routine Cardiovascular Exam Present: S1, S2, murmur (Systolic) - Routine Abdominal Exam Present: soft (No obvious abdominal pain) - Routine Skin Exam Present: intact, pallor - Routine Neurological Exam Present: alert (Answering simple questions) <Lynnette Friedman - Last Filed: 08/02/18 12:04> Vital signs: Vital Signs 08/02/18 01:07 08/02/18 01:15 08/02/18 01:27 Temperature 97.9 F Pulse Rate 92 H 84 Respiratory Rate 26 H 24 Blood Pressure 108/58 L 151/67 H Pulse Oximetry 92 L 93 L 96 08/02/18 01:30 08/02/18 01:50 08/02/18 02:00 Temperature Pulse Rate 79 74 75 Respiratory Rate 22 20 23 Blood Pressure 143/63 H 125/58 L 121/59 L Pulse Oximetry 98 97 96 08/02/18 02:10 08/02/18 02:30 08/02/18 03:00 Temperature Pulse Rate 74 82 70 Respiratory Rate 20 24 22 Blood Pressure 122/59 L 148/83 H 136/80 Pulse Oximetry 97 97 98 08/02/18 03:30 08/02/18 05:15 08/02/18 06:00 Temperature 99.8 F H Pulse Rate 74 70 67 Respiratory Rate 24 20 Blood Pressure 138/60 130/61 Pulse Oximetry 97 95 08/02/18 07:00 08/02/18 08:00 08/02/18 09:00 Temperature 99.6 F Pulse Rate 64 66 62 Respiratory Rate 18 Blood Pressure 129/60 Pulse Oximetry 94 L 94 L 08/02/18 10:00 08/02/18 10:56 08/02/18 11:00 Temperature 99 F 99 F Pulse Rate 62 66 70 Respiratory Rate 18 18 Blood Pressure 116/58 L 108/54 L Pulse Oximetry 96 97 08/02/18 11:14 08/02/18 12:00 Temperature 99.0 F Pulse Rate 64 60 Respiratory Rate 18 Blood Pressure 108/54 L Pulse Oximetry 98 Intake & Output 08/01/18 08/02/18 08/02/18 18:59 06:59 18:59 Intake Total 35 / 35 0 / 0 Output Total 1175 / 1175 Balance -1140 / -1140 0 / 0 Weight 78 kg Intake: IV 35 / 35 Protonix Inj 80 MG In NS Inj 35 35 / 35 ML @ 420 mls/hr IV.SIG BOLUS ONE Rx#:[id number] Intake (Blood Product) Amt 0 / 0 Rbc As-3 Leukoreduced Unit 0 / 0 [id number] Output: Urine 1175 / 1175 Other: # Voids 0 Date of Last Bowel Movement 08/02/18 <Taisha Cleveland - Last Filed: 08/02/18 19:05> Results - Labs CBC & Chem 7: 08/02/18 01:50 08/02/18 01:50 Labs: Laboratory Results - last 24 hr 08/02/18 08/02/18 08/02/18 01:50 01:50 01:50 WBC 8.8 RBC 3.20 L Hgb 8.9 L Hct 26.3 L MCV 82.0 MCH 28.0 MCHC 34.1 RDW 16.7 Plt Count 193 MPV 9.0 Neut % (Auto) 81.0 H Lymph % (Auto) 8.4 L [place] % (Auto) 7.9 Eos % (Auto) 1.9 Baso % (Auto) 0.8 Neut # (Auto) 7.1 Lymph # (Auto) 0.7 L [place] # (Auto) 0.7 Eos # (Auto) 0.2 Baso # (Auto) 0.1 WBC Differential . Differential Comment Auto diff final Sodium 141 Potassium 3.9 Chloride 107 Carbon Dioxide 23.6 Anion Gap 10 BUN 19 H Creatinine 1.32 H Estimated GFR 52 L POC Glucose Random Glucose 151 H Calcium 7.8 L Magnesium 2.0 Total Bilirubin 0.3 AST 18 ALT 19 Alkaline Phosphatase 78 Troponin I 0.04 B-Natriuretic Peptide 358 H Total Protein 6.5 Albumin 2.7 L Blood Type Antibody Screen MTS Gel Crossmatch 08/02/18 08/02/18 08/02/18 03:20 08:37 09:34 WBC RBC Hgb Hct MCV MCH MCHC RDW Plt Count MPV Neut % (Auto) Lymph % (Auto) [place] % (Auto) Eos % (Auto) Baso % (Auto) Neut # (Auto) Lymph # (Auto) [place] # (Auto) Eos # (Auto) Baso # (Auto) WBC Differential Differential Comment Sodium Potassium Chloride Carbon Dioxide Anion Gap BUN Creatinine Estimated GFR POC Glucose 142 H Random Glucose Calcium Magnesium Total Bilirubin AST ALT Alkaline Phosphatase Troponin I 0.40 H B-Natriuretic Peptide Total Protein Albumin Blood Type O Negative Antibody Screen Negative MTS Gel Crossmatch See Detail - Imaging Impressions Chest X-Ray 08/02/18 01:27 CONCLUSION: Right lung infiltrate. <Lynnette Friedman - Last Filed: 08/02/18 12:04> - Labs CBC & Chem 7: 08/02/18 01:50 08/02/18 01:50 Labs: Laboratory Results - last 24 hr 08/02/18 08/02/18 08/02/18 01:50 01:50 01:50 WBC 8.8 RBC 3.20 L Hgb 8.9 L Hct 26.3 L MCV 82.0 MCH 28.0 MCHC 34.1 RDW 16.7 Plt Count 193 MPV 9.0 Neut % (Auto) 81.0 H Lymph % (Auto) 8.4 L [place] % (Auto) 7.9 Eos % (Auto) 1.9 Baso % (Auto) 0.8 Neut # (Auto) 7.1 Lymph # (Auto) 0.7 L [place] # (Auto) 0.7 Eos # (Auto) 0.2 Baso # (Auto) 0.1 WBC Differential . Differential Comment Auto diff final Sodium 141 Potassium 3.9 Chloride 107 Carbon Dioxide 23.6 Anion Gap 10 BUN 19 H Creatinine 1.32 H Estimated GFR 52 L POC Glucose Random Glucose 151 H Calcium 7.8 L Magnesium 2.0 Total Bilirubin 0.3 AST 18 ALT 19 Alkaline Phosphatase 78 Troponin I 0.04 B-Natriuretic Peptide 358 H Total Protein 6.5 Albumin 2.7 L Blood Type Antibody Screen MTS Gel Crossmatch 08/02/18 08/02/18 08/02/18 03:20 08:37 09:34 WBC RBC Hgb Hct MCV MCH MCHC RDW Plt Count MPV Neut % (Auto) Lymph % (Auto) [place] % (Auto) Eos % (Auto) Baso % (Auto) Neut # (Auto) Lymph # (Auto) [place] # (Auto) Eos # (Auto) Baso # (Auto) WBC Differential Differential Comment Sodium Potassium Chloride Carbon Dioxide Anion Gap BUN Creatinine Estimated GFR POC Glucose 142 H Random Glucose Calcium Magnesium Total Bilirubin AST ALT Alkaline Phosphatase Troponin I 0.40 H B-Natriuretic Peptide Total Protein Albumin Blood Type O Negative Antibody Screen Negative MTS Gel Crossmatch See Detail 08/02/18 12:35 WBC RBC Hgb Hct MCV MCH MCHC RDW Plt Count MPV Neut % (Auto) Lymph % (Auto) [place] % (Auto) Eos % (Auto) Baso % (Auto) Neut # (Auto) Lymph # (Auto) [place] # (Auto) Eos # (Auto) Baso # (Auto) WBC Differential Differential Comment Sodium Potassium Chloride Carbon Dioxide Anion Gap BUN Creatinine Estimated GFR POC Glucose 130 H Random Glucose Calcium Magnesium Total Bilirubin AST ALT Alkaline Phosphatase Troponin I B-Natriuretic Peptide Total Protein Albumin Blood Type Antibody Screen MTS Gel Crossmatch - Imaging Impressions Chest X-Ray 08/02/18 01:27 CONCLUSION: Right lung infiltrate. <Taisha Cleveland - Last Filed: 08/02/18 19:05> Assessment and Plan - Plan This is a 78-year-old male who presented to the hospital on 08/02/2018 with shortness of breath which led to chest pain uncontrolled at home patient also notes dark brown stools times 1 month but denies black sticky stools. Patient states that he had EGD colon[facility]eval[facility] was [facility] to make it to that appointment but felt he was unstable this past p.m. patient denies any current fever no obvious hematemesis and no bright red rectal bleeding. Patient denies any iron supplements but does have a history of multiple EGDs performed in April and May 2018 patient was treated for AVMs with APC also noted was mild gastritis. Current labs reviewed which show hemoglobin 8.9, BNP 358, normal troponin, mild renal insufficiency with BUN 19 and creatinine 1.32. Currently being monitored per cardiology and treated for moderate coronary artery disease and non-STEMI back in April 2018. Gastroenterology has been consulted to assist in his care and to evaluate for GI bleeding which could be secondary to patient's AVMs Symptomatic anemia which could be related to GI bleed and history of AVMs, currently 8.9 Melena stools times 1 month dark brown could be related to slow GI bleed Chest pain shortness of breath known for moderate coronary artery disease and followed with Dr. silva Elevated BNP 358 Plan Diet per attending Monitor labs with special attention hemoglobin and transfuse as needed Monitor for any acute changes in stool color Patient may need reevaluation of EGD but will need cardiac clearance first PPI drip continue Okay for ASA 162 mg daily Bowel regimen as needed Supportive care Patient was seen per myself and Dr. Cleveland, note was written on her behalf <Lynnette Friedman - Last Filed: 08/02/18 12:04> - Attending Attestation seen, examined agree with above egd/enteroscopy once cardiac clearance obtained <Taisha Cleveland - Last Filed: 08/02/18 19:05>
[2018-08-02] MEDS: Insulin NovoLOG Aspart Correctional Sugar Inj SQ SCH ×4 (13:35→21:33)
[2018-08-02] MEDS: Pantoprazole Inj 80 MG in Sodium Chlor 0.9% Inj 100 ML IV.CONT SCH (15:27)
--- NOTE | 2018-08-02 17:48 | ECG ---
Date Performed: 08/02/2018 Time Performed: 01:21:13 PTAGE: 78 years EKG: Sinus rhythm LEFT BUNDLE BRANCH BLOCK Since the previous tracing, no significant change noted ABNORMAL ECG PREVIOUS TRACING : 06/09/2018 12.05 DOCTOR: Elmer Piper Interpretating Date/Time 08/02/2018 17:32:24
[2018-08-03 05:06] LABS: Baso # (Auto) 0.1 th/mm3 (0.0-0.2); Baso % (Auto) 1.4 % (0.0-2.0); Eos # (Auto) 0.2 th/mm3 (0.0-0.4); Eos % (Auto) 3.5 % (0.0-4.0); Hematocrit 29.8 % (39.0-51.0); Hemoglobin 10.2 gm/dL (13.0-17.0); Lymph # (Auto) 0.9 th/mm3 (1.0-4.8); Lymph % (Auto) 13.5 % (9.0-44.0); Mean Corpuscular HGB Conc 34.3 % (32.0-36.0); Mean Corpuscular Hemoglobin 28.1 pg (27.0-34.0); Mean Corpuscular Volume 81.7 fL (80.0-100.0); Mean Platelet Volume 9.3 fL (7.0-11.0); Mono # (Auto) 0.6 th/mm3 (0.0-0.9); Mono % (Auto) 9.2 % (0.0-8.0); Neut # (Auto) 5.1 th/mm3 (1.8-7.7); Neut % (Auto) 72.4 % (16.0-70.0); Platelet Count 188 th/mm3 (150-450); Red Blood Count 3.65 mil/mm3 (4.50-5.90); Red Cell Distribution Width 16.5 % (11.6-17.2)
[2018-08-03 05:34] LABS: Albumin 2.7 g/dL (3.4-5.0); Anion Gap 5 meq/L (5-15); Aspartate Aminotransferase 15 U/L (15-37); Blood Urea Nitrogen 20 mg/dL (7-18); Calcium 8.3 mg/dL (8.5-10.1); Carbon Dioxide 27.6 meq/L (21.0-32.0); Chloride 107 meq/L (98-107); Glomerular Filtration Rate 50 mL/min (>89); Glucose,Random 86 mg/dL (74-106); Potassium 4.2 meq/L (3.5-5.1); Sodium 140 meq/L (136-145)
[2018-08-03 05:39] LABS: Alanine Aminotransferase 17 U/L (12-78); Alkaline Phosphatase 71 U/L (45-117); Total Protein 6.5 g/dL (6.4-8.2)
[2018-08-03] MEDS: Senna/Docusate Sodium 8.6/50 MG Tablet PO SCH ×2 (08:41→21:21)
[2018-08-03] MEDS: guaiFENesin 600 MG ER Tablet PO SCH ×2 (08:41→21:20)
[2018-08-03] MEDS: Insulin NovoLOG Aspart Correctional Sugar Inj SQ SCH ×3 (08:41→17:16)
[2018-08-03] MEDS: Finasteride 5 MG Tablet PO SCH (08:42)
[2018-08-03] MEDS: Budesonide-Formoterol 160/4.5 MCG 6 GM Inhaler INH SCH ×2 (08:42→21:22)
[2018-08-03] MEDS: Pantoprazole Inj 80 MG in Sodium Chlor 0.9% Inj 100 ML IV.CONT SCH ×2 (08:42→14:15)
--- NOTE | 2018-08-03 12:19 | P.PNIM ---
Subjective Interval history: No reports of chest pain today. Patient's blood count is increased after transfusion. No further evidence of bleeding. Physical Exam Vital signs: Last Vital Signs Temp 98.3 F 08/03/18 11:00 Pulse 63 08/03/18 11:00 Resp 18 08/03/18 11:00 BP 145/65 H 08/03/18 11:00 Pulse Ox 93 L 08/03/18 11:30 Intake & Output 08/01/18 08/02/18 08/03/18 08/04/18 06:59 06:59 06:59 06:59 Intake Total 35 / 35 1100 / 1100 Output Total 1175 / 1175 1725 / 1725 Balance -1140 / -1140 -625 / -625 Weight 78 kg 77 kg Narrative: GENERAL: NAD, A&Ox3 HEAD: Normocephalic. NECK: Supple, trachea midline. No lymphadenopathy. EYES: No scleral icterus. No injection or drainage. CARDIOVASCULAR: Regular rate and rhythm without murmurs, gallops, or rubs. RESPIRATORY: Breath sounds equal bilaterally. No accessory muscle use. GASTROINTESTINAL: Abdomen soft, non-tender, nondistended. MUSCULOSKELETAL: No cyanosis, or edema. SKIN: Warm and dry. NEURO: No focal neurological deficits. Results Labs CBC & Chem 7: 08/03/18 04:27 08/03/18 04:27 Assessment and Plan Plan 78-year-old male admitted secondary to chest pain with CHF exacerbation and GI bleed GI bleed History of recurrent bleeding ulcer (4 times in the past 6 months) This may have resolved Continue monitoring CBC Hemoglobin levels are improved at this point Continue IV PPI Cardiac clearance will be needed prior to EGD Systolic CHF Exacerbation EF of 40% on 05/23/18 echo Symptoms Improving Continue to follow clinically COPD exacerbation Continue duo nebs Continue Symbicort Continue Mucinex Improving Diabetes mellitus type 2 Follow blood sugars Insulin sliding scale Diabetic diet DVT prophylaxis SCDs
[2018-08-03] MEDS ORDERED: PEG 3350/E-Lyte Soln 4000 ML Bottle PO ONE (16:00)
--- NOTE | 2018-08-03 16:18 | MB ---
cc: Vasu Lima MD DATE: 08/03/2018 MAPPING SUPERVISOR: Ileana Chin MD PRIMARY CARE PHYSICIAN: Francisco Khan MD REASON FOR CONSULTATION: I was asked to evaluate the patient with chest pain syndrome and abnormal troponin levels. HISTORY OF PRESENT ILLNESS: Ismael Silverman is a pleasant 78-year-old gentleman with past medical history as noted and listed below. He reports having progressive shortness of breath and dyspnea on exertion over the past 1-2 weeks. Over the past week, he has noted episodes of retrosternal chest pain with exertion. He is now readmitted for exertional chest pain. Emergency room evaluation was significant for troponins positive for myocardial injury. He reports having upper endoscopy and was found to have ulcers requiring sclerosis. He also had cardiac catheterization several months ago that showed no significant disease requiring intervention. PERTINENT LABORATORY DATA: Potassium 4.2, creatinine 1.37, BUN 20. Troponin 0.40. WBC 8.8, hemoglobin 8.9, platelet count 193,000. MEDICATIONS: Reviewed and noted in MAR. PAST MEDICAL HISTORY: As above. He has history of diabetes, hypertension, hyperlipidemia, coronary artery disease, upper gastrointestinal bleed, COPD. Upper endoscopy 05/24/2018: Mild gastritis. Cardiac catheterization, Dr. Chin: Moderate CAD 60% circumflex artery, ejection fraction 40%. PAST SURGICAL HISTORY: Status post tonsillectomy and adenoidectomy. FAMILY HISTORY: Positive for diabetes. SOCIAL HISTORY: He is a former cigarette smoker. He does not drink alcohol. He denies illicit drug use. REVIEW OF SYSTEMS: As above. Twelve-point review of symptoms reviewed and noted. No recent fever, chills, cough or sputum production. No recent genitourinary or neurologic symptoms. PHYSICAL EXAMINATION: VITAL SIGNS: Pulse 68, room air saturation 93%, blood pressure 145/65, respirations 18. HEENT: He is anicteric. PERRLA. No xanthelasma. NECK: Flat JVD. No carotid bruits. LUNGS: Clear to auscultation. HEART: Regular rate and rhythm, 2/6 systolic murmur at left lower sternal border. ABDOMEN: Soft and nontender. EXTREMITIES: Without peripheral edema. LABORATORY DATA: As above. IMPRESSION: 1. Exertional chest pain suggestive of exertional angina, possibly due to demand ischemia. 2. Anemia due to a history of GI bleed, query active bleed, hemoglobin/hematocrit decreased from previous admission. 3. Hypertension. 4. Hyperlipidemia. 5. Moderate cardiomyopathy, ejection fraction 40%. 6. Abnormal troponin level suggestive of myocardial injury, likely demand ischemia from severe anemia. 7. Chronic obstructive pulmonary disease. 8. Diabetes mellitus. PLAN: 1. Aspirin has been discontinued. 2. Okay to have upper endoscopy. 3. Outpatient cardiovascular Medications have been continued. 4. Dr. Chin will return in a.m. MD NEREYDA Garvin/boom , 02:15 PM , 02:26 PM
--- NOTE | 2018-08-03 16:54 | P.PNGI ---
Subjective Interval history: Patient sitting up in chair alert answering simple questions denies any further chest pain or shortness of breath No nausea no vomiting no abdominal pain, no obvious bleeding. States feeling much stronger after transfusion <Lynnette Friedman - Last Filed: 08/03/18 16:49> Physical Exam Vital signs: Vital Signs 08/02/18 17:00 08/02/18 17:27 08/02/18 18:00 Temperature Pulse Rate 72 61 Respiratory Rate Blood Pressure Pulse Oximetry 97 08/02/18 19:00 08/02/18 19:40 08/02/18 20:00 Temperature 99 F Pulse Rate 83 83 57 L Respiratory Rate 20 Blood Pressure 134/63 Pulse Oximetry 97 93 L 08/02/18 21:00 08/02/18 22:00 08/02/18 23:00 Temperature Pulse Rate 58 L 87 64 Respiratory Rate Blood Pressure Pulse Oximetry 08/02/18 23:35 08/03/18 00:00 08/03/18 01:00 Temperature 98.9 F Pulse Rate 51 L 87 54 L Respiratory Rate 17 Blood Pressure 134/63 Pulse Oximetry 97 08/03/18 02:00 08/03/18 03:00 08/03/18 04:00 Temperature 98.7 F Pulse Rate 87 55 L 55 L Respiratory Rate 18 Blood Pressure 135/61 Pulse Oximetry 97 08/03/18 05:00 08/03/18 06:00 08/03/18 07:00 Temperature 97.9 F Pulse Rate 57 L 63 72 Respiratory Rate 18 Blood Pressure 138/64 Pulse Oximetry 93 L 08/03/18 08:00 08/03/18 09:00 08/03/18 10:00 Temperature Pulse Rate 54 L 54 L 52 L Respiratory Rate Blood Pressure Pulse Oximetry 93 L 08/03/18 11:00 08/03/18 11:30 08/03/18 12:00 Temperature 98.3 F Pulse Rate 63 68 Respiratory Rate 18 Blood Pressure 145/65 H Pulse Oximetry 93 L 93 L 08/03/18 13:00 08/03/18 14:00 08/03/18 15:00 Temperature 98.3 F Pulse Rate 66 62 58 L Respiratory Rate 18 Blood Pressure 145/65 H Pulse Oximetry 96 08/03/18 16:00 Temperature Pulse Rate 55 L Respiratory Rate Blood Pressure Pulse Oximetry Intake & Output 1208/03/18 08/03/18 18:59 06:59 18:59 Intake Total 580 / 580 520 / 520 100 / 100 Output Total 900 / 900 825 / 825 Balance -320 / -320 -305 / -305 100 / 100 Weight 77 kg Intake: IV 100 / 100 100 / 100 100 / 100 Protonix Inj 80 MG In NS Inj 100 / 100 100 / 100 100 / 100 100 ML @ 10 mls/hr IV.CONT Q10H [facility] Rx#:[id number] Oral 480 / 480 420 / 420 Intake (Blood Product) Amt 0 / 0 Rbc As-3 Leukoreduced Unit 0 / 0 [id number] Output: Urine 900 / 900 825 / 825 Other: # Voids 2 Date of Last Bowel Movement 08/03/18 - Constitutional no acute distress, cooperative (Pale) - Routine HEENT Exam Head: Present: normocephalic ENT: Present: mucous membranes moist - Routine Neck Exam Present: supple - Routine Respiratory Exam Present: diminished air movement (No shortness of breath at rest) - Routine Abdominal Exam Present: soft, normoactive bowel sounds (No tenderness) - Routine Skin Exam Present: intact, pallor - Routine Neurological Exam Present: alert <Elder,Lynnette M - Last Filed: 08/03/18 16:49> Vital signs: Vital Signs 08/03/18 06:00 08/03/18 07:00 08/03/18 08:00 Temperature 97.9 F Pulse Rate 63 72 54 L Respiratory Rate 18 Blood Pressure 138/64 Pulse Oximetry 93 L 93 L 08/03/18 09:00 08/03/18 10:00 08/03/18 11:00 Temperature 98.3 F Pulse Rate 54 L 52 L 63 Respiratory Rate 18 Blood Pressure 145/65 H Pulse Oximetry 93 L 08/03/18 11:30 08/03/18 12:00 08/03/18 13:00 Temperature Pulse Rate 68 66 Respiratory Rate Blood Pressure Pulse Oximetry 93 L 08/03/18 14:00 08/03/18 15:00 08/03/18 16:00 Temperature 98.3 F Pulse Rate 62 58 L 55 L Respiratory Rate 18 Blood Pressure 145/65 H Pulse Oximetry 96 08/03/18 17:00 08/03/18 18:00 08/03/18 19:00 Temperature Pulse Rate 73 59 L 54 L Respiratory Rate Blood Pressure Pulse Oximetry 08/03/18 20:00 08/03/18 20:25 08/03/18 21:00 Temperature 97.7 F Pulse Rate 58 L 54 L 70 Respiratory Rate 18 Blood Pressure 163/70 H Pulse Oximetry 96 97 08/03/18 22:00 08/03/18 23:00 08/03/18 23:39 Temperature 98 F Pulse Rate 56 L 56 L 56 L Respiratory Rate 18 Blood Pressure 148/65 H Pulse Oximetry 97 08/04/18 00:00 08/04/18 01:00 08/04/18 02:00 Temperature Pulse Rate 56 L 57 L 58 L Respiratory Rate Blood Pressure Pulse Oximetry 96 08/04/18 03:00 08/04/18 04:00 08/04/18 05:00 Temperature 97.8 F Pulse Rate 59 L 58 L 61 Respiratory Rate 18 Blood Pressure 163/71 H Pulse Oximetry 97 Intake & Output 08/03/18 08/03/18 08/04/18 06:59 18:59 06:59 Intake Total 520 / 520 1402 / 1402 520 / 520 Output Total 825 / 825 700 / 700 625 / 625 Balance -305 / -305 702 / 702 -105 / -105 Weight 77 kg Intake: IV 100 / 100 100 / 100 100 / 100 Protonix Inj 80 MG In NS Inj 100 / 100 100 / 100 100 / 100 100 ML @ 10 mls/hr IV.CONT Q10H [facility] Rx#:[id number] Oral 420 / 420 1302 / 1302 420 / 420 Output: Urine 825 / 825 700 / 700 625 / 625 Other: # Voids 4 Date of Last Bowel Movement 08/03/18 # Bowel Movements 1 <Florentin Clevelande - Last Filed: 08/04/18 05:43> Results - Labs CBC & Chem 7: 08/03/18 04:27 08/03/18 04:27 Laboratory Results - last 24 hr 08/02/18 08/02/18 08/03/18 17:02 21:26 04:27 WBC 7.0 RBC 3.65 L Hgb 10.2 L Hct 29.8 L MCV 81.7 MCH 28.1 MCHC 34.3 RDW 16.5 Plt Count 188 MPV 9.3 Neut % (Auto) 72.4 H Lymph % (Auto) 13.5 Pepin % (Auto) 9.2 H Eos % (Auto) 3.5 Baso % (Auto) 1.4 Neut # (Auto) 5.1 Lymph # (Auto) 0.9 L Pepin # (Auto) 0.6 Eos # (Auto) 0.2 Baso # (Auto) 0.1 WBC Differential . Differential Comment Auto diff final Sodium Potassium Chloride Carbon Dioxide Anion Gap BUN Creatinine Estimated GFR POC Glucose 106 119 H Random Glucose Calcium Total Bilirubin AST ALT Alkaline Phosphatase Total Protein Albumin 08/03/18 08/03/18 08/03/18 04:27 07:52 11:51 WBC RBC Hgb Hct MCV MCH MCHC RDW Plt Count MPV Neut % (Auto) Lymph % (Auto) Pepin % (Auto) Eos % (Auto) Baso % (Auto) Neut # (Auto) Lymph # (Auto) Pepin # (Auto) Eos # (Auto) Baso # (Auto) WBC Differential Differential Comment Sodium 140 Potassium 4.2 Chloride 107 Carbon Dioxide 27.6 Anion Gap 5 BUN 20 H Creatinine 1.37 H Estimated GFR 50 L POC Glucose 106 142 H Random Glucose 86 Calcium 8.3 L Total Bilirubin 0.8 AST 15 ALT 17 Alkaline Phosphatase 71 Total Protein 6.5 Albumin 2.7 L <Lynnette Friedman - Last Filed: 08/03/18 16:49> - Labs CBC & Chem 7: 08/04/18 04:08 08/04/18 04:08 Laboratory Results - last 24 hr 08/03/18 08/03/18 08/03/18 07:52 11:51 16:52 WBC RBC Hgb Hct MCV MCH MCHC RDW Plt Count MPV Neut % (Auto) Lymph % (Auto) Pepin % (Auto) Eos % (Auto) Baso % (Auto) Neut # (Auto) Lymph # (Auto) Pepin # (Auto) Eos # (Auto) Baso # (Auto) WBC Differential Differential Comment Sodium Potassium Chloride Carbon Dioxide Anion Gap BUN Creatinine Estimated GFR POC Glucose 106 142 H 119 H Random Glucose Calcium Total Bilirubin AST ALT Alkaline Phosphatase Total Protein Albumin 08/03/18 08/04/18 08/04/18 22:17 04:08 04:08 WBC 7.0 RBC 3.75 L Hgb 10.3 L Hct 31.2 L MCV 83.3 MCH 27.5 MCHC 33.0 RDW 16.6 Plt Count 202 MPV 8.8 Neut % (Auto) 75.5 H Lymph % (Auto) 12.0 Pepin % (Auto) 8.5 H Eos % (Auto) 3.0 Baso % (Auto) 1.0 Neut # (Auto) 5.3 Lymph # (Auto) 0.8 L Pepin # (Auto) 0.6 Eos # (Auto) 0.2 Baso # (Auto) 0.1 WBC Differential . Differential Comment Auto diff final Sodium 142 Potassium 3.9 Chloride 108 H Carbon Dioxide 25.9 Anion Gap 8 BUN 18 Creatinine 1.22 Estimated GFR 57 L POC Glucose 113 H Random Glucose 104 Calcium 8.2 L Total Bilirubin 0.5 AST 17 ALT 17 Alkaline Phosphatase 71 Total Protein 6.8 Albumin 2.6 L <Taisha Cleveland - Last Filed: 08/04/18 05:43> Assessment and Plan - Plan This is a 78-year-old male who presented to the hospital on 08/02/2018 with shortness of breath which led to chest pain uncontrolled at home patient also notes dark brown stools times 1 month but denies black sticky stools. Patient states that he had EGD colonoscopy set up for reevaluation on 08/07/2018 [facility] and was trying to make it to that appointment but felt he was unstable this past p.m. patient denies any current fever no obvious hematemesis and no bright red rectal bleeding. Patient denies any iron supplements but does have a history of multiple EGDs performed in April and May 2018 patient was treated for AVMs with APC also noted was mild gastritis. Current labs reviewed which show hemoglobin 8.9, BNP 358, normal troponin, mild renal insufficiency with BUN 19 and creatinine 1.32. Currently being monitored per cardiology and treated for moderate coronary artery disease and non-STEMI back in April 2018. Gastroenterology has been consulted to assist in his care and to evaluate for GI bleeding which could be secondary to patient's AVMs Symptomatic anemia which could be related to GI bleed and history of AVMs, currently 8.9 Melena stools times 1 month dark brown could be related to slow GI bleed Chest pain shortness of breath known for moderate coronary artery disease and followed with Dr. silva Elevated BNP 358 08/03/2018 current hemoglobin 10.2 after transfusion. Patient denies any chest pain or shortness of breath. Cardiology consult is pending finalization, but patient and staff aware that cardiac clearance is needed for EGD colonoscopy in a.m. patient's original plan was EGD and colonoscopy at the [facility], but plan is to pursue this admission. Symptomatic anemia stabilized with transfusion. No further chest pain since admission which could have been related to anemia Plan Diet liquid diet Consider EGD colonoscopy in the a.m. pending cardiac clearance. N.p.o. at midnight and okay for prep this p.m. Monitor labs for any acute changes in hemoglobin PPI transition to p.o. ASA 162 mg daily Bowel regimen as needed Supportive care Patient was seen per myself and Dr. Cleveland, note was written on her behalf <Lynnette Friedman - Last Filed: 08/03/18 16:49> - Attending Attestation seen, examined agree with above <Taisha Cleveland - Last Filed: 08/04/18 05:43>
[2018-08-04] MEDS: Insulin NovoLOG Aspart Correctional Sugar Inj SQ SCH ×5 (00:44→22:58)
[2018-08-04] MEDS: Pantoprazole Inj 80 MG in Sodium Chlor 0.9% Inj 100 ML IV.CONT SCH ×4 (00:45→23:54)
[2018-08-04 04:50] LABS: Baso # (Auto) 0.1 th/mm3 (0.0-0.2); Eos # (Auto) 0.2 th/mm3 (0.0-0.4); Hematocrit 31.2 % (39.0-51.0); Hemoglobin 10.3 gm/dL (13.0-17.0); Lymph # (Auto) 0.8 th/mm3 (1.0-4.8); Mean Corpuscular Hemoglobin 27.5 pg (27.0-34.0); Mean Corpuscular Volume 83.3 fL (80.0-100.0); Mean Platelet Volume 8.8 fL (7.0-11.0); Mono # (Auto) 0.6 th/mm3 (0.0-0.9); Mono % (Auto) 8.5 % (0.0-8.0); Neut # (Auto) 5.3 th/mm3 (1.8-7.7); Neut % (Auto) 75.5 % (16.0-70.0); Platelet Count 202 th/mm3 (150-450); Red Blood Count 3.75 mil/mm3 (4.50-5.90); Red Cell Distribution Width 16.6 % (11.6-17.2)
[2018-08-04 05:05] LABS: Albumin 2.6 g/dL (3.4-5.0); Anion Gap 8 meq/L (5-15); Aspartate Aminotransferase 17 U/L (15-37); Blood Urea Nitrogen 18 mg/dL (7-18); Calcium 8.2 mg/dL (8.5-10.1); Carbon Dioxide 25.9 meq/L (21.0-32.0); Chloride 108 meq/L (98-107); Glomerular Filtration Rate 57 mL/min (>89); Glucose,Random 104 mg/dL (74-106); Potassium 3.9 meq/L (3.5-5.1); Sodium 142 meq/L (136-145)
[2018-08-04 05:06] LABS: Alanine Aminotransferase 17 U/L (12-78)
[2018-08-04 05:09] LABS: Alkaline Phosphatase 71 U/L (45-117); Total Protein 6.8 g/dL (6.4-8.2)
--- NOTE | 2018-08-04 10:13 | GIPROC ---
[facility] [address] [facility]. [facility], [address] COLONOSCOPY PROCEDURE REPORT EXAM DATE: 08/04/2018 PATIENT NAME: Ismael Silverman MR #: [id number] BIRTHDATE: 1940 ENDOSCOPIST: Kodi Kraft MD ORDER #: [id number] ORACLE ADF DEVELOPER: Mitzi Dhillon Hatchett, Chauncey, and Aiyana Hubbard STATUS: inpatient INDICATIONS: The patient is a 78 yr old male here for a colonoscopy due to melena and iron deficiency anemia PROCEDURE PERFORMED: Colonoscopy with ablation Submucosal injection, any substance MEDICATIONS: Per Anesthesia and None. PREP QUALITY: fair ESTIMATED BLOOD LOSS: None CONSENT: The patient understands the risks and benefits of the procedure and understands that these risks include, but are not limited to: sedation, allergic reaction, infection, perforation and/or bleeding. Alternative means of evaluation and treatment include, among others: physical exam, x-rays, and/or surgical intervention. The patient elects to proceed with this endoscopic procedure. medical equipment was checked for proper function. Hand hygiene and appropriate measures for infection prevention was taken. After the risks, benefits and alternatives of the procedure were thoroughly explained, Informed consent was verified, confirmed and timeout was successfully executed by the treatment team. A digital exam was performed and revealed no abnormalities of the rectum The Pentax EC-3490Li endoscope was introduced through the anus and advanced to the cecum, which was identified by both the appendix and ileocecal valve. The instrument was then slowly withdrawn as the colon was fully examined. COLON FINDINGS: Moderate diverticulosis was noted. Two sessile polyps ranging between 3-5mm in size were found at the cecum. A polypectomy was performed with cold forceps. Retroflexed views revealed internal hemorrhoids, Retroflexed views revealed medium internal hemorrhoids, and Retroflexed views revealed internal hemorrhoids The scope was then completely withdrawn from the patient and the procedure terminated. PROCEDURE WITHDRAWAL TIME:10minutes ADVERSE EVENTS: There were no complications. IMPRESSIONS: 1. Moderate diverticulosis was noted 2. Two sessile polyps ranging between 3-5mm in size were found at the cecum; polypectomy was performed with cold forceps 3. Retroflexed views revealed internal hemorrhoids 4. Retroflexed views revealed medium internal hemorrhoids 5. Retroflexed views revealed internal hemorrhoids 6. Was performed 7. Revealed no abnormalities of the rectum RECOMMENDATIONS: Await biopsy results. Biopsy results will not be ready for 7-10 days. If you don't hear from us in two weeks, call our office for results. RECALL: Return 3 years Colonoscopy Kodi Kraft MD eSigned: Kodi Kraft MD 08/04/2018 10:13 AM cc: PATIENT NAME: Ismael Silverman MR#: [id number]
--- NOTE | 2018-08-04 10:18 | GIPROC ---
[facility] [address] [facility]. [facility], [address] EGD PROCEDURE REPORT EXAM DATE: 08/04/2018 PATIENT NAME: Ismael Silverman MR #: [id number] BIRTHDATE: 1940 ATTENDING: Kodi Kraft MD ORDER #: [id number] PSYCH COORDINATOR: Kapil Mcnamara Power, Victoria, and Aiyana Hubbard STATUS: inpatient INDICATIONS: The patient is a 78 yr old male here for an EGD due to iron deficiency anemia and melena PROCEDURE PERFORMED: EGD w/ control of bleeding MEDICATIONS: Per Anesthesia and None. TOPICAL ANESTHETIC: none CONSENT: The patient understands the risks and benefits of the procedure and understands that these risks include, but are not limited to: sedation, allergic reaction, infection, perforation and/or bleeding. Alternative means of evaluation and treatment include, among others: physical exam, x-rays, and/or surgical intervention. The patient elects to proceed with this endoscopic procedure. medical equipment was checked for proper function. Hand hygiene and appropriate measures for infection prevention was taken. After the risks, benefits and alternatives of the procedure were thoroughly explained, Informed consent was verified, confirmed and timeout was successfully executed by the treatment team. The patient was anesthetized with topical anesthesia and the EC-3490Li (Pedi C) endoscope was introduced through the mouth and advanced to the second portion of the duodenum. Retroflexed views revealed an ulcer The gastroscope was then slowly withdrawn and removed. ESOPHAGUS: The mucosa of the esophagus appeared normal. STOMACH: A large non-bleeding, linear and deep ulcer, measuring 3 x 20mm in size, was found in the gastric fundus and cardia. Submucosal injection of 10ml of epinephrine 1:10,000 was performed around the bleeding site. Argon plasma coagulation was applied to the site. With complete hemostasis achieved. ADVERSE EVENTS: There were no complications. IMPRESSIONS: 1. The esophagus appeared normal 2. Large ulcer, measuring 3 x 20mm in size, was found in the gastric fundus and cardia; Submucosal injection of 10ml of epinephrine 1:10,000 was performed around the bleeding site; Argon plasma coagulation was applied to the site; with complete hemostasis achieved 3. Retroflexed views revealed an ulcer RECOMMENDATIONS: IV PROTONIX PATIENT CONDITION: stable DISPOSITION: Inpatient REPEAT EXAM: Return as needed for EGD Kodi Kraft MD eSigned: Kodi Kraft MD 08/04/2018 10:18 AM cc: PATIENT NAME: Ismael Silverman MR#: [id number]
--- NOTE | 2018-08-04 11:22 | P.PNIM ---
Subjective Interval history: Patient cleared by cardiology for GI procedures. EGD shows large gastric ulcer with active bleeding. Interventions performed during EGD. Patient is stable after procedure. Physical Exam Vital signs: Last Vital Signs Temp 98.6 F 08/04/18 10:30 Pulse 68 08/04/18 11:13 Resp 18 08/04/18 10:30 BP 161/72 H 08/04/18 10:30 Pulse Ox 92 L 08/04/18 10:30 Intake & Output 08/02/18 08/03/18 08/04/18 08/05/18 06:59 06:59 06:59 06:59 Intake Total 35 / 35 1100 / 1100 1922 / 1922 700 / 700 Output Total 1175 / 1175 1725 / 1725 1325 / 1325 Balance -1140 / -1140 -625 / -625 597 / 597 700 / 700 Weight 78 kg 77 kg 76.5 kg Narrative: GENERAL: NAD, A&Ox3 HEAD: Normocephalic. NECK: Supple, trachea midline. No lymphadenopathy. EYES: No scleral icterus. No injection or drainage. CARDIOVASCULAR: Regular rate and rhythm without murmurs, gallops, or rubs. RESPIRATORY: Breath sounds equal bilaterally. No accessory muscle use. GASTROINTESTINAL: Abdomen soft, non-tender, nondistended. MUSCULOSKELETAL: No cyanosis, or edema. SKIN: Warm and dry. NEURO: No focal neurological deficits. Results Labs CBC & Chem 7: 08/04/18 04:08 08/04/18 04:08 Assessment and Plan Plan 78-year-old male admitted secondary to chest pain with CHF exacerbation and GI bleed Status post EGD with discovery of large gastric ulcer that was bleeding. Epinephrine injections and cauterizations performed during EGD. Continue IV PPI. Follow CBC. GI bleed History of recurrent bleeding ulcer (4 times in the past 6 months) This may have resolved Continue monitoring CBC Hemoglobin levels are improved at this point Continue IV PPI Cardiac clearance will be needed prior to EGD Systolic CHF Exacerbation EF of 40% on 05/23/18 echo Symptoms Improving Continue to follow clinically COPD exacerbation Continue duo nebs Continue Symbicort Continue Mucinex Improving Diabetes mellitus type 2 Follow blood sugars Insulin sliding scale Diabetic diet DVT prophylaxis SCDs
[2018-08-04] MEDS: guaiFENesin 600 MG ER Tablet PO SCH ×2 (11:30→21:12)
[2018-08-04] MEDS: Finasteride 5 MG Tablet PO SCH (11:30)
[2018-08-04] MEDS: Senna/Docusate Sodium 8.6/50 MG Tablet PO SCH ×2 (11:30→21:12)
[2018-08-04] MEDS: Budesonide-Formoterol 160/4.5 MCG 6 GM Inhaler INH SCH ×2 (11:31→21:12)
--- NOTE | 2018-08-04 14:49 | P.PNCA ---
Subjective Interval history: Patient denies any CP, pressure, palpitations, dizziness, edema or SOB. Medications and Allergies Allergies Allergy/AdvReac Type Severity Reaction Status Date / Time rosuvastatin AdvReac Mild CRAMPS Verified 08/02/18 01:08 Home Medications Medication Instructions Recorded Confirmed Type albuterol sulfate 2.5 mg INHALATION QID 05/22/18 08/02/18 History amlodipine 5 mg PO DAILY 05/22/18 08/02/18 History budesonide-formoterol 2 puff INHALATION BID 05/22/18 08/02/18 History enalapril maleate 10 mg PO DAILY 05/22/18 08/02/18 History finasteride 5 mg PO DAILY 05/22/18 08/02/18 History metformin 500 mg PO BID 05/22/18 08/02/18 History mltiwesd-xnagsgwk-wxsrxzf fum 9 mg PO DAILY 05/22/18 08/02/18 History [Multi Vitamin] pravastatin 40 mg PO DAILY 05/22/18 08/02/18 History terazosin 10 mg PO DAILY 05/22/18 08/02/18 History aspirin [Aspirin Low Dose] 81 mg PO DAILY 08/02/18 08/02/18 History Active Medications: Active Medications Acetaminophen (Tylenol) 650 mg PO Q4H PRN PRN Reason: Temp > 100.4 Al Hydroxide/Mg Hydroxide (Milk Of [place]) 30 ml PO Q12H PRN PRN Reason: Mild Constipation Albuterol (Duoneb Neb (Prn)) 1 ampul NEB Q4HR NEB PRN PRN Reason: SOB/WHEEZING Aspirin (Aspirin Chew) 162 mg PO DAILY [facility] Last Admin: 08/04/18 11:30 Dose: 162 mg Bisacodyl (Dulcolax Supp) 10 mg RECTAL DAILY PRN PRN Reason: SEVERE CONSITIPATION Budesonide/Formoterol Fumarate (Symbicort 160/4.5 Mcg Inh) 2 puff INH BID [facility] Last Admin: 08/04/18 11:31 Dose: 2 puff Dextrose (D50w Vial) 50 ml IV.PUSH UNSCH PRN PRN Reason: PER HYPOGLYCEMIA PROTOCOL Finasteride (Proscar) 5 mg PO DAILY [facility] Last Admin: 08/04/18 11:30 Dose: 5 mg Glucagon (Glucagon Inj) 1 mg OTHER PRN PRN PRN Reason: for Hypoglycemia Protocol Guaifenesin (Mucinex Er) 600 mg PO BID [facility] Last Admin: 08/04/18 11:30 Dose: 600 mg Pantoprazole Sodium 80 mg/ (Sodium Chloride) 100 mls @ 10 mls/hr IV.CONT Q10H [facility] Last Admin: 08/04/18 13:54 Dose: 10 mls/hr Insulin Aspart (Novolog Insulin Correctional Sugar Inj) 0 unit SQ ACHS [facility]; Protocol Last Admin: 08/04/18 11:38 Dose: Not Given Lactulose (Lactulose Liq) 30 ml PO DAILY PRN PRN Reason: SEVERE CONSITIPATION Morphine Sulfate (Morphine Inj) 2 mg IV.PUSH Q4H PRN PRN Reason: PAIN 6-10 Ondansetron HCl (Zofran Inj) 4 mg IV.PUSH Q6H PRN PRN Reason: NAUSEA OR VOMITING Pravastatin Sodium (Pravachol) 40 mg PO DAILY [facility] Last Admin: 08/04/18 11:30 Dose: 40 mg Senna/Docusate Sodium (Morenita-Colace) 1 tab PO BID [facility] Last Admin: 08/04/18 11:30 Dose: Not Given Sennosides (Senokot) 17.2 mg PO Q12H PRN PRN Reason: Moderate Constipation Sodium Chloride (Ns Flush) 2 ml IV.FLUSH BID [facility] Last Admin: 08/04/18 11:33 Dose: 2 ml Sodium Chloride (Ns Flush) 2 ml IV.FLUSH PRN PRN PRN Reason: FLUSH AFTER USING IV ACCESS Terazosin HCl (Hytrin) 10 mg PO DAILY [facility] Last Admin: 08/04/18 11:30 Dose: 10 mg Physical Exam Vital signs: Vital Signs 08/03/18 15:00 08/03/18 16:00 08/03/18 17:00 Temperature 98.3 F Pulse Rate 58 L 55 L 73 Respiratory Rate 18 Blood Pressure 145/65 H Pulse Oximetry 96 08/03/18 18:00 08/03/18 19:00 08/03/18 20:00 Temperature Pulse Rate 59 L 54 L 58 L Respiratory Rate Blood Pressure Pulse Oximetry 96 08/03/18 20:25 08/03/18 21:00 08/03/18 22:00 Temperature 97.7 F Pulse Rate 54 L 70 56 L Respiratory Rate 18 Blood Pressure 163/70 H Pulse Oximetry 97 12/09/18 23:00 08/03/18 23:39 08/04/18 00:00 Temperature 98 F Pulse Rate 56 L 56 L 56 L Respiratory Rate 18 Blood Pressure 148/65 H Pulse Oximetry 97 96 08/04/18 01:00 08/04/18 02:00 08/04/18 03:00 Temperature 97.8 F Pulse Rate 57 L 58 L 59 L Respiratory Rate 18 Blood Pressure 163/71 H Pulse Oximetry 97 08/04/18 04:00 08/04/18 05:00 08/04/18 06:00 Temperature Pulse Rate 58 L 61 61 Respiratory Rate Blood Pressure Pulse Oximetry 08/04/18 07:28 08/04/18 07:31 08/04/18 08:03 Temperature 98.4 F Pulse Rate 61 74 63 Respiratory Rate 16 Blood Pressure 159/70 H Pulse Oximetry 95 97 08/04/18 10:30 08/04/18 11:13 08/04/18 11:37 Temperature 98.6 F 98.1 F Pulse Rate 67 68 56 L Respiratory Rate 18 18 Blood Pressure 161/72 H 147/74 H Pulse Oximetry 92 L 97 08/04/18 12:20 08/04/18 13:19 08/04/18 14:26 Temperature Pulse Rate 56 L 53 L 67 Respiratory Rate Blood Pressure Pulse Oximetry Intake & Output 08/03/18 08/04/18 08/04/18 18:59 06:59 18:59 Intake Total 1402 / 1402 520 / 520 700 / 700 Output Total 700 / 700 625 / 625 Balance 702 / 702 -105 / -105 700 / 700 Weight 76.5 kg Intake: IV 100 / 100 100 / 100 Protonix Inj 80 MG In NS Inj 100 / 100 100 / 100 100 ML @ 10 mls/hr IV.CONT Q10H [facility] Rx#:[id number] Oral 1302 / 1302 420 / 420 Anesthesia Amount 700 / 700 Output: Urine 700 / 700 625 / 625 Other: # Voids 4 Date of Last Bowel Movement 08/03/18 08/04/18 # Bowel Movements 1 - Constitutional no acute distress - Routine HEENT Exam Head: Present: normocephalic Eye: Present: PERRL ENT: Present: mucous membranes moist - Routine Neck Exam Present: full ROM - Routine Respiratory Exam Present: CTA bilaterally - Routine Cardiovascular Exam Present: S1, S2. Absent: murmur, gallop, rubs - Routine Abdominal Exam Present: normoactive bowel sounds - Routine Extremities Exam Present: full ROM, pulses intact, normal capillary refill. Absent: cyanosis, clubbing, edema - Routine Skin Exam Present: intact - Routine Neurological Exam Present: oriented X3 - Detailed Neurological Exam: Coma Scale Eye Opening: Spontaneous Verbal Response: Oriented Motor Response: Obey commands [place] Coma Scale Total: 15 - Routine Psychiatric Exam Present: normal affect Results 08/04/18 04:08 08/04/18 04:08 Cardiac Enzymes 08/02/18 08/03/18 08/04/18 Range/Units 16:00 04:27 04:08 AST 15 17 (15-37) U/L Troponin I 0.40 H (0.02-0.05) ng/mL CBC 08/03/18 08/04/18 Range/Units 04:27 04:08 WBC 7.0 7.0 (4.0-11.0) th/mm3 RBC 3.65 L 3.75 L (4.50-5.90) mil/mm3 Hgb 10.2 L 10.3 L (13.0-17.0) gm/dL Hct 29.8 L 31.2 L (39.0-51.0) % Plt Count 188 202 (150-450) th/mm3 Neut # (Auto) 5.1 5.3 (1.8-7.7) th/mm3 Lymph # (Auto) 0.9 L 0.8 L (1.0-4.8) th/mm3 [place] # (Auto) 0.6 0.6 (0.0-0.9) th/mm3 Eos # (Auto) 0.2 0.2 (0.0-0.4) th/mm3 Baso # (Auto) 0.1 0.1 (0.0-0.2) th/mm3 Comprehensive Metabolic Panel 08/03/18 08/04/18 Range/Units 04:27 04:08 Sodium 140 142 (136-145) meq/L Potassium 4.2 3.9 (3.5-5.1) meq/L Chloride 107 108 H (98-107) meq/L Carbon Dioxide 27.6 25.9 (21.0-32.0) meq/L BUN 20 H 18 (7-18) mg/dL Creatinine 1.37 H 1.22 (0.60-1.30) mg/dL Calcium 8.3 L 8.2 L (8.5-10.1) mg/dL AST 15 17 (15-37) U/L ALT 17 17 (12-78) U/L Alkaline Phosphatase 71 71 (45-117) U/L Total Protein 6.5 6.8 (6.4-8.2) g/dL Albumin 2.7 L 2.6 L (3.4-5.0) g/dL Intake and Output 08/03/18 08/04/18 08/04/18 22:59 06:59 14:59 Intake Total 1302 / 1302 520 / 520 700 / 700 Output Total 700 / 700 625 / 625 Balance 602 / 602 -105 / -105 700 / 700 Intake: IV 100 / 100 Protonix Inj 80 MG In NS Inj 100 / 100 100 ML @ 10 mls/hr IV.CONT Q10H [facility] Rx#:[id number] Oral 1302 / 1302 420 / 420 Anesthesia Amount 700 / 700 Output: Urine 700 / 700 625 / 625 Other: # Voids 4 Date of Last Bowel Movement 08/03/18 08/04/18 # Bowel Movements 1 Weight 76.5 kg Assessment and Plan - Assessment (1) Chest pain Code(s): R07.9 - Chest pain, unspecified Status: Acute (2) Shortness of breath Code(s): R06.02 - Shortness of breath Status: Acute (3) Hypertension Code(s): I10 - Essential (primary) hypertension Status: Chronic (4) Anemia Code(s): D64.9 - Anemia, unspecified Status: Acute (5) Acute GI bleeding Code(s): K92.2 - Gastrointestinal hemorrhage, unspecified Status: Acute - Plan Patient had EGD and colonoscopy this morning, large bleeding ulcer found and repaired and two polyps removed; GI evaluation in progress. Patient had cardiac cath in Apr of this year which showed 60% stenosis of the left circumflex, we will continue to treat medically. Troponin level slightly elevated, possible related to demand ischemia related to the anemia. Continue current cardiac treatment plan including pravastatin. Increase patient's activity as tolerated. We will continue to follow the patient during his hospitalization and follow up in his office post discharge. The patient was seen and evaluated by Dr. Chin who participated in care, management and decision making. - Attending Attestation Patient seen and examined. I reviewed and agree with the evaluation and plan as presented. Continue monitoring. GI evaluation in progress. He remains stable from cardiac standpoint. Will schedule outpatient f/u after discharge. (4) Anemia Qualifiers: Anemia type: unspecified type Qualified Code(s): D64.9 - Anemia, unspecified
[2018-08-05 04:57] LABS: Baso # (Auto) 0.1 th/mm3 (0.0-0.2); Eos # (Auto) 0.2 th/mm3 (0.0-0.4); Hematocrit 28.8 % (39.0-51.0); Hemoglobin 9.6 gm/dL (13.0-17.0); Lymph # (Auto) 0.8 th/mm3 (1.0-4.8); Lymph % (Auto) 12.9 % (9.0-44.0); Mean Corpuscular HGB Conc 33.3 % (32.0-36.0); Mean Corpuscular Hemoglobin 27.7 pg (27.0-34.0); Mean Corpuscular Volume 83.3 fL (80.0-100.0); Mean Platelet Volume 8.5 fL (7.0-11.0); Mono # (Auto) 0.7 th/mm3 (0.0-0.9); Mono % (Auto) 10.4 % (0.0-8.0); Neut # (Auto) 4.7 th/mm3 (1.8-7.7); Neut % (Auto) 72.7 % (16.0-70.0); Platelet Count 208 th/mm3 (150-450); Red Blood Count 3.46 mil/mm3 (4.50-5.90); Red Cell Distribution Width 16.7 % (11.6-17.2); White Blood Count 6.4 th/mm3 (4.0-11.0)
[2018-08-05 05:18] LABS: Alanine Aminotransferase 15 U/L (12-78); Albumin 2.4 g/dL (3.4-5.0); Anion Gap 9 meq/L (5-15); Aspartate Aminotransferase 15 U/L (15-37); Blood Urea Nitrogen 13 mg/dL (7-18); Calcium 7.8 mg/dL (8.5-10.1); Carbon Dioxide 24.2 meq/L (21.0-32.0); Chloride 110 meq/L (98-107); Glomerular Filtration Rate 62 mL/min (>89); Glucose,Random 119 mg/dL (74-106); Potassium 3.6 meq/L (3.5-5.1); Sodium 143 meq/L (136-145)
[2018-08-05 05:20] LABS: Alkaline Phosphatase 68 U/L (45-117); Total Protein 6.3 g/dL (6.4-8.2)
[2018-08-05] MEDS: Insulin NovoLOG Aspart Correctional Sugar Inj SQ SCH ×4 (08:51→21:04)
[2018-08-05] MEDS: Finasteride 5 MG Tablet PO SCH (09:13)
[2018-08-05] MEDS: guaiFENesin 600 MG ER Tablet PO SCH ×2 (09:13→21:01)
[2018-08-05] MEDS: Budesonide-Formoterol 160/4.5 MCG 6 GM Inhaler INH SCH ×2 (09:14→21:01)
[2018-08-05] MEDS: Senna/Docusate Sodium 8.6/50 MG Tablet PO SCH ×2 (09:16→21:04)
--- NOTE | 2018-08-05 09:56 | ECG ---
Date Performed: 08/03/2018 Time Performed: 16:51:46 PTAGE: 78 years EKG: Sinus bradycardia Left bundle branch block Abnormal ECG PREVIOUS TRACING : 08/02/2018 01.21 DOCTOR: Jeremy Velasquez Interpretating Date/Time 08/05/2018 09:55:24
[2018-08-05] MEDS: Pantoprazole Inj 80 MG in Sodium Chlor 0.9% Inj 100 ML IV.CONT SCH ×2 (09:59→18:58)
--- NOTE | 2018-08-05 16:22 | P.PNGI ---
Subjective Interval history: Patient sitting up in chair Visitor at bedside Patient reports 2 BMs this a.m. with small amount of dark blood present States tolerating clear liquid diet well without any nausea or vomiting or abdominal pain Physical Exam Vital signs: Vital Signs 08/04/18 16:23 08/04/18 16:55 08/04/18 19:00 Temperature 98.7 F 98.7 F Pulse Rate 56 L 60 Respiratory Rate 18 18 Blood Pressure 166/73 H 142/63 H Pulse Oximetry 96 95 08/04/18 20:00 08/04/18 21:00 08/04/18 22:00 Temperature Pulse Rate 60 60 58 L Respiratory Rate Blood Pressure Pulse Oximetry 95 08/04/18 23:00 08/05/18 00:00 08/05/18 01:00 Temperature 98.9 F Pulse Rate 75 60 56 L Respiratory Rate 20 Blood Pressure 152/67 H Pulse Oximetry 94 L 08/05/18 02:00 08/05/18 03:00 08/05/18 04:00 Temperature 98.8 F Pulse Rate 84 55 L 57 L Respiratory Rate 18 Blood Pressure 143/65 H Pulse Oximetry 95 08/05/18 05:00 08/05/18 06:00 08/05/18 07:00 Temperature 98.5 F Pulse Rate 56 L 55 L 58 L Respiratory Rate 18 Blood Pressure 161/70 H Pulse Oximetry 98 08/05/18 08:00 08/05/18 09:38 08/05/18 10:00 Temperature Pulse Rate 52 L 55 L Respiratory Rate Blood Pressure Pulse Oximetry 97 08/05/18 11:00 08/05/18 12:00 08/05/18 13:00 Temperature 98.7 F Pulse Rate 56 L 52 L 53 L Respiratory Rate 18 Blood Pressure 153/71 H Pulse Oximetry 99 08/05/18 14:00 Temperature Pulse Rate 52 L Respiratory Rate Blood Pressure Pulse Oximetry Intake & Output 08/04/18 08/05/18 08/05/18 18:59 06:59 18:59 Intake Total 1420 / 1420 340 / 340 100 / 100 Output Total 850 / 850 Balance 570 / 570 340 / 340 100 / 100 Weight 77.5 kg Intake: IV 100 / 100 100 / 100 Protonix Inj 80 MG In NS Inj 100 / 100 100 / 100 100 ML @ 10 mls/hr IV.CONT Q10H [facility] Rx#:[id number] Oral 720 / 720 240 / 240 Anesthesia Amount 700 / 700 Output: Urine 850 / 850 Other: # Voids 3 Date of Last Bowel Movement 08/04/18 08/04/18 08/05/18 - Constitutional no acute distress - Routine HEENT Exam Head: Present: normocephalic - Routine Respiratory Exam Present: CTA bilaterally - Routine Abdominal Exam Present: soft, normoactive bowel sounds. Absent: tenderness, distended - Routine Skin Exam Present: dry, warm. Absent: pallor - Routine Neurological Exam Present: alert Results - Labs CBC & Chem 7: 08/05/18 04:38 08/05/18 04:38 Laboratory Results - last 24 hr 08/04/18 08/04/18 08/05/18 17:00 21:10 04:38 WBC 6.4 RBC 3.46 L Hgb 9.6 L Hct 28.8 L MCV 83.3 MCH 27.7 MCHC 33.3 RDW 16.7 Plt Count 208 MPV 8.5 Neut % (Auto) 72.7 H Lymph % (Auto) 12.9 [place] % (Auto) 10.4 H Eos % (Auto) 3.0 Baso % (Auto) 1.0 Neut # (Auto) 4.7 Lymph # (Auto) 0.8 L [place] # (Auto) 0.7 Eos # (Auto) 0.2 Baso # (Auto) 0.1 WBC Differential . Differential Comment Auto diff final Sodium Potassium Chloride Carbon Dioxide Anion Gap BUN Creatinine Estimated GFR POC Glucose 184 H 171 H Random Glucose Calcium Total Bilirubin AST ALT Alkaline Phosphatase Total Protein Albumin 08/05/18 08/05/18 08/05/18 04:38 07:30 11:26 WBC RBC Hgb Hct MCV MCH MCHC RDW Plt Count MPV Neut % (Auto) Lymph % (Auto) [place] % (Auto) Eos % (Auto) Baso % (Auto) Neut # (Auto) Lymph # (Auto) [place] # (Auto) Eos # (Auto) Baso # (Auto) WBC Differential Differential Comment Sodium 143 Potassium 3.6 Chloride 110 H Carbon Dioxide 24.2 Anion Gap 9 BUN 13 Creatinine 1.14 Estimated GFR 62 L POC Glucose 112 H 166 H Random Glucose 119 H Calcium 7.8 L Total Bilirubin 0.5 AST 15 ALT 15 Alkaline Phosphatase 68 Total Protein 6.3 L Albumin 2.4 L Assessment and Plan - Plan This is a 78-year-old male who presented to the hospital on 08/02/2018 with shortness of breath which led to chest pain uncontrolled at home patient also notes dark brown stools times 1 month but denies black sticky stools. Patient states that he had EGD colonoscopy set up for reevaluation on 08/07/2018 and the [facility] and was trying to make it to that appointment but felt he was unstable this past p.m. patient denies any current fever no obvious hematemesis and no bright red rectal bleeding. Patient denies any iron supplements but does have a history of multiple EGDs performed in April and May 2018 patient was treated for AVMs with APC also noted was mild gastritis. Current labs reviewed which show hemoglobin 8.9, BNP 358, normal troponin, mild renal insufficiency with BUN 19 and creatinine 1.32. Currently being monitored per cardiology and treated for moderate coronary artery disease and non-STEMI back in April 2018. Gastroenterology has been consulted to assist in his care and to evaluate for GI bleeding which could be secondary to patient's AVMs Symptomatic anemia which could be related to GI bleed and history of AVMs, currently 8.9 Melena stools times 1 month dark brown could be related to slow GI bleed Chest pain shortness of breath known for moderate coronary artery disease and followed with Dr. silva Elevated BNP 358 08/03/2018 current hemoglobin 10.2 after transfusion. Patient denies any chest pain or shortness of breath. Cardiology consult is pending finalization, but patient and staff aware that cardiac clearance is needed for EGD colonoscopy in a.m. patient's original plan was EGD and colonoscopy at the [facility], but plan is to pursue this admission. Symptomatic anemia stabilized with transfusion. No further chest pain since admission which could have been related to anemia 08/05/2018 Patient awake and alert, sitting up at bedside. Denies any nausea vomiting or abdominal pain. Endorses 2 BMs this a.m., with noted dark brown with blood clots present. States tolerating clear liquid diet well. 08/04/2018 EGD revealed the following-- 1. The esophagus appeared normal 2. Large ulcer, measuring 3 x 20mm in size, was found in the gastric fundus and cardia; Submucosal injection of 10ml of epinephrine 1:10,000 was performed around the bleeding site; Argon plasma coagulation was applied to the site; with complete hemostasis achieved 3. Retroflexed views revealed an ulcer next 08/04/2018 colonoscopy revealed the following-- 1. Moderate diverticulosis was noted 2. Two sessile polyps ranging between 3-5mm in size were found at the cecum; polypectomy was performed with cold forceps 3. Retroflexed views revealed internal hemorrhoids 4. Retroflexed views revealed medium internal hemorrhoids 5. Retroflexed views revealed internal hemorrhoids 6. Was performed 7. Revealed no abnormalities of the rectum WBC 6.4 hemoglobin 9.6 hematocrit 28.8 Plan -Regular diet soft -Monitor hemoglobin and hematocrit -Protonix 40 mg p.o. twice daily -CBC in a.m. -Patient advised to follow-up with GI for repeat EGD in 3 months -Follow-up with GI post discharge in 1 week for biopsy results -Avoid NSAIDs -Bowel regimen This patient has been seen by myself and Dr. Kraft and this note is written on his behalf - Attending Attestation Dr. Kraft
--- NOTE | 2018-08-05 17:06 | P.PNCA ---
Subjective Interval history: Patient denies any CP, pressure, palpitations, dizziness, edema or SOB. Patient denies any bleeding at this time. Medications and Allergies Allergies Allergy/AdvReac Type Severity Reaction Status Date / Time rosuvastatin AdvReac Mild CRAMPS Verified 08/02/18 01:08 Home Medications Medication Instructions Recorded Confirmed Type albuterol sulfate 2.5 mg INHALATION QID 05/22/18 08/02/18 History amlodipine 5 mg PO DAILY 05/22/18 08/02/18 History budesonide-formoterol 2 puff INHALATION BID 05/22/18 08/02/18 History enalapril maleate 10 mg PO DAILY 05/22/18 08/02/18 History finasteride 5 mg PO DAILY 05/22/18 08/02/18 History metformin 500 mg PO BID 05/22/18 08/02/18 History wuhswjlz-pipguzwj-ubxhkac fum 9 mg PO DAILY 05/22/18 08/02/18 History [Multi Vitamin] pravastatin 40 mg PO DAILY 05/22/18 08/02/18 History terazosin 10 mg PO DAILY 05/22/18 08/02/18 History aspirin [Aspirin Low Dose] 81 mg PO DAILY 08/02/18 08/02/18 History Active Medications: Active Medications Acetaminophen (Tylenol) 650 mg PO Q4H PRN PRN Reason: Temp > 100.4 Al Hydroxide/Mg Hydroxide (Milk Of [place] Liq) 30 ml PO Q12H PRN PRN Reason: Mild Constipation Albuterol (Duoneb Neb (Prn)) 1 ampul NEB Q4HR NEB PRN PRN Reason: SOB/WHEEZING Aspirin (Aspirin Chew) 162 mg PO DAILY [facility] Last Admin: 08/05/18 09:13 Dose: 162 mg Bisacodyl (Dulcolax Supp) 10 mg RECTAL DAILY PRN PRN Reason: SEVERE CONSITIPATION Budesonide/Formoterol Fumarate (Symbicort 160/4.5 Mcg Inh) 2 puff INH BID [facility] Last Admin: 08/05/18 09:14 Dose: 2 puff Dextrose (D50w Vial) 50 ml IV.PUSH UNSCH PRN PRN Reason: PER HYPOGLYCEMIA PROTOCOL Finasteride (Proscar) 5 mg PO DAILY [facility] Last Admin: 08/05/18 09:13 Dose: 5 mg Glucagon (Glucagon Inj) 1 mg OTHER PRN PRN PRN Reason: for Hypoglycemia Protocol Guaifenesin (Mucinex Er) 600 mg PO BID [facility] Last Admin: 08/05/18 09:13 Dose: 600 mg Insulin Aspart (Novolog Insulin Correctional Sugar Inj) 0 unit SQ ACHS [facility]; Protocol Last Admin: 08/05/18 11:43 Dose: 1 unit Lactulose (Lactulose Liq) 30 ml PO DAILY PRN PRN Reason: SEVERE CONSITIPATION Morphine Sulfate (Morphine Inj) 2 mg IV.PUSH Q4H PRN PRN Reason: PAIN 6-10 Ondansetron HCl (Zofran Inj) 4 mg IV.PUSH Q6H PRN PRN Reason: NAUSEA OR VOMITING Pantoprazole Sodium (Protonix) 40 mg PO BID [facility] Pravastatin Sodium (Pravachol) 40 mg PO DAILY [facility] Last Admin: 08/05/18 09:13 Dose: 40 mg Senna/Docusate Sodium (Morenita-Colace) 1 tab PO BID [facility] Last Admin: 08/05/18 09:16 Dose: Not Given Sennosides (Senokot) 17.2 mg PO Q12H PRN PRN Reason: Moderate Constipation Sodium Chloride (Ns Flush) 2 ml IV.FLUSH BID [facility] Last Admin: 08/05/18 09:16 Dose: Not Given Sodium Chloride (Ns Flush) 2 ml IV.FLUSH PRN PRN PRN Reason: FLUSH AFTER USING IV ACCESS Terazosin HCl (Hytrin) 10 mg PO DAILY [facility] Last Admin: 08/05/18 09:13 Dose: 10 mg Physical Exam Vital signs: Vital Signs 08/04/18 19:00 08/04/18 20:00 08/04/18 21:00 Temperature 98.7 F Pulse Rate 60 60 60 Respiratory Rate 18 Blood Pressure 142/63 H Pulse Oximetry 95 95 08/04/18 22:00 08/04/18 23:00 08/05/18 00:00 Temperature 98.9 F Pulse Rate 58 L 75 60 Respiratory Rate 20 Blood Pressure 152/67 H Pulse Oximetry 94 L 08/05/18 01:00 08/05/18 02:00 08/05/18 03:00 Temperature 98.8 F Pulse Rate 56 L 84 55 L Respiratory Rate 18 Blood Pressure 143/65 H Pulse Oximetry 95 08/05/18 04:00 08/05/18 05:00 08/05/18 06:00 Temperature Pulse Rate 57 L 56 L 55 L Respiratory Rate Blood Pressure Pulse Oximetry 08/05/18 07:00 08/05/18 08:00 08/05/18 09:38 Temperature 98.5 F Pulse Rate 58 L 52 L Respiratory Rate 18 Blood Pressure 161/70 H Pulse Oximetry 98 97 08/05/18 10:00 08/05/18 11:00 08/05/18 12:00 Temperature 98.7 F Pulse Rate 55 L 56 L 52 L Respiratory Rate 18 Blood Pressure 153/71 H Pulse Oximetry 99 08/05/18 13:00 08/05/18 14:00 Temperature Pulse Rate 53 L 52 L Respiratory Rate Blood Pressure Pulse Oximetry Intake & Output 08/04/18 08/05/18 08/05/18 18:59 06:59 18:59 Intake Total 1420 / 1420 340 / 340 100 / 100 Output Total 850 / 850 Balance 570 / 570 340 / 340 100 / 100 Weight 77.5 kg Intake: IV 100 / 100 100 / 100 Protonix Inj 80 MG In NS Inj 100 / 100 100 / 100 100 ML @ 10 mls/hr IV.CONT Q10H [facility] Rx#:[id number] Oral 720 / 720 240 / 240 Anesthesia Amount 700 / 700 Output: Urine 850 / 850 Other: # Voids 3 Date of Last Bowel Movement 08/04/18 08/04/18 08/05/18 - Constitutional no acute distress - Routine HEENT Exam Head: Present: normocephalic Eye: Present: PERRL ENT: Present: mucous membranes moist - Routine Neck Exam Present: full ROM - Routine Respiratory Exam Present: CTA bilaterally - Routine Cardiovascular Exam Present: S1, S2. Absent: murmur, gallop, rubs - Routine Abdominal Exam Present: normoactive bowel sounds - Routine Extremities Exam Present: full ROM, pulses intact, normal capillary refill. Absent: cyanosis, clubbing, edema - Routine Skin Exam Present: intact - Routine Neurological Exam Present: oriented X3 - Detailed Neurological Exam: Coma Scale Eye Opening: Spontaneous Verbal Response: Oriented Motor Response: Obey commands [place] Coma Scale Total: 15 - Routine Psychiatric Exam Present: normal affect Results 08/05/18 04:38 08/05/18 04:38 Cardiac Enzymes 08/04/18 08/05/18 Range/Units 04:08 04:38 AST 17 15 (15-37) U/L CBC 08/04/18 08/05/18 Range/Units 04:08 04:38 WBC 7.0 6.4 (4.0-11.0) th/mm3 RBC 3.75 L 3.46 L (4.50-5.90) mil/mm3 Hgb 10.3 L 9.6 L (13.0-17.0) gm/dL Hct 31.2 L 28.8 L (39.0-51.0) % Plt Count 202 208 (150-450) th/mm3 Neut # (Auto) 5.3 4.7 (1.8-7.7) th/mm3 Lymph # (Auto) 0.8 L 0.8 L (1.0-4.8) th/mm3 [place] # (Auto) 0.6 0.7 (0.0-0.9) th/mm3 Eos # (Auto) 0.2 0.2 (0.0-0.4) th/mm3 Baso # (Auto) 0.1 0.1 (0.0-0.2) th/mm3 Comprehensive Metabolic Panel 08/04/18 08/05/18 Range/Units 04:08 04:38 Sodium 142 143 (136-145) meq/L Potassium 3.9 3.6 (3.5-5.1) meq/L Chloride 108 H 110 H (98-107) meq/L Carbon Dioxide 25.9 24.2 (21.0-32.0) meq/L BUN 18 13 (7-18) mg/dL Creatinine 1.22 1.14 (0.60-1.30) mg/dL Calcium 8.2 L 7.8 L (8.5-10.1) mg/dL AST 17 15 (15-37) U/L ALT 17 15 (12-78) U/L Alkaline Phosphatase 71 68 (45-117) U/L Total Protein 6.8 6.3 L (6.4-8.2) g/dL Albumin 2.6 L 2.4 L (3.4-5.0) g/dL Intake and Output 08/05/18 08/05/18 08/05/18 06:59 14:59 22:59 Intake Total 340 / 340 100 / 100 Balance 340 / 340 100 / 100 Intake: IV 100 / 100 100 / 100 Protonix Inj 80 MG In NS Inj 100 / 100 100 / 100 100 ML @ 10 mls/hr IV.CONT Q10H [facility] Rx#:[id number] Oral 240 / 240 Other: # Voids 3 Date of Last Bowel Movement 08/05/18 Weight 77.5 kg Assessment and Plan - Assessment (1) Chest pain Code(s): R07.9 - Chest pain, unspecified Status: Acute (2) Shortness of breath Code(s): R06.02 - Shortness of breath Status: Acute (3) Hypertension Code(s): I10 - Essential (primary) hypertension Status: Chronic (4) Anemia Code(s): D64.9 - Anemia, unspecified Status: Acute (5) Acute GI bleeding Code(s): K92.2 - Gastrointestinal hemorrhage, unspecified Status: Acute - Plan Patient is currently on a Protonix gtt, no signs of active bleeding per patient , GI evaluation in progress. No new cardiac issues noted at this time, we will continue with current cardiac treatment plan and adjust as needed. Increase patient's activity as tolerated. Overall improved. Anticipate discharge soon. We will continue to follow the patient during his hospitalization and follow up in his office post discharge. The patient was seen and evaluated by Dr. Chin who participated in care, management and decision making. - Attending Attestation Patient seen and examined. I reviewed and agree with the evaluation and plan as presented. Continue current program. No new cardiac issues. Anticipate discharge home soon as planned. (4) Anemia Qualifiers: Anemia type: unspecified type Qualified Code(s): D64.9 - Anemia, unspecified
--- NOTE | 2018-08-05 18:24 | P.PNIM ---
Subjective Interval history: Patient is in no acute distress today. He does not have any complaints. Physical Exam Vital signs: Vital Signs 08/04/18 19:00 08/04/18 20:00 08/04/18 21:00 Temperature 98.7 F Pulse Rate 60 60 60 Respiratory Rate 18 Blood Pressure 142/63 H Pulse Oximetry 95 95 08/04/18 22:00 08/04/18 23:00 08/05/18 00:00 Temperature 98.9 F Pulse Rate 58 L 75 60 Respiratory Rate 20 Blood Pressure 152/67 H Pulse Oximetry 94 L 08/05/18 01:00 08/05/18 02:00 08/05/18 03:00 Temperature 98.8 F Pulse Rate 56 L 84 55 L Respiratory Rate 18 Blood Pressure 143/65 H Pulse Oximetry 95 08/05/18 04:00 08/05/18 05:00 08/05/18 06:00 Temperature Pulse Rate 57 L 56 L 55 L Respiratory Rate Blood Pressure Pulse Oximetry 08/05/18 07:00 08/05/18 08:00 08/05/18 09:38 Temperature 98.5 F Pulse Rate 58 L 52 L Respiratory Rate 18 Blood Pressure 161/70 H Pulse Oximetry 98 97 08/05/18 10:00 08/05/18 11:00 08/05/18 12:00 Temperature 98.7 F Pulse Rate 55 L 56 L 52 L Respiratory Rate 18 Blood Pressure 153/71 H Pulse Oximetry 99 08/05/18 13:00 08/05/18 14:00 Temperature Pulse Rate 53 L 52 L Respiratory Rate Blood Pressure Pulse Oximetry Intake & Output 08/04/18 08/05/18 08/05/18 18:59 06:59 18:59 Intake Total 1420 / 1420 340 / 340 150 / 150 Output Total 850 / 850 Balance 570 / 570 340 / 340 150 / 150 Weight 77.5 kg Intake: IV 100 / 100 150 / 150 Protonix Inj 80 MG In NS Inj 100 / 100 150 / 150 100 ML @ 10 mls/hr IV.CONT Q10H COUNT INCLUDES [facility] Rx#:[id number] Oral 720 / 720 240 / 240 Anesthesia Amount 700 / 700 Output: Urine 850 / 850 Other: # Voids 3 Date of Last Bowel Movement 08/04/18 08/04/18 08/05/18 Narrative: General patient in no acute distress HEENT extraocular movements are intact, clear oropharyngeal mucosa, no JVD Cardiovascular S1-S2 audible, RRR, no murmurs rubs or gallops Respiratory clear to auscultation bilaterally Abdomen soft, nontender, nondistended, normal bowel sounds Extremities no edema 2+ distal pulses in bilateral upper and lower extremities Neuro cranial nerves II through XII intact Results - Labs CBC & Chem 7: 08/05/18 04:38 08/05/18 04:38 Laboratory Results - last 24 hr 08/04/18 08/05/18 08/05/18 21:10 04:38 04:38 WBC 6.4 RBC 3.46 L Hgb 9.6 L Hct 28.8 L MCV 83.3 MCH 27.7 MCHC 33.3 RDW 16.7 Plt Count 208 MPV 8.5 Neut % (Auto) 72.7 H Lymph % (Auto) 12.9 Jennings % (Auto) 10.4 H Eos % (Auto) 3.0 Baso % (Auto) 1.0 Neut # (Auto) 4.7 Lymph # (Auto) 0.8 L Jennings # (Auto) 0.7 Eos # (Auto) 0.2 Baso # (Auto) 0.1 WBC Differential . Differential Comment Auto diff final Sodium 143 Potassium 3.6 Chloride 110 H Carbon Dioxide 24.2 Anion Gap 9 BUN 13 Creatinine 1.14 Estimated GFR 62 L POC Glucose 171 H Random Glucose 119 H Calcium 7.8 L Total Bilirubin 0.5 AST 15 ALT 15 Alkaline Phosphatase 68 Total Protein 6.3 L Albumin 2.4 L 08/05/18 08/05/18 08/05/18 07:30 11:26 17:18 WBC RBC Hgb Hct MCV MCH MCHC RDW Plt Count MPV Neut % (Auto) Lymph % (Auto) Jennings % (Auto) Eos % (Auto) Baso % (Auto) Neut # (Auto) Lymph # (Auto) Jennings # (Auto) Eos # (Auto) Baso # (Auto) WBC Differential Differential Comment Sodium Potassium Chloride Carbon Dioxide Anion Gap BUN Creatinine Estimated GFR POC Glucose 112 H 166 H 87 Random Glucose Calcium Total Bilirubin AST ALT Alkaline Phosphatase Total Protein Albumin Assessment and Plan - Assessment (1) CHF (congestive heart failure) Code(s): I50.9 - Heart failure, unspecified Status: Acute (2) GI bleed Code(s): K92.2 - Gastrointestinal hemorrhage, unspecified Status: Acute (3) COPD (chronic obstructive pulmonary disease) Code(s): J44.9 - Chronic obstructive pulmonary disease, unspecified Status: Acute (4) DM (diabetes mellitus) Code(s): E11.9 - Type 2 diabetes mellitus without complications Status: Acute (5) Chest pain Code(s): R07.9 - Chest pain, unspecified Status: Acute - Plan This patient is a 78-year-old male with a diagnosis of systolic CHF ejection fraction 40%, COPD, diabetes mellitus type 2 who presented to our emergency department with complaints of chest pain and was admitted for CHF exacerbation and GI bleed. Patient is status post EGD which showed a large gastric ulcer that was bleeding. The ulcer was cauterized during the EGD. 1. Acute upper GI bleed secondary to large gastric ulcer History of recurrent bleeding ulcer 4 times in the past 6 months. As mentioned above the patient presented with a GI bleed, EGD showed a large gastric ulcer that was actively bleeding and was cauterized. Hemoglobin decreased nearly by one-point since yesterday. We will continue monitor the patient's hemoglobin if no significant drop in the patient's hemoglobin tomorrow the patient will likely be discharged. Continue PPI p.o. twice daily. Colonoscopy was also done which showed moderate diverticulosis, internal hemorrhoids. Avoid NSAIDs GI following the patient and recommends repeat EGD in 3 months. 2. Chest pain 3. Elevated troponin Patient did have a slight elevation in his serum troponin of 0.4. Cardiology evaluated the patient. Recommendations currently are to continue with medical management. 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 The elevation in troponin is possibly secondary to demand ischemia from a GI bleed. Continue aspirin, statin. No beta-charlie as the patient is bradycardic with a heart rate in the 50s. 4. Systolic CHF Continue aspirin, statin, no beta-charlie as the patient is currently bradycardic with a heart rate in the 50s. Patient appears euvolemic. 5. Diabetes mellitus type 2 Continue to follow the patient's blood sugars. Continue low-dose insulin sliding scale. Diabetic diet. 6. COPD Continue DuoNeb treatments as needed, continue Symbicort. SCDs for DVT prophylaxis. Discharge planning, the patient will likely be discharged tomorrow as long as hemoglobin is stable.
[2018-08-05 21:47] VITALS: O2SAT 97
[2018-08-06 08:02] LABS: Baso # (Auto) 0.1 th/mm3 (0.0-0.2); Baso % (Auto) 1.7 % (0.0-2.0); Eos # (Auto) 0.2 th/mm3 (0.0-0.4); Eos % (Auto) 3.9 % (0.0-4.0); Hematocrit 30.9 % (39.0-51.0); Hemoglobin 10.5 gm/dL (13.0-17.0); Lymph # (Auto) 0.8 th/mm3 (1.0-4.8); Lymph % (Auto) 13.5 % (9.0-44.0); Mean Corpuscular Hemoglobin 28.4 pg (27.0-34.0); Mean Corpuscular Volume 83.4 fL (80.0-100.0); Mean Platelet Volume 8.6 fL (7.0-11.0); Mono # (Auto) 0.6 th/mm3 (0.0-0.9); Mono % (Auto) 9.7 % (0.0-8.0); Neut # (Auto) 4.1 th/mm3 (1.8-7.7); Neut % (Auto) 71.2 % (16.0-70.0); Platelet Count 241 th/mm3 (150-450); Red Cell Distribution Width 16.5 % (11.6-17.2); White Blood Count 5.7 th/mm3 (4.0-11.0)
[2018-08-06 08:46] VITALS: BP 177/77; PULSE 63; RESP 20; TEMP 97.4
[2018-08-06] MEDS: Insulin NovoLOG Aspart Correctional Sugar Inj SQ SCH (08:52)
[2018-08-06] MEDS: guaiFENesin 600 MG ER Tablet PO SCH (08:53)
[2018-08-06] MEDS: Senna/Docusate Sodium 8.6/50 MG Tablet PO SCH (08:53)
[2018-08-06] MEDS: Finasteride 5 MG Tablet PO SCH (08:53)
[2018-08-06] MEDS: Budesonide-Formoterol 160/4.5 MCG 6 GM Inhaler INH SCH (08:55)
--- NOTE | 2018-08-06 13:30 | P.PNCA ---
Subjective Interval history: Patient denies any CP, pressure, palpitations, dizziness, edema or SOB. Patient states that he is feeling much better at this time. Medications and Allergies Allergies Allergy/AdvReac Type Severity Reaction Status Date / Time rosuvastatin AdvReac Mild CRAMPS Verified 08/02/18 01:08 Home Medications Medication Instructions Recorded Confirmed Type albuterol sulfate 2.5 mg INHALATION QID 05/22/18 08/02/18 History amlodipine 5 mg PO DAILY 05/22/18 08/02/18 History budesonide-formoterol 2 puff INHALATION BID 05/22/18 08/02/18 History enalapril maleate 10 mg PO DAILY 05/22/18 08/02/18 History finasteride 5 mg PO DAILY 05/22/18 08/02/18 History metformin 500 mg PO BID 05/22/18 08/02/18 History pfatfodh-lpxwrhsq-jhtnosc fum 9 mg PO DAILY 05/22/18 08/02/18 History [Multi Vitamin] pravastatin 40 mg PO DAILY 05/22/18 08/02/18 History terazosin 10 mg PO DAILY 05/22/18 08/02/18 History aspirin [Aspirin Low Dose] 81 mg PO DAILY 08/02/18 08/02/18 History Physical Exam Vital signs: Vital Signs 08/05/18 14:00 08/05/18 15:00 08/05/18 16:00 Temperature 98.5 F Pulse Rate 52 L 55 L 55 L Respiratory Rate 18 Blood Pressure 153/63 H Pulse Oximetry 08/05/18 17:00 08/05/18 18:00 08/05/18 20:00 Temperature Pulse Rate 54 L 55 L 57 L Respiratory Rate Blood Pressure Pulse Oximetry 08/05/18 21:00 08/05/18 23:00 08/06/18 00:00 Temperature 98.0 F 98.8 F Pulse Rate 55 L 62 55 L Respiratory Rate 20 16 18 Blood Pressure 170/74 H 151/69 H Pulse Oximetry 97 97 08/06/18 04:00 08/06/18 06:09 08/06/18 08:10 Temperature 97.4 F L Pulse Rate 52 L 63 Respiratory Rate 18 20 Blood Pressure 172/70 H 177/77 H Pulse Oximetry 97 Intake & Output 12/11/18 12/12/18 12/12/18 18:59 06:59 18:59 Intake Total 870 / 870 240 / 240 Balance 870 / 870 240 / 240 Intake: IV 150 / 150 Protonix Inj 80 MG In NS Inj 150 / 150 100 ML @ 10 mls/hr IV.CONT Q10H [facility] Rx#:[id number] Oral 720 / 720 240 / 240 Other: # Voids 4 Date of Last Bowel Movement 08/05/18 08/05/18 08/05/18 - Constitutional no acute distress - Routine HEENT Exam Head: Present: normocephalic Eye: Present: PERRL ENT: Present: mucous membranes moist - Routine Neck Exam Present: full ROM - Routine Respiratory Exam Present: CTA bilaterally - Routine Cardiovascular Exam Present: S1, S2, bradycardia. Absent: murmur, gallop - Routine Abdominal Exam Present: normoactive bowel sounds - Routine Extremities Exam Present: full ROM, pulses intact, normal capillary refill. Absent: cyanosis, clubbing, edema - Routine Skin Exam Present: intact - Routine Neurological Exam Present: oriented X3 - Detailed Neurological Exam: Coma Scale Eye Opening: Spontaneous Verbal Response: Oriented Motor Response: Obey commands [place] Coma Scale Total: 15 - Routine Psychiatric Exam Present: normal affect Results 08/06/18 07:46 08/05/18 04:38 Cardiac Enzymes 08/05/18 Range/Units 04:38 AST 15 (15-37) U/L CBC 08/05/18 08/06/18 Range/Units 04:38 07:46 WBC 6.4 5.7 (4.0-11.0) th/mm3 RBC 3.46 L 3.70 L (4.50-5.90) mil/mm3 Hgb 9.6 L 10.5 L (13.0-17.0) gm/dL Hct 28.8 L 30.9 L (39.0-51.0) % Plt Count 208 241 (150-450) th/mm3 Neut # (Auto) 4.7 4.1 (1.8-7.7) th/mm3 Lymph # (Auto) 0.8 L 0.8 L (1.0-4.8) th/mm3 Perry # (Auto) 0.7 0.6 (0.0-0.9) th/mm3 Eos # (Auto) 0.2 0.2 (0.0-0.4) th/mm3 Baso # (Auto) 0.1 0.1 (0.0-0.2) th/mm3 Comprehensive Metabolic Panel 08/05/18 Range/Units 04:38 Sodium 143 (136-145) meq/L Potassium 3.6 (3.5-5.1) meq/L Chloride 110 H (98-107) meq/L Carbon Dioxide 24.2 (21.0-32.0) meq/L BUN 13 (7-18) mg/dL Creatinine 1.14 (0.60-1.30) mg/dL Calcium 7.8 L (8.5-10.1) mg/dL AST 15 (15-37) U/L ALT 15 (12-78) U/L Alkaline Phosphatase 68 (45-117) U/L Total Protein 6.3 L (6.4-8.2) g/dL Albumin 2.4 L (3.4-5.0) g/dL Intake and Output 08/05/18 08/06/18 08/06/18 22:59 06:59 14:59 Intake Total 770 / 770 240 / 240 Balance 770 / 770 240 / 240 Intake: IV 50 / 50 Protonix Inj 80 MG In NS Inj 50 / 50 100 ML @ 10 mls/hr IV.CONT Q10H [facility] Rx#:[id number] Oral 720 / 720 240 / 240 Other: # Voids 4 Date of Last Bowel Movement 08/05/18 08/05/18 Assessment and Plan - Assessment (1) Chest pain Code(s): R07.9 - Chest pain, unspecified Status: Acute (2) Shortness of breath Code(s): R06.02 - Shortness of breath Status: Acute (3) Hypertension Code(s): I10 - Essential (primary) hypertension Status: Chronic (4) Anemia Code(s): D64.9 - Anemia, unspecified Status: Acute (5) Acute GI bleeding Code(s): K92.2 - Gastrointestinal hemorrhage, unspecified Status: Acute - Plan Patients's overall condition has improved. There are no new cardiac issues noted at this time, continues to remain stable. Patient can be discharged home from a cardiology standpoint. Patient is currently on a Protonix gtt, no signs of active bleeding per patient , GI evaluation in progress. We will continue to follow the patient during his hospitalization and follow up in our office post discharge. The patient was seen and evaluated by Dr. Chin who participated in care, management and decision making. - Attending Attestation Patient seen and examined. I reviewed and agree with the evaluation and plan as presented. He remains stable from cardiac standpoint. DC home. Will schedule f/ u in our office after discharge. (4) Anemia Qualifiers: Anemia type: unspecified type Qualified Code(s): D64.9 - Anemia, unspecified
== END 2018-08-06 13:00 | disposition home or self-care (01) ==
LOC: NEPC 01:04 → NEDA 02:55 → HCPC 04:50 → HCIS 08-05 10:08 → N05 08-05 19:46
PROVIDERS: ADMIT Hospitalist; ATTEND Hospitalist
PROC: COLONOS (2018-08-04 09:10)
PROC: PANENDO (2018-08-04 09:10)